=== PATIENT | male | born 1930 | race Caucasian/White ===

== ENCOUNTER 2017-11-07 10:28 | Emergency (ER) | payer MEDICARE, OTHER ==
[2017-11-07] MEDS ORDERED: Acetaminophen 500 MG TAB ONE (11:12)
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
[2017-11-07] MEDS ORDERED: Ibuprofen 200 MG TAB ONE (14:02)
[2017-11-07] MEDS ORDERED: HYDROcodone/Acetaminophen 5/325 mg Tablet ONE (14:02)
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
== END 2017-11-07 17:55 | disposition home or self-care (01) ==
LOC: ERS 10:28
DX: S22.069A Unspecified fracture of T7-T8 vertebra, initial encounter for closed fracture (principal); S22.089A Unspecified fracture of T11-T12 vertebra, initial encounter for closed fracture; G40.909 Epilepsy, unspecified, not intractable, without status epilepticus; E78.5 Hyperlipidemia, unspecified; I48.91 Unspecified atrial fibrillation; F03.90 Unspecified dementia, unspecified severity, without behavioral disturbance, psychotic disturbance, mood disturbance, and anxiety; Z79.01 Long term (current) use of anticoagulants; Z79.899 Other long term (current) drug therapy; V43.62XA Car passenger injured in collision with other type car in traffic accident, initial encounter
CPT/HCPCS: 72072; 72125; 72128; 99284; L0639

== ENCOUNTER 2017-12-06 10:03 | Outpatient (CLI) | payer MEDICARE ==
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
== END 2017-12-06 10:04 | disposition home or self-care (01) ==
LOC: TBSIIMAG 10:03
PROVIDERS: ATTEND Neurological Surgery
DX: S22.000A Wedge compression fracture of unspecified thoracic vertebra, initial encounter for closed fracture (principal)
CPT/HCPCS: 72070

== ENCOUNTER 2018-04-08 19:31 | Inpatient (IN) | payer MEDICARE ==
[2018-04-08] MEDS ORDERED: Acetaminophen 500 MG TAB ONE (20:03)
[2018-04-08 20:14] LABS: #Basophils 0.1 thou/uL (0.0-0.2); #Lymphocytes 0.5 thou/uL (1.20-3.40); #Monocytes 0.8 thou/uL (0.11-0.59); #Neutrophils 14.2 thou/uL (1.40-6.50); %Basophils 0.3 % (0.0-1.0); %Lymphocytes 3.2 % (21.0-51.0); %Monocytes 5.2 % (0.0-10.0); %Neutrophils 91.3 % (42.0-75.0); Hemoglobin 9.3 g/dL (14.0-18.0); Mean Corpuscular HGB CONC 32.3 g/dL (32.0-36.0); Mean Corpuscular Hemoglobin 27.6 pg (27.0-31.0); Mean Corpuscular Volume 85.4 fl (80.0-94.0); Platelet Count 173 thou/uL (130-400); RBC Distribution Width 15.3 % (11.5-14.5); Red Blood Cell (RBC) Count 3.36 mill/uL (4.70-6.10); White Blood Cell (WBC) Count 15.5 thou/uL (4.8-10.8)
[2018-04-08 20:27] LABS: ALT (SGPT) 13 U/L (8-55); AST (SGOT) 21 U/L (5-34); Albumin 4.1 g/dL (3.4-4.8); Alkaline Phosphatase 131 U/L (40-150); Anion Gap 14 mmol/L (10-20); BUN (Urea Nitrogen) 17 mg/dL (8.4-25.7); Bilirubin, Total 0.8 mg/dL (0.2-1.2); Calc. Creatinine Clearance 0 mL/min (70-130); Calcium 8.8 mg/dL (7.8-10.44); Carbon Dioxide 21 mmol/L (23-31); Chloride 105 mmol/L (98-107); Estimated GFR-MDRD 74; Globulin 2.6 g/dL (2.4-3.5); Glucose 166 mg/dL (83-110); Potassium 4.2 mmol/L (3.5-5.1); Protein, Total 6.7 g/dL (5.8-8.1); Sodium 136 mmol/L (136-145)
[2018-04-08] MEDS ORDERED: cefTRIAXone\\ROCEPHIN 1 GM VIAL ONE (20:34)
--- NOTE | 2018-04-08 21:44 | RAD ---
TWO VIEWS CHEST: 04/08/18 HISTORY: Fever and cough. PA and lateral view of the chest is obtained on 04/08/18. Comparison made to previous exam from 03/03/05. Two views chest demonstrates sternotomy wires seen. There is a prosthetic cardiac valve seen. Small b ilateral pleural effusions seen. Pulmonary vascular congestion is seen. Areas of air space opacities seen in the right middle lobe concerning for a right middle lobe pneumon ia. IMPRESSION: 1. Cardiomegaly and pulmonary vascular congestion. 2. Area of air space opacity compatible with an area of right middle lobe pneumonia. POS: [facility]
[2018-04-08 21:50] LABS: Bilirubin Small (Negative); Blood, Urine Negative (Negative); Clarity Slightly Cloudy (Clear); Glucose, Urine (Dipstick) Negative (Negative); Leukocyte Negative (Negative); Nitrite Negative (Negative); Protein, Urine (Dipstick) 30 mg/dL (Neg-Trace); Specific Gravity, Urine 1.025 (1.005-1.030); Urobilinogen 0.2 mg/dL (0.2-1.0); pH, Urine 5.5 (5.0-9.0)
[2018-04-08 21:52] LABS: RBC/HPF 0-3 HPF (0-3); Squamous Epithelial 0-3 HPF (0-3); WBC/HPF 0-3 HPF (0-3)
[2018-04-08 21:53] LABS: Bacteria/HPF Rare-Few HPF (None Seen)
[2018-04-08] MEDS ORDERED: Azithromycin 500 MG VIAL ONE (22:25)
[2018-04-08] MEDS ORDERED: Sodium Chloride 0.9% 500 ML IV SCH (23:34)
[2018-04-08] MEDS ORDERED: Acetaminophen 325 MG TAB PO PRN (23:34)
[2018-04-08 23:58] VITALS: BMI 26.1
[2018-04-09] MEDS ORDERED: Ondansetron ODT 4 MG TAB PO PRN (01:20)
[2018-04-09] MEDS ORDERED: Ondansetron HCl/PF 4 MG/2 ML Vial IVP PRN (01:20)
[2018-04-09] MEDS ORDERED: hydrALAZINE 20 MG/ML VIAL SLOW IVP PRN (01:20)
[2018-04-09] MEDS ORDERED: cloNIDine 0.1 MG TAB PO PRN (01:20)
[2018-04-09] MEDS ORDERED: Benzonatate 100 MG CAP PO PRN (01:20)
[2018-04-09] MEDS: Levothyroxine Sodium 100 MCG TAB PO SCH (02:43)
[2018-04-09] MEDS: Acetaminophen 500 MG TAB PO PRN (04:01)
[2018-04-09 05:04] LABS: Anion Gap 10 mmol/L (10-20); BUN (Urea Nitrogen) 15 mg/dL (8.4-25.7); Calc. Creatinine Clearance 79 mL/min (70-130); Calcium 8.2 mg/dL (7.8-10.44); Carbon Dioxide 24 mmol/L (23-31); Chloride 105 mmol/L (98-107); Estimated GFR-MDRD 87; Glucose 131 mg/dL (83-110); Potassium 3.9 mmol/L (3.5-5.1); Sodium 135 mmol/L (136-145)
[2018-04-09 05:48] LABS: Band 4 % (5-11); Hemoglobin 8.7 g/dL (14.0-18.0); Hypochromia SLIGHT = 6-15 cells (100X) (0-5/hpf); Lymphocytes 5 % (21-51); MDiff Complete? YES; Mean Corpuscular HGB CONC 32.2 g/dL (32.0-36.0); Mean Corpuscular Hemoglobin 28.7 pg (27.0-31.0); Mean Corpuscular Volume 89.1 fl (80.0-94.0); Mean Platelet Volume 8.6 fL (7.4-10.4); Monocytes 5 % (0-10); Neutrophil 86 % (42-75); PLT Morphology Comment Appears Adequate; Platelet Count 162 thou/uL (130-400); RBC Distribution Width 15.4 % (11.5-14.5); Red Blood Cell (RBC) Count 3.02 mill/uL (4.70-6.10); White Blood Cell (WBC) Count 13.5 thou/uL (4.8-10.8)
--- NOTE | 2018-04-09 06:49 | HP ---
DATE OF ADMISSION: 04/09/2018 PRIMARY CARE PHYSICIAN: Jacobo Lai [facility] in [place], [place]. CHIEF COMPLAINT: Productive cough with blood-tinged sputum. HISTORY OF PRESENT ILLNESS: This is an 87-year-old male who presented to [facility] Emergency Department complaining of blood tinged sputum which began in the last 24 h ours. The patient states he has been coughing for 4-6 weeks which has essentially been nonproductive , becoming more productive in the last 3-4 days. The patient apparently saw his primary care provide r within the last week and was placed on cough suppressant and another unknown type of medicine. The patient states his cough improved somewhat after initiating the cough suppressant, but had noticed p ain sputum in the last 24 hours. The patient denies any recent smoking and states he has remote use, quitting over 55 years prior to this evaluation. The patient states he has been compliant with his chronic medication regimen and denies any sick exposure history. The patient has noticed some lower extremity swelling, but continues to take a home diuretic for control of his edema. The patient admi ts he is currently on his influenza and pneumonia vaccination, receiving these through the [facility]. The patient denies any recent trauma, travel history, or family members who are ill. In th e emergency room, the patient underwent general evaluation including chest imaging, showing a right m iddle lobe infiltrate as well as pulmonary vascular prominence and cardiomegaly. Patient received Zi thromax, Rocephin, normal saline, and acetaminophen in the emergency room. The patient overall sympt omatically improved after transfer to the intermediate care unit. PAST MEDICAL HISTORY: 1. Chronic atrial fibrillation. 2. Hypertension. 3. History of seizures. 4. Hyperlipidemia. 5. 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 6. Pulmonary hypertension. 7. Obstructive sleep apnea with nocturnal CPAP. 8. Coronary artery disease. 9. Hypothyroidism. 10. History of gout. 11. Gastroesophageal reflux disease. 12. Chronic congestive heart failure with unknown ejection fraction. 13. Benign prostatic hyperplasia. PAST SURGICAL HISTORY: 1. Status post aortic valve replacement with bovine valve. 2. Status post coronary artery bypass grafting x1 with maze procedure. 3. Status post lumbar laminectomy. 4. Status post multiple cardiac catheterizations. 5. Status post tonsillectomy. 6. Status post cholecystectomy. 7. Status post left-thumb amputation. 8. Status post ERCP and colonoscopy. CURRENT MEDICATIONS: 1. Enteric coated aspirin 81 mg 1 tab p.o. daily. 2. Lipitor 20 mg p.o. daily. 3. Vitamin B12 1000 mcg p.o. at bedtime. 4. Lasix 40 mg p.o. daily. 5. Levothyroxine 100 mcg p.o. daily. 6. Toprol-XL 25 mg p.o. daily. 7. Niacin 50 mg p.o. daily. 8. Phenytoin 300 mg p.o. q.a.m. and 200 mg p.o. at bedtime. 9. Aldactone 50 mg p.o. b.i.d. ALLERGIES: PENICILLIN. FAMILY HISTORY: Positive for coronary artery disease. 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 [place] . Remote tobacco use greater than 5 0 years prior to this evaluation. Resides in [place], [place]. No alcohol or illicit drug use. REVIEW OF SYSTEMS: The following complete review of systems was negative, unless otherwise mentioned in the HPI or below: Constitutional: Weight loss or gain, ability to conduct usual activities. Sk in: Rash, itching. Eyes: Double vision, pain. ENT/Mouth: Nose bleeding, neck stiffness, pain, te nderness. Cardiovascular: Palpitations, dyspnea on exertion, orthopnea. Respiratory: Shortness of breath, wheezing, cough, hemoptysis, fever or night sweats. Gastrointestinal: Poor appetite, abdom inal pain, heartburn, nausea, vomiting, constipation, or diarrhea. Genitourinary: Urgency, frequenc y, dysuria, nocturia. Musculoskeletal: Pain, swelling. Neurologic/Psychiatric: Anxiety, depressio n. Allergy/Immunologic: Skin rash, bleeding tendency. PHYSICAL EXAMINATION: VITAL SIGNS: On admission, blood pressure 137/73, pulse 100, respiratory rate 20, temperature 98.4 d egrees Fahrenheit, O2 saturation 100% on 2 liters per minute by nasal cannula. GENERAL APPEARANCE: This is an 87-year-old male, alert and oriented x3, pleasant, conversa nt, in no acute distress. HEENT: Pupils are equal, round, and reactive to light and accommodation. Extraocular muscles are in tact. No scleral icterus, no conjunctival injection. Nares patent. OP is clear. Teeth in fair rep air. NECK: Supple. No cervical adenopathy, no thyromegaly, no carotid bruits, no JVD appreciated. Cervi yara spine with full active and passive range of motion. No meningeal signs appreciated. CHEST: Scattered rhonchi with bibasilar crackles. CARDIOVASCULAR: S1, S2 with irregular rate and rhythm with a 2/6 systolic ejection murmur loudest in the right upper sternal border. ABDOMEN: Rounded, soft, nontender, nondistended. Bowel sounds are positive in all four quadrants. No hepatosplenomegaly, no abdominal bruits, no rebound or guarding appreciated. EXTREMITIES: Warm and dry with fair turgor. Mild pitting edema to the proximal shins bilaterally. Pulses palpable distally at the dorsalis pedis, posterior tibial, and popliteal arteries bilaterally. Capillary refill less than 2 seconds. NEUROLOGIC: Cranial nerves II through XII are grossly intact. No focal or lateralizing signs apprec iated. PERTINENT LABORATORY AND X-RAY FINDINGS: Sodium 136, potassium 4.2, chloride 105, CO2 of 21, BUN 17, creatinine 0.96, estimated GFR 74, glucose 166. Lactic acid level 1.2, calcium 8.8. LFTs within no rmal limits. CBC showed a white blood cell count of 15.5, hemoglobin 9, hematocrit 29, platelet coun t 173 with 91% neutrophils. Portable chest x-ray dated 04/08/2018, by my review shows cardiomegaly w ith pulmonary vascular prominence and questionable right middle lobe infiltrate. EKG dated 8, by my interpretation shows atrial fibrillation with rapid ventricular response with heart rates in the 120s. Attenuated R waves in the precordial leads. Left axis deviation noted. No acute ST-T wa ve changes appreciated. ASSESSMENT AND PLAN: 1. Community-acquired right middle lobe pneumonia. The patient will be admitted to the intermediate care unit. Suspected gram positive organisms with potentially streptococcal species. We will raphael nue Levaquin 750 mg IV q.24 hours. Blood cultures pending x2. Continue general pulmonary supportive measures. Confirm pneumonia vaccination status. 2. Atrial fibrillation with rapid ventricular response. We will resume metoprolol XL 25 mg daily. Continue telemetry monitoring. Suspect tachycardia related to #1. Continue supportive management as outlined in #1. 3. Congestive heart failure. Ejection fraction unknown currently. We will obtain 2D transthoracic echocardiogram for accurate ejection fraction and to assess valvular function. Continue Lasix 40 mg p.o. daily. May consider intravenous diuretic therapy. The patient clinically decompensates. Check BNP level in the a.m. 4. Hypothyroidism. Continue levothyroxine 100 mcg p.o. daily. 5. Seizure disorder. Continue phenytoin 300 mg p.o. q.a.m. and 200 mg p.o. at bedtime. 6. Normocytic anemia. Chronic when compared with prior CBC. No current evidence to suggest acute b lood loss. Repeat CBC in the a.m. 7. Prophylaxis. Sequential compression devices while in bed. Pepcid 20 mg p.o. b.i.d. 8. Code status is FULL. Surrogate medical decision maker is patient's spouse.
[2018-04-09] MEDS: Furosemide 40 MG TAB PO SCH (08:21)
[2018-04-09] MEDS: Aspirin 81 mg Enteric Coated Tablet PO SCH (08:21)
[2018-04-09] MEDS: Atorvastatin Calcium 20 MG TAB PO SCH (08:21)
[2018-04-09] MEDS: Famotidine 20 MG TAB PO SCH ×2 (08:21→21:22)
[2018-04-09] MEDS: Spironolactone 25 MG TAB PO SCH ×2 (08:22→21:22)
[2018-04-09 11:49] LABS: Reticulocyte Count 1.7 % (0.5-1.5)
[2018-04-09 12:09] LABS: Iron 17 ug/dL (65-175); Iron Binding Capacity, Total 288 mcg/dL (261-462)
[2018-04-09 12:37] LABS: Free T4 (Free Thyroxine) 0.87 ng/dL (0.70-1.48); Thyroid Stimulating Hormone 2.6064 uIU/mL (0.35-4.94)
--- NOTE | 2018-04-09 13:57 | CON ---
DATE OF CONSULTATION: 04/09/2018 CONSULTING PHYSICIAN: Dr. Grey from the [facility]. REASON FOR CONSULTATION: Blood tinged sputum and cough. HISTORY OF PRESENT ILLNESS: This is a pleasant 87-year-old male, who gives his own history without l imitation. He came to the hospital yesterday with blood tinged sputum. He says he has been coughing for about 4-6 weeks. He has had at least two steroid dose packs and may have had some antibiotics a s an outpatient, but he is not for sure. He says symptoms have been exacerbated by getting out and m owing his grass. He feels better today. PAST MEDICAL HISTORY: 1. Chronic atrial fibrillation. 2. Hypertension. 3. Seizure disorder. 4. Hyperlipidemia. 5. Chronic kidney disease. 6. HERMES, requiring CPAP. 7. Pulmonary hypertension. 8. Coronary artery disease. 8. Hypothyroidism. 9. Gout. 10. Gastroesophageal reflux. 11. Chronic systolic heart failure. 12. Benign prostatic hypertrophy. PAST SURGICAL HISTORY: 1. Aortic valve replacement. 2. Coronary bypass grafting. 3. Lumbar laminectomy. 4. Cardiac catheterization. 5. Tonsillectomy. 6. Cholecystectomy. 7. Left thumb amputation. 8. ERCP with colonoscopy. MEDICATIONS PRIOR TO ADMISSION: Aspirin 81 mg daily, Lipitor 20 mg daily, vitamin B12 at 1000 mcg ni [facility], Lasix 40 mg daily, levothyroxine 100 mcg daily, Aldactone 50 mg twice daily, Toprol-XL 25 mg d aily, niacin 50 mg daily, phenytoin 300 mg in the morning and 200 mg at night. ALLERGIES: PENICILLIN. FAMILY MEDICAL HISTORY: Remarkable for coronary artery disease. SOCIAL HISTORY: Patient quit smoking more than 50 years ago. 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 He live s in [facility], does not consume alcohol, does not use illicit drugs. He is still fairly active aroun d the house. REVIEW OF SYSTEMS: Remarkable for shortness of breath, congestion, low grade fever, chills, and a pr oductive cough. Otherwise, 12-point review of system is negative. PHYSICAL EXAMINATION: VITAL SIGNS: Temperature 98.0, but last night got as high as 99.4, pulse 96, respirations 18, O2 sat 100% on 2 liters, and blood pressure 131/78. GENERAL: He is awake and alert and in no distress. HEENT: Pupils react. Sclerae icteric. Oropharynx is clear. NECK: No adenopathy, JVD, or bruits. LUNGS: He has inspiratory crackles in both bases. No dullness to percussion. CARDIAC: S1 and S2, irregularly irregular, without murmur, rub, or gallop. ABDOMEN: Soft, nontender, nondistended. EXTREMITIES: No clubbing, cyanosis, or edema. LAB AND X-RAY FINDINGS: Sodium 135, potassium 3.9, chloride 105, CO2 of 24, BUN 15, creatinine 0.8, glucose 131. White blood count 13.5, hematocrit 26.9, platelet count 162, 86% neutrophils, 4% bands. X-ray shows infiltrative changes primarily in the right base. ASSESSMENT: 1. Right middle lobe pneumonia. 2. Suspected concurrent mild congestive heart failure. 3. History of chronic systolic heart failure. 4. History of seizure disorder. PLAN: 1. The patient is currently on Levaquin, which I assume is being preferred because of his allergy to PENICILLINS. We have to keep in mind that Levaquin does lower the seizure threshold and should seiz ure returned, this may need to be changed to an alternative substance such as doxycycline. 2. We would obtain echocardiogram and perhaps have his test and turn up technician involved. This could be simply an exacerbation of his heart failure. 3. He is stable for transfer to telemetry at any point. 4. We will follow with you.
[2018-04-09] MEDS: Cyanocobalamin (Vitamin B-12) 1,000 MCG TAB PO SCH (21:22)
[2018-04-09] MEDS: Phenytoin 50 MG Chewable Tablet PO SCH (21:22)
[2018-04-10] MEDS: Levothyroxine Sodium 100 MCG TAB PO SCH (06:39)
[2018-04-10] MEDS: Aspirin 81 mg Enteric Coated Tablet PO SCH (09:12)
[2018-04-10] MEDS: Famotidine 20 MG TAB PO SCH ×2 (09:12→20:29)
[2018-04-10] MEDS: Atorvastatin Calcium 20 MG TAB PO SCH (09:12)
[2018-04-10] MEDS: Furosemide 40 MG TAB PO SCH (09:12)
[2018-04-10] MEDS: Spironolactone 25 MG TAB PO SCH ×2 (09:13→20:29)
--- NOTE | 2018-04-10 11:20 | PRG ---
DATE OF SERVICE: 04/10/2018 SUBJECTIVE: Mr. Giles feels better today. OBJECTIVE: VITAL SIGNS: His temperature is 98.0, pulse 99, respirations 24, O2 sat 99% on room air. HEENT: Unremarkable. NECK: Without adenopathy or JVD. LUNGS: A few crackles both bases. CARDIAC: S1 and S2 regular. ABDOMEN: Soft. EXTREMITIES: No edema. LABORATORY DATA: No new labs were done today. ASSESSMENT: 1. Right middle lobe pneumonia 2. Diastolic cardiac dysfunction. 3. History of seizure disorder. 4. Obstructive sleep apnea. PLAN: 1. His AHI on his CPAP machine shows an elevated index of 57 events per hour. It is clear that the CPAP is probably not working very well. 2. In terms of his pneumonia, he seems to be responding to the Levaquin. 3. Continue diuretics. 4. He is stable for transfer out to the medical floor. I will continue the antibiotics for another day or two.
--- NOTE | 2018-04-10 15:43 | PDOC.PN ---
- Subjective Encounter Start Date: 04/10/18 Encounter Start Time: 10:00 Pt seen for followup re: community acquired pneumonia. Reports cough and blood- tinged sputum. No fevers. - Objective Resuscitation Status: Resuscitation Status FULL:Full Resuscitation MAR Reviewed: Yes Vital Signs & Weight: Vital Signs (12 hours) Temp Pulse Resp BP BP Pulse Ox 04/10/18 13:45 97.8 F 101 H 20 136/78 100 04/10/18 11:49 97.7 F 107 H 13 131/69 94 L 04/10/18 07:54 98.0 F 99 24 H 99 04/10/18 07:49 98.0 F 124 H 24 H 136/70 04/10/18 03:49 100.1 F H 112 H 16 145/77 H 97 Weight Weight 192 lb 14.4 oz I&O: 04/09/18 04/10/18 04/11/18 06:59 06:59 06:59 Intake Total 670 1400 Output Total 375 500 Balance 295 900 Result Diagrams: 04/09/18 04:14 04/09/18 04:14 EKG Reviewed by me: Yes (Tele: elizabet eaton) Phys Exam - Physical Examination Constitutional: NAD HEENT: moist MMs, sclera anicteric, oral pharynx no lesions, 2+ tonsils Neck: no nodes, no JVD, supple, full ROM Respiratory: no wheezing, no rhonchi crackles R midlung Cardiovascular: no rub, irregular S1, S2 Gastrointestinal: soft, non-tender, no distention, positive bowel sounds Neurological: moves all 4 limbs Psychiatric: normal affect, A&O x 3 Dx/Plan (1) CAP (community acquired pneumonia) Code(s): J18.9 - PNEUMONIA, UNSPECIFIED ORGANISM Status: Acute Comment: continue IV antibiotics as below (2) Afib Code(s): I48.91 - UNSPECIFIED ATRIAL FIBRILLATION Status: Chronic Comment: continue beta brina. Rate-controlled (3) CHF (congestive heart failure) Code(s): I50.9 - HEART FAILURE, UNSPECIFIED Status: Chronic Comment: Continue oral furosemide (4) Hypothyroidism Code(s): E03.9 - HYPOTHYROIDISM, UNSPECIFIED Status: Chronic Comment: stable , continue thyroid replacement therapy - Plan * . Review of Systems - Review of Systems Constitutional: negative: fever, chills, sweats, weakness, malaise Respiratory: Cough, Hemoptysis, SOB with Excertion, Sputum. negative: Dry, Shortness of Breath, Pleuritic Pain, Wheezing Cardiovascular: negative: chest pain, palpitations, orthopnea, paroxysmal nocturnal dyspnea, edema, light headedness Gastrointestinal: negative: Nausea, Vomiting, Abdominal Pain, Diarrhea, Constipation, Melena, Hematochezia Genitourinary: negative: Dysuria, Frequency, Incontinence, Hematuria, Retention - Medications/Allergies Allergies/Adverse Reactions: Allergies Allergy/AdvReac Type Severity Reaction Status Date / Time Penicillins Allergy Verified 04/09/18 00:19 Medications: Current Medications Acetaminophen (Tylenol) 1,000 mg PO Q6H PRN PRN Reason: Headache/Fever or Mild Pain Last Admin: 04/09/18 04:01 Dose: 1,000 mg Aspirin (Ecotrin) 81 mg PO DAILY [facility] Last Admin: 04/10/18 09:12 Dose: 81 mg Atorvastatin Calcium (Lipitor) 20 mg PO DAILY [facility] Last Admin: 04/10/18 09:12 Dose: 20 mg Benzonatate (Tessalon) 200 mg PO Q6H PRN PRN Reason: Cough Clonidine (Catapres) 0.1 mg PO Q4H PRN PRN Reason: Systolic BP > 180 Cyanocobalamin (Vitamin B-12) 1,000 mcg PO HS [facility] Last Admin: 04/09/18 21:22 Dose: 1,000 mcg Famotidine (Pepcid) 20 mg PO BID [facility] Last Admin: 04/10/18 09:12 Dose: 20 mg Furosemide (Lasix) 40 mg PO DAILY [facility] Last Admin: 04/10/18 09:12 Dose: 40 mg Hydralazine HCl (Apresoline) 10 mg SLOW IVP Q4H PRN PRN Reason: Systolic BP > 180 Levofloxacin 750 mg/ Device 150 mls @ 100 mls/hr IVPB Q24HR [facility] Last Admin: 04/10/18 03:42 Dose: 150 mls Levothyroxine Sodium (Synthroid) 100 mcg PO 0600 [facility] Last Admin: 04/10/18 06:39 Dose: 100 mcg Metoprolol Succinate (Toprol Xl) 25 mg PO DAILY [facility] Last Admin: 04/10/18 09:12 Dose: 25 mg Niacin (Niacin) 50 mg PO DAILY [facility] Last Admin: 04/10/18 09:12 Dose: 50 mg Ondansetron HCl (Zofran Odt) 4 mg PO Q6H PRN PRN Reason: Nausea/Vomiting Ondansetron HCl (Zofran) 4 mg IVP Q6H PRN PRN Reason: Nausea/Vomiting Phenytoin Sodium (Dilantin Chewable) 50 mg PO Q2DAYS@2100 [facility] Last Admin: 04/09/18 21:22 Dose: 50 mg Phenytoin Sodium (Dilantin Er) 200 mg PO Q2DAYS@2100 [facility] Phenytoin Sodium (Dilantin Er) 300 mg PO QAM [facility] Last Admin: 04/10/18 09:13 Dose: 300 mg Sodium Chloride (Flush - Normal Saline) 10 ml IVF Q12HR [facility] Last Admin: 04/10/18 09:13 Dose: 10 ml Sodium Chloride (Flush - Normal Saline) 10 ml IVF PRN PRN PRN Reason: Saline Flush Spironolactone (Aldactone) 50 mg PO BID [facility] Last Admin: 04/10/18 09:13 Dose: 50 mg
[2018-04-10] MEDS: Cyanocobalamin (Vitamin B-12) 1,000 MCG TAB PO SCH (20:29)
[2018-04-11] MEDS: Levothyroxine Sodium 100 MCG TAB PO SCH (05:52)
[2018-04-11] MEDS: Spironolactone 25 MG TAB PO SCH ×2 (08:31→19:56)
[2018-04-11] MEDS: Famotidine 20 MG TAB PO SCH ×2 (08:31→19:56)
[2018-04-11] MEDS: Atorvastatin Calcium 20 MG TAB PO SCH (08:31)
[2018-04-11] MEDS: Aspirin 81 mg Enteric Coated Tablet PO SCH (08:31)
[2018-04-11] MEDS: Furosemide 40 MG TAB PO SCH (08:31)
--- NOTE | 2018-04-11 09:46 | PRG ---
DATE OF SERVICE: 04/11/2018 The patient is doing better. He has a small episode of hemoptysis morning, but overall, his hemoptys is has decreased significantly. PHYSICAL EXAMINATION: VITAL SIGNS: Temperature 98.0, pulse 114, respirations 20, blood pressure 169/75. HEENT: Unremarkable. NECK: No JVD. LUNGS: Clear at the apices, but crackles at the bases. CARDIAC: S1 and S2 regular. ABDOMEN: Soft. EXTREMITIES: No edema. ASSESSMENT: 1. Pneumonia. 2. Diastolic cardiac dysfunction. 3. History of seizure disorder. 4. Obstructive sleep apnea. PLAN: 1. His CPAP is actually not on the correct settings. The prescription he has is for an auto - SV Bi PAP. His machine is not capable of doing that. He is being cared for by the [facility] for that pr oblem. That will have to be addressed as an outpatient. 2. He needs to continue IV antibiotics for another day or so. 3. Hopefully he can go home in 1-2 days.
[2018-04-11 10:39] LABS: #Eosinphils 0.2 thou/uL (0.0-0.7); #Monocytes 0.8 thou/uL (0.11-0.59); #Neutrophils 7.6 thou/uL (1.40-6.50); %Basophils 0.3 % (0.0-1.0); %Eosinophils 1.9 % (0.0-10.0); %Lymphocytes 10.4 % (21.0-51.0); %Monocytes 8.6 % (0.0-10.0); %Neutrophils 78.8 % (42.0-75.0); Hemoglobin 9.1 g/dL (14.0-18.0); Mean Corpuscular HGB CONC 31.2 g/dL (32.0-36.0); Mean Corpuscular Hemoglobin 27.6 pg (27.0-31.0); Mean Corpuscular Volume 88.4 fl (80.0-94.0); Mean Platelet Volume 7.9 fL (7.4-10.4); Platelet Count 159 thou/uL (130-400); RBC Distribution Width 15.3 % (11.5-14.5); Red Blood Cell (RBC) Count 3.29 mill/uL (4.70-6.10); White Blood Cell (WBC) Count 9.7 thou/uL (4.8-10.8)
[2018-04-11 11:02] LABS: Anion Gap 11 mmol/L (10-20); BUN (Urea Nitrogen) 16 mg/dL (8.4-25.7); Calc. Creatinine Clearance 74 mL/min (70-130); Calcium 8.5 mg/dL (7.8-10.44); Carbon Dioxide 24 mmol/L (23-31); Chloride 103 mmol/L (98-107); Estimated GFR-MDRD 79; Glucose 171 mg/dL (83-110); Potassium 4.1 mmol/L (3.5-5.1); Sodium 134 mmol/L (136-145)
--- NOTE | 2018-04-11 15:52 | PDOC.PN ---
- Subjective Encounter Start Date: 04/11/18 Encounter Start Time: 08:40 Pt seen for followup re: pneumonia. Cough is better. Sputum blood-tinged early AM, but not now. No fevers or chills. - Objective Resuscitation Status: Resuscitation Status FULL:Full Resuscitation MAR Reviewed: Yes Vital Signs & Weight: Vital Signs (12 hours) Temp Pulse Resp BP BP Pulse Ox 04/11/18 08:00 98.0 F 114 H 20 97 04/11/18 07:55 98.0 F 114 H 20 130/72 04/11/18 04:44 97.7 F 93 20 169/75 H 98 Weight Weight 194 lb 3.2 oz I&O: 04/10/18 04/11/18 04/12/18 06:59 06:59 06:59 Intake Total 1400 1050 Output Total 500 425 Balance 900 625 Result Diagrams: 04/12/18 04:16 04/12/18 04:16 Additional Labs: Labs reviewed by me Phys Exam - Physical Examination Constitutional: NAD HEENT: moist MMs Neck: supple Respiratory: clear to auscultation bilateral Cardiovascular: no rub, irregular S1, S2 Gastrointestinal: soft Neurological: moves all 4 limbs Psychiatric: normal affect Dx/Plan (1) CAP (community acquired pneumonia) Code(s): J18.9 - PNEUMONIA, UNSPECIFIED ORGANISM Status: Acute Comment: continue IV levofloxacin (2) Afib Code(s): I48.91 - UNSPECIFIED ATRIAL FIBRILLATION Status: Chronic Comment: Rate-controlled, continue metoprolol (3) CHF (congestive heart failure) Code(s): I50.9 - HEART FAILURE, UNSPECIFIED Status: Chronic Comment: stable , continue oral furosemide (4) Hypothyroidism Code(s): E03.9 - HYPOTHYROIDISM, UNSPECIFIED Status: Chronic Comment: stable , continue levothyroxine - Plan * . Review of Systems - Review of Systems Constitutional: negative: fever, chills, sweats, weakness, malaise Respiratory: Cough, Hemoptysis, Sputum. negative: Dry, Shortness of Breath, SOB with Excertion, Pleuritic Pain, Wheezing Cardiovascular: negative: chest pain, palpitations, orthopnea, paroxysmal nocturnal dyspnea, edema, light headedness - Medications/Allergies Allergies/Adverse Reactions: Allergies Allergy/AdvReac Type Severity Reaction Status Date / Time Penicillins Allergy Verified 04/09/18 00:19 Medications: Current Medications Acetaminophen (Tylenol) 1,000 mg PO Q6H PRN PRN Reason: Headache/Fever or Mild Pain Last Admin: 04/09/18 04:01 Dose: 1,000 mg Aspirin (Ecotrin) 81 mg PO DAILY [facility] Last Admin: 04/11/18 08:31 Dose: 81 mg Atorvastatin Calcium (Lipitor) 20 mg PO DAILY [facility] Last Admin: 04/11/18 08:31 Dose: 20 mg Benzonatate (Tessalon) 200 mg PO Q6H PRN PRN Reason: Cough Clonidine (Catapres) 0.1 mg PO Q4H PRN PRN Reason: Systolic BP > 180 Cyanocobalamin (Vitamin B-12) 1,000 mcg PO HS [facility] Last Admin: 04/10/18 20:29 Dose: 1,000 mcg Famotidine (Pepcid) 20 mg PO BID [facility] Last Admin: 04/11/18 08:31 Dose: 20 mg Furosemide (Lasix) 40 mg PO DAILY [facility] Last Admin: 04/11/18 08:31 Dose: 40 mg Hydralazine HCl (Apresoline) 10 mg SLOW IVP Q4H PRN PRN Reason: Systolic BP > 180 Levofloxacin 750 mg/ Device 150 mls @ 100 mls/hr IVPB Q24HR [facility] Last Admin: 04/11/18 02:08 Dose: 150 mls Levothyroxine Sodium (Synthroid) 100 mcg PO 0600 [facility] Last Admin: 04/11/18 05:52 Dose: 100 mcg Metoprolol Succinate (Toprol Xl) 25 mg PO DAILY [facility] Last Admin: 04/11/18 08:31 Dose: 25 mg Niacin (Niacin) 50 mg PO DAILY [facility] Last Admin: 04/11/18 08:32 Dose: 50 mg Ondansetron HCl (Zofran Odt) 4 mg PO Q6H PRN PRN Reason: Nausea/Vomiting Ondansetron HCl (Zofran) 4 mg IVP Q6H PRN PRN Reason: Nausea/Vomiting Phenytoin Sodium (Dilantin Chewable) 50 mg PO Q2DAYS@2100 [facility] Last Admin: 04/09/18 21:22 Dose: 50 mg Phenytoin Sodium (Dilantin Er) 200 mg PO Q2DAYS@2100 [facility] Last Admin: 04/10/18 20:29 Dose: 200 mg Phenytoin Sodium (Dilantin Er) 300 mg PO QAM [facility] Last Admin: 04/11/18 08:32 Dose: 300 mg Sodium Chloride (Flush - Normal Saline) 10 ml IVF Q12HR [facility] Last Admin: 04/11/18 08:33 Dose: 10 ml Sodium Chloride (Flush - Normal Saline) 10 ml IVF PRN PRN PRN Reason: Saline Flush Last Admin: 04/11/18 02:09 Dose: 10 ml Spironolactone (Aldactone) 50 mg PO BID [facility] Last Admin: 04/11/18 08:31 Dose: 50 mg
[2018-04-11] MEDS: Cyanocobalamin (Vitamin B-12) 1,000 MCG TAB PO SCH (19:56)
[2018-04-11] MEDS: Acetaminophen 500 MG TAB PO PRN (19:56)
[2018-04-11] MEDS: Phenytoin 50 MG Chewable Tablet PO SCH (19:56)
[2018-04-12 05:02] LABS: #Eosinphils 0.4 thou/uL (0.0-0.7); #Lymphocytes 1.1 thou/uL (1.20-3.40); #Monocytes 0.9 thou/uL (0.11-0.59); #Neutrophils 5.8 thou/uL (1.40-6.50); %Basophils 0.4 % (0.0-1.0); %Eosinophils 4.6 % (0.0-10.0); %Monocytes 11.2 % (0.0-10.0); %Neutrophils 70.8 % (42.0-75.0); Hemoglobin 9.3 g/dL (14.0-18.0); Mean Corpuscular HGB CONC 30.8 g/dL (32.0-36.0); Mean Corpuscular Hemoglobin 27.4 pg (27.0-31.0); Mean Corpuscular Volume 88.9 fl (80.0-94.0); Mean Platelet Volume 8.5 fL (7.4-10.4); Platelet Count 183 thou/uL (130-400); RBC Distribution Width 15.4 % (11.5-14.5); White Blood Cell (WBC) Count 8.1 thou/uL (4.8-10.8)
[2018-04-12 05:10] LABS: Anion Gap 9 mmol/L (10-20); BUN (Urea Nitrogen) 17 mg/dL (8.4-25.7); Calc. Creatinine Clearance 86 mL/min (70-130); Calcium 8.5 mg/dL (7.8-10.44); Carbon Dioxide 26 mmol/L (23-31); Chloride 106 mmol/L (98-107); Estimated GFR-MDRD Greater than 90; Glucose 95 mg/dL (83-110); Potassium 3.8 mmol/L (3.5-5.1); Sodium 137 mmol/L (136-145)
[2018-04-12] MEDS: Levothyroxine Sodium 100 MCG TAB PO SCH (05:14)
[2018-04-12] MEDS: Aspirin 81 mg Enteric Coated Tablet PO SCH (08:10)
[2018-04-12] MEDS: Furosemide 40 MG TAB PO SCH (08:10)
[2018-04-12] MEDS: Famotidine 20 MG TAB PO SCH (08:11)
[2018-04-12] MEDS: Atorvastatin Calcium 20 MG TAB PO SCH (08:11)
[2018-04-12] MEDS: Spironolactone 25 MG TAB PO SCH (08:21)
--- NOTE | 2018-04-12 09:21 | PRG ---
DATE OF SERVICE: 04/12/2018 He feels better. He is still coughing and occasionally has some blood tinged sputum. PHYSICAL EXAMINATION: VITAL SIGNS: Temperature 98.7, pulse 106, respirations 20, O2 sat 96%, blood pressure 146/64. HEENT: Unremarkable. NECK: No JVD. CHEST: A few crackles in the bases. CARDIAC: S1 and S2 regular. ABDOMEN: Soft. EXTREMITIES: No edema. LABORATORY DATA: White blood cell count 8.1, hematocrit 30, platelet count 183. Sodium 137, potassi um 3.8, chloride 106, CO2 26, BUN 17, creatinine 0.7, glucose 95. ASSESSMENT: 1. Pneumonia. 2. Diastolic cardiac dysfunction. 3. History of seizure disorder. 4. Obstructive sleep apnea. PLAN: Switch over to oral antibiotics. I do think it is safe for him to be discharged. He has foll owup later this week at the [facility] in regards to his CPAP. He is currently on inappropriate settings com pared to the prescription he is carrying. He is also having a grossly elevated AHI of 58 per hour. He needs to complete about 10 days of antibiotics total between hospital and home.
--- NOTE | 2018-04-12 09:55 | PQF ---
CLINICAL DOCUMENTATION IMPROVEMENT CLARIFICATION FORM: ICD-10 Updated PLEASE DO AN ADDENDUM TO THE PROGRESS NOTE WITH ANY DOCUMENTATION UPDATES OR ADDITIONS AND CARRY THROUGH TO DC SUMMARY. THANK YOU. DATE: 04/12 ATTN: DR. YUSRA SANDOVAL Please exercise your independent, professional judgment in responding to the clarification form. Clinical indicators are provided on the bottom of this form for your review Please check appropriate box(s): HEART FAILURE A. TYPE: [ ] Systolic / HFrEF [ ] Diastolic / HFpEF [ ] Combined Systolic / Diastolic B. ACUITY [ ] Acute [ ] Acute on Chronic [ ] Chronic [ ] Other diagnosis [ ] Unable to determine For continuity of documentation, please document condition throughout progress notes and discharge summary. Thank You. CLINICAL INDICATORS - SIGNS / SYMPTOMS / LABS BNP: 213 (04/09) ECHO (04/09): EF 60-65%, MILD LVH, PROBABLY DIASTOLIC DYSFUNCTION PHYSICIAN H&P DOCUMENTATION 04/09: ASSESSMENT: 3) CHF, EF UNKNOWN CURRENTLY PULMONOLOGY CONSULT 04/09: ASSESSMENT: 2) SUSPECTED CONCURRENT MILD CHF PULMONOLOGY PN 04/10 - : 2) DIASTOLIC CARDIAC DYSFUNCTION ATTENDING PN 04/10 & : 3) CHF, UNSPECIFIED, CHRONIC. CONTINUE ORAL FUROSEMIDE RISKS: CAD CKD 2 HTN TREATMENTS: ORAL FUROSEMIDE (04/09 - PRESENT) TELEMETRY MONITORING ON ADMIT ECHO THANK YOU! Sharon (This form is maintained as a part of the permanent medical record) 2014 [employer]. All Rights Reserved Sharon Belle RN, BSN [email or web address] Office: [phone] [facility]ITAL[facility]
--- NOTE | 2018-04-12 10:04 | PQF ---
CLINICAL DOCUMENTATION IMPROVEMENT CLARIFICATION FORM: ICD-10 Updated PLEASE DO AN ADDENDUM TO THE PROGRESS NOTE WITH ANY DOCUMENTATION UPDATES OR ADDITIONS AND CARRY THROUGH TO DC SUMMARY. THANK YOU. DATE: 04/12 ATTN: DR. YUSRA SANDOVAL Please exercise your independent, professional judgment in responding to the clarification form. Clinical indicators are provided on the bottom of this form for your review Please check appropriate box(es): [ ] Sepsis due to: (Pna, UTI, gangrenous gall bladder, etc.) [ ] Severe sepsis with acute organ dysfunction of: (Examples: respiratory failure, encephalopathy, acute kidney failure, other) [ ] Localized infection without sepsis [ ] Other diagnosis [ ] Unable to determine For continuity of documentation, please document condition throughout progress notes and discharge summary. Thank You. CLINICAL INDICATORS - SIGNS / SYMPTOMS / LABS ER PRESENTATION 04/08: T: 102.5 (R) HR: 118 RR: 24 WBC: 15.5 GLUCOSE: 131-171 (NON-DIABETIC) ER PHYSICIAN DIAGNOSES DOCUMENTATION 04/08: PNEUMONIA, SEPSIS RISK FACTORS: COMMUNITY ACQUIRED PNEUMONIA ADVANCED AGE TREATMENTS: IV ANTIBIOTIC (LEVOFLOXCIN 04/08 - PRESENT) PULMONOLOGY CONSULT THANK YOU! Sharon (This form is maintained as a part of the permanent medical record) 2014 [employer]. All Rights Reserved Sharon Belle RN, BSN [email or web address] Office: [phone] [facility]ENTERNeeraj
[2018-04-12 13:09] VITALS: BP 135/68; TEMP 97.7
--- NOTE | 2018-04-12 13:20 | DIS ---
DATE OF ADMISSION: 04/08/2018 DATE OF DISCHARGE: 04/12/2018 PRIMARY CARE PROVIDER: Jacobo Lai M.D. DISCHARGE DIAGNOSES: 1. Sepsis. 2. Community-acquired pneumonia. 3. Chronic diastolic congestive heart failure. CONDITION OF PATIENT ON THE DAY OF DISCHARGE: Stable. I assessed Mr. Giles on the day of discharge . He denies any chest pain or shortness of breath. Cough is better. Vital signs are stable. S1 an d S2 are heard, regular. Lungs are clear to auscultation bilaterally. DISCHARGE MEDICATIONS: He is being discharged home on levofloxacin 750 mg daily for 6 more days. Ot herwise, his preadmission home medications as dictated by Dr. Grey on history and physical note from 04/09/2018 were not changed. CONSULTATIONS DURING THIS HOSPITALIZATION: Pulmonology, Dr. Gutierrez. HOSPITAL COURSE: Mr. Giles is a pleasant 87-year-old gentleman who was admitted to [facility] on 04/08/2018 for sepsis secondary to community-acquired pneumonia. He was treated with intravenous antibiotics initially, subsequently stepped down to oral antibiotics. He also had mildly elevated BNP. A 2D echocardiogram showed left ventricular ejection fraction greater than 60%- 65%, mild LVH and probable diastolic dysfunction. He also had severe tricuspid regurgitation and mod erately elevated pulmonary artery pressure. He had mild aortic stenosis with valve area of 2.04 squa re cm. Pulmonology Service also found during this hospitalization that his CPAP was not on the current setti ngs. The prescription he had was for an auto SV BiPAP, and this machine is not capable of doing that . That will have to be addressed by the [facility] as an outpatient, according to Pulmonology Servi ce. On the day of discharge, he has white count 8,100, hemoglobin 9.3, platelet count 183. Normal sodium , normal potassium, and normal creatinine. His TSH was normal during this hospitalization. Iron lev el was low at 17, but TIBC was normal at 288. BNP was mildly elevated at 213.2. Many thanks for allowing me to participate in your patient's care. Please feel free to contact me wi th any questions or concerns. DISCHARGE DESTINATION: Home. TOTAL AMOUNT OF TIME SPENT COORDINATING THIS DISCHARGE: 33 minutes.
== END 2018-04-12 13:26 | disposition home or self-care (01) | DRG 871 ==
LOC: SCSER 19:31 → IMCU/EMU 20:30 → T4-B 04-10 13:44
PROVIDERS: ADMIT Family Medicine; ATTEND Family Medicine
DX: A41.9 Sepsis, unspecified organism (principal); J18.9 Pneumonia, unspecified organism; I13.0 Hypertensive heart and chronic kidney disease with heart failure and stage 1 through stage 4 chronic kidney disease, or unspecified chronic kidney disease; I50.42 Chronic combined systolic (congestive) and diastolic (congestive) heart failure; I48.2 Chronic atrial fibrillation; Z79.01 Long term (current) use of anticoagulants; E78.5 Hyperlipidemia, unspecified; G47.33 Obstructive sleep apnea (adult) (pediatric); I25.10 Atherosclerotic heart disease of native coronary artery without angina pectoris; E03.9 Hypothyroidism, unspecified; K21.9 Gastro-esophageal reflux disease without esophagitis; N40.0 Benign prostatic hyperplasia without lower urinary tract symptoms; N18.2 Chronic kidney disease, stage 2 (mild); E87.70 Fluid overload, unspecified; Z87.891 Personal history of nicotine dependence; I27.20 Pulmonary hypertension, unspecified; Z95.1 Presence of aortocoronary bypass graft; Z98.1 Arthrodesis status; Z89.012 Acquired absence of left thumb; Z95.3 Presence of xenogenic heart valve; Z79.82 Long term (current) use of aspirin; Z88.0 Allergy status to penicillin; G40.909 Epilepsy, unspecified, not intractable, without status epilepticus; I36.1 Nonrheumatic tricuspid (valve) insufficiency; I35.0 Nonrheumatic aortic (valve) stenosis
CPT/HCPCS: 36415; 71046; 80048; 80053; 81003; 81015; 82274; 83540; 83550; 83605; 83880; 84439; 84443; 85007; 85025; 85027; 85046; 87040; 93005; 93306; 96365; 96366; 96375; A4216; J0456; J0696; J1956

== ENCOUNTER 2018-07-13 19:30 | Outpatient (CLI) | payer MEDICARE | END 2018-07-13 19:31 | disposition home or self-care (01) | LOC: SLEEPLAB 19:30 | PROVIDERS: ATTEND Internal Medicine Critical Care Medicine | DX: G47.33 Obstructive sleep apnea (adult) (pediatric) (principal); R53.83 Other fatigue; R06.83 Snoring; R40.0 Somnolence; Z68.26 Body mass index [BMI] 26.0-26.9, adult | CPT/HCPCS: 95811 ==

== ENCOUNTER 2019-01-09 07:04 | Day surgery (SDC) | payer MEDICARE ==
[2019-01-06 11:35] VITALS: BMI 26.4
[2019-01-09] MEDS ORDERED: Lidocaine 2% 10 ML INJ ONE (07:48)
--- NOTE | 2019-01-09 09:58 | OP ---
DATE OF PROCEDURE: 01/09/2019 PROCEDURE PERFORMED: Right thoracentesis. PREOPERATIVE DIAGNOSIS: Right pleural effusion. POSTOPERATIVE DIAGNOSIS: Right pleural effusion. ANESTHESIA: 1% lidocaine without epinephrine. DESCRIPTION OF PROCEDURE: Informed consent was obtained from the patient. He understood the risks involved and agreed to proceed. The patient's right chest was marked with a pen to indicate it was the right side. Ultrasound was used to jason the operative site. Operative site was approximately 6th to 7th interspace at the mid scapular line posteriorly. A small amount of lidocaine was used to anesthetize the entry site. The site had been previously cleaned with chlorhexidine and draped sterilely. A Itti-[id number] catheter was used to enter the pleural space. Approximately 1600 mL of nicholas-colored pleural fluid was removed. The procedure was tolerated well. Postoperative x-ray was pending. Job ID: [id number]
--- NOTE | 2019-01-09 10:21 | RAD ---
CHEST 1 VIEW: Date: 01/09/19 HISTORY: Thoracentesis. COMPARISON: CT chest dated 01/04/19. FINDINGS: Marked interval improvement to right pleural effusion with only small volume right pleural fluid nasra ining. No pneumothorax. Heart size is enlarged. Aortic valve replacement. No acute osseous abnormalit y. IMPRESSION: Marked interval improvement of the right pleural effusion. POS: TPC
[2019-01-09 10:53] LABS: BF Color Yellow; Body Fluid Source Thoracentesis Fluid; Clarity Hazy (Clear); RBC Background Count 0.002; Tube # EDTA; WBC/NonHematic-Auto 715 /cumm
[2019-01-09 11:11] LABS: BF RBC Count - Manual 178 /cumm
[2019-01-09 12:26] LABS: BF Segmented Neutrophils 2 %; Cell Count Non Hematic 34 %; Lymphocytes 64 %
== END 2019-01-09 09:50 | disposition home or self-care (01) ==
LOC: SDC/OP 07:04
PROVIDERS: ATTEND Internal Medicine Critical Care Medicine
PROC: 0W993ZZ Drainage of Right Pleural Cavity, Percutaneous Approach (ICD-10-PCS; principal; 2019-01-09)
DX: J90 Pleural effusion, not elsewhere classified (principal); Z87.891 Personal history of nicotine dependence; Z79.82 Long term (current) use of aspirin; Z79.899 Other long term (current) drug therapy; Z88.0 Allergy status to penicillin
CPT/HCPCS: 32554; 71045; 82150; 82945; 83615; 83986; 84157; 84478; 85060; 87070; 87116; 87205; 87206; 88112; 88305; 89051; J1642; J2001

== ENCOUNTER 2019-02-10 14:24 | Outpatient (CLI) | payer MEDICARE ==
--- NOTE | 2019-02-10 16:08 | RAD ---
TWO VIEW CHEST: COMPARISON: 01/09/2019. CLINICAL HISTORY: Dyspnea. FINDINGS: There is a moderate right pleural effusion which has developed comparison exam. There is enlargement of the cardiac silhouette and prominence of bilateral perihilar vasculature. Interstitial reticulon odularity is present at the mid right lung zone. Chest is otherwise similar. IMPRESSION: 1. Moderate right effusion. 2. Enlarged cardiac silhouette and pulmonary vasculature indicating congestive heart failure. 3. Subtle reticulonodularity at the right mid lung zone which could relate to an atypical infection. POS: TPC
== END 2019-02-10 14:25 | disposition home or self-care (01) ==
LOC: RAD 14:24
PROVIDERS: ATTEND Internal Medicine Critical Care Medicine
DX: R06.00 Dyspnea, unspecified (principal); J90 Pleural effusion, not elsewhere classified; I50.9 Heart failure, unspecified; R91.8 Other nonspecific abnormal finding of lung field
CPT/HCPCS: 71046

== ENCOUNTER 2019-05-09 12:01 | Outpatient (CLI) | payer MEDICARE ==
--- NOTE | 2019-05-09 12:38 | RAD ---
2 views chest. HISTORY: Dyspnea. PA and lateral views of the chest obtained. Comparison made to previous exam from 02/08/2019. 2 views chest demonstrates sternotomy wires seen. A small right-sided pleural effusion seen. Cardiomegaly seen. Pulmonary vascular congestion seen. Aortic valve is visualized. IMPRESSION: Right-sided pleural effusion.
== END 2019-05-09 12:02 | disposition home or self-care (01) ==
LOC: RAD 12:01
PROVIDERS: ATTEND Internal Medicine Critical Care Medicine
DX: R06.00 Dyspnea, unspecified (principal); J90 Pleural effusion, not elsewhere classified
CPT/HCPCS: 71046

== ENCOUNTER 2019-05-19 13:49 | Emergency (ER) | payer MEDICARE ==
--- NOTE | 2019-05-19 14:57 | RAD ---
XR Chest Pa Lat STANDARD History: Cough Comparison: Chest radiograph May 09, 2019 Findings: Mild layering right pleural effusion, similar. Heart size is enlarged. Mild pulmonary venou s congestion. Prosthetic aortic valve. Lower thoracic spine compression deformity. Impression: Similar examination the chest with mild cardiomegaly, edema and layering right pleural ef fusion.
== END 2019-05-19 15:48 | disposition home or self-care (01) ==
LOC: SCSER 13:49
DX: R05 Cough (principal); E78.5 Hyperlipidemia, unspecified; I10 Essential (primary) hypertension; E03.9 Hypothyroidism, unspecified; Z79.899 Other long term (current) drug therapy
CPT/HCPCS: 71046

== ENCOUNTER 2020-01-14 11:18 | Observation (INO) | payer MEDICARE ==
[2020-01-14 12:05] LABS: #Eosinphils 0.1 thou/uL (0.0-0.7); #Lymphocytes 0.6 thou/uL (1.20-3.40); #Monocytes 0.7 thou/uL (0.11-0.59); #Neutrophils 6.5 thou/uL (1.40-6.50); %Basophils 0.3 % (0.0-1.0); %Eosinophils 1.1 % (0.0-10.0); %Lymphocytes 7.7 % (21.0-51.0); %Monocytes 8.4 % (0.0-10.0); %Neutrophils 82.5 % (42.0-75.0); Hemoglobin 12.6 g/dL (14.0-18.0); Mean Corpuscular HGB CONC 32.3 g/dL (32.0-36.0); Mean Corpuscular Hemoglobin 33.5 pg (27.0-31.0); Mean Platelet Volume 8.9 fL (7.4-10.4); Platelet Count 174 thou/uL (130-400); RBC Distribution Width 13.6 % (11.5-14.5); Red Blood Cell (RBC) Count 3.76 mill/uL (4.70-6.10); White Blood Cell (WBC) Count 7.9 thou/uL (4.8-10.8)
--- NOTE | 2020-01-14 12:18 | RAD ---
EXAM: CHEST ONE VIEW HISTORY: Weakness COMPARISON: 05/19/2019 FINDINGS: Postsurgical changes related to median sternotomy and cardiac valve replacement are again noted. The heart remains enlarged. Pulmonary vasculature is within normal limits, but there is prominence of the central hilar vascular structures. Pleural and parenchymal changes are seen at the right lung bas e likely due to right pleural effusion and atelectasis similar to prior exam. There is mild increase in interstitial densities in the left mid lung zone. Prominent bilateral glenohumeral osteoa rthropathy is present. No other interval change. IMPRESSION: 1. Persistent right pleural effusion and atelectasis. 2. Hazy density as well as mild increase in interstitial densities left midlung zone. This may be art ifactual, but developing pneumonia cannot be excluded. Short interval follow-up exam is recommended. 3. Cardiomegaly.
[2020-01-14 12:28] LABS: ALT (SGPT) 23 U/L (8-55); AST (SGOT) 36 U/L (5-34); Albumin 4.2 g/dL (3.4-4.8); Alkaline Phosphatase 260 U/L (40-110); Anion Gap 13 mmol/L (10-20); BUN (Urea Nitrogen) 18 mg/dL (8.4-25.7); Bilirubin, Total 0.9 mg/dL (0.2-1.2); Calc. Creatinine Clearance 0 mL/min (70-130); Calcium 8.7 mg/dL (7.8-10.44); Carbon Dioxide 25 mmol/L (23-31); Chloride 103 mmol/L (98-107); Estimated GFR-MDRD 66; Globulin 2.9 g/dL (2.4-3.5); Glucose 107 mg/dL (83-110); Lipase 12 U/L (8-78); Protein, Total 7.1 g/dL (5.8-8.1); Sodium 136 mmol/L (136-145)
[2020-01-14 12:34] LABS: Bacteria/HPF None Seen HPF (None Seen); Bilirubin Negative (Negative); Blood, Urine Negative (Negative); Clarity Clear (Clear); Glucose, Urine (Dipstick) Normal (Negative); Leukocyte Negative Leu/uL (Negative); Nitrite Negative (Negative); Protein, Urine (Dipstick) 100 mg/dL (Neg-Trace); RBC/HPF 0-3 HPF (0-3); Squamous Epithelial 0-3 HPF (0-3); WBC/HPF 0-3 HPF (0-3)
[2020-01-14] MEDS ORDERED: Acetaminophen 325 MG TAB PO PRN (12:56)
[2020-01-14] MEDS ORDERED: Senokot S 8.6-50 MG TAB PO PRN (12:56)
[2020-01-14 13:33] LABS: Base Excess-Venous -0.8 mmol/L (-2.0 to 3.0); Bicarbonate (HCO3v) 25.2 mmol/L (22.0-28.0); CO2 Tension (PvCO2) 45.6 mmHg (40.0-50.0); Calcium, Ionized 0.99 mmol/L (See Comments:); Chloride 103 mmol/L (98-107); Hemoglobin - Calc 13.9 g/dL (14.0-18.0); Potassium 4.7 mmol/L (3.5-5.1); Sodium 137 mmol/L (138-145); T. Carbon Dioxide 26.6 mmol/L (22.0-28.0); vO2 Saturation-calc 66.8 % (60.0-85.0)
--- NOTE | 2020-01-14 16:08 | CT ---
Exam: Chest CT scan without IV contrast: HISTORY: Weakness history of congestive heart failure COMPARISON: 01/04/2019 FINDINGS: Marked cardiomegaly. Moderate left pleural effusion increasing from the prior study. Smaller right pl eural effusion decreasing from the prior study. Evidence for ascites. 3 vessel coronary artery calcific disease. Atelectasis in the right lower lobe with minimal changes in the left lower lobe. Se veral small mediastinal lymph nodes including an AP window node measuring 8.9 x 2.0 cm in size minimally increasing from the prior study. Minimal bilateral hilar nodularity evidence for some adeno gustavo. Paratracheal and pretracheal nodes are borderline in size with little change from the prior study. Atherosclerotic ectatic changes of the ascending aorta. Stable fatty mass adjacent to the righ t heart border. Borderline enlarged nodes in the gastrohepatic ligament region is slightly larger than on prior study. Minimally enlarged adrenal glands, slightly larger on the left side and also sli ghtly larger than on prior study. IMPRESSION: Small right pleural effusion decreasing from prior study. Minimally larger left pleural effusion incr easing prior study. Right lower lobe atelectasis. Minimal ascites. Some mediastinal and gastrohepatic lymph nodes which appears solid larger than prior study. Marked cardiomegaly. Numerous other findings as above.
[2020-01-14 16:24] VITALS: BMI 24.3
[2020-01-14] MEDS ORDERED: Phenytoin 50 MG Chewable Tablet PO SCH (21:00)
--- NOTE | 2020-01-14 21:18 | HP ---
CHIEF COMPLAINT: Generalized weakness. HISTORY OF PRESENT ILLNESS: The patient is a very pleasant 89-year-old male who has a history of CAD and also aortic stenosis status post surgery, who presents to the hospital with generalized weakness x1 day. The patient stated that he was feeling his usual self; however, when he went to yazidism, all of a sudden felt very weak and when he tried to get up and walk, he felt very weak to the point that he was unable to ambulate anymore and he required a wheelchair. The patient normally ambulates with a stick. He denies any fevers or chills at home. He felt cold in the ER. He states that he has been having a little cough, but has not been producing anything. Denies any recent sick contacts. He denies any palpitations, chest pain, or shortness of breath. He has been compliant with his medications. PAST MEDICAL HISTORY: He has a history of past medical history of chronic AFib; hypertension; history of seizures; hyperlipidemia; CKD; pulmonary hypertension; obstructive sleep apnea, he uses a CPAP; CAD; hypothyroidism; and history of gout. PAST SURGICAL HISTORY: 1. He has had an aortic valve replacement with bovine valve. He has had a CAD with bypass x1 with maze procedure. 2. Lumbar laminectomy. 3. Multiple cardiac catheterizations. 4. Tonsillectomy. 5. Cholecystectomy. 6. Left thumb amputation. 7. ERCP with colonoscopy. ALLERGIES: HE HAS ALLERGIES TO PENICILLIN. MEDICATIONS: He currently does not recall all of them; however, 1. He takes aspirin 81 mg daily. 2. He does take levothyroxine 100 mcg daily. 3. Toprol-XL 25 mg twice a day. FAMILY HISTORY: Positive for heart disease. 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 He is a [place] . Remote tobacco use, greater than 50 years. He lives in [place], [place]. No alcohol use or drug use. REVIEW OF SYSTEMS: All negative except for the ones mentioned above in the HPI. CODE STATUS: He is full code. PHYSICAL EXAMINATION: VITAL SIGNS: Are as of the following; temperature of 97.6, 28, 82, 116/69, 96% on room air. GENERAL: He is awake, alert, and oriented x3. Does not appear in distress. CV: S1, S2 present. No murmurs, rubs, or gallops. LUNGS: Decreased breath sounds to right lower lung bases, otherwise clear. ABDOMEN: Soft and nontender. Bowel sounds are present x2. EXTREMITIES: Mild lower extremity edema. Pedal pulses are present x2. No cuts, lesions, or bruises noted to the lower extremity. NEUROVASCULAR: No focal deficits noted. LABORATORY DATA: His chest x-ray indicated some haziness, mild increased interstitial density to the left mid lung zone, which may be artifactual, possible pneumonia and cardiomegaly and persistent right pleural effusion with atelectasis. WBCs of 7.9, hemoglobin of 12.6, hematocrit of 39.0. His platelets were 174. His chemistry; sodium of 137, potassium of 4.7, BUN of 18, creatinine of 1.06. His troponin x1 was 0.020. His BNP was 156. His TSH was 5.4. No lactic acid was checked. ASSESSMENT AND PLAN: The patient is an 89-year-old male who presents to the hospital with generalized weakness. 1. Generalized weakness, could be possible infectious since his onset was so sudden; however, could be some cardiac etiology also. He did have a urine which did not really indicate any acute abnormalities. I will go ahead and get a CT chest without contrast to see if there is any pneumonia. His influenza was negative. His urine was normal. Blood cultures were drawn. He is currently on empiric Levaquin. We will also get an echocardiogram since his last echocardiogram was back in 2018. We will put him on tele to monitor him and see if there is any cardiac reasons that could be causing him to have generalized weakness. His TSH is mildly elevated at 5. I do not believe that will be causing him to have significant weakness and so sudden onset. 2. History of coronary artery disease. We will continue his home medications. 3. Diastolic heart failure. Currently compensated. We will continue to monitor. 4. Sleep apnea. We will continue with his CPAP machine. 5. History of atrial fibrillation. He is currently in atrial fibrillation. He is not on any anticoagulation since he has been having some hemoptysis, so his primary care doctor put him only on aspirin and he is only on aspirin for that. Job ID: [id number]
[2020-01-14] MEDS: Cyanocobalamin (Vitamin B-12) 1,000 MCG TAB PO SCH (21:51)
[2020-01-14] MEDS: Atorvastatin Calcium 20 MG TAB PO SCH (21:51)
[2020-01-15 05:03] LABS: #Eosinphils 0.2 thou/uL (0.0-0.7); #Monocytes 0.7 thou/uL (0.11-0.59); #Neutrophils 5.1 thou/uL (1.40-6.50); %Basophils 0.3 % (0.0-1.0); %Eosinophils 2.8 % (0.0-10.0); %Lymphocytes 14.1 % (21.0-51.0); %Neutrophils 72.8 % (42.0-75.0); Hemoglobin 10.6 g/dL (14.0-18.0); Mean Corpuscular HGB CONC 32.8 g/dL (32.0-36.0); Mean Corpuscular Hemoglobin 33.8 pg (27.0-31.0); Mean Platelet Volume 9.2 fL (7.4-10.4); Platelet Count 162 thou/uL (130-400); RBC Distribution Width 13.4 % (11.5-14.5); Red Blood Cell (RBC) Count 3.14 mill/uL (4.70-6.10)
[2020-01-15 05:24] LABS: Anion Gap 11 mmol/L (10-20); BUN (Urea Nitrogen) 19 mg/dL (8.4-25.7); Calc. Creatinine Clearance 63 mL/min (70-130); Calcium 8.4 mg/dL (7.8-10.44); Carbon Dioxide 26 mmol/L (23-31); Chloride 102 mmol/L (98-107); Estimated GFR-MDRD 75; Glucose 92 mg/dL (83-110); Potassium 4.3 mmol/L (3.5-5.1); Sodium 135 mmol/L (136-145)
[2020-01-15] MEDS ORDERED: Levothyroxine Sodium 100 MCG TAB PO SCH (06:00)
[2020-01-15] MEDS ORDERED: Phenytoin 50 MG Chewable Tablet PO SCH (09:00)
[2020-01-15] MEDS: Allopurinol 100 MG TAB PO SCH (09:34)
[2020-01-15] MEDS: Aspirin 81 mg Enteric Coated Tablet PO SCH (09:34)
[2020-01-15] MEDS: Enoxaparin Sodium 40 MG/0.4 ML SYRINGE SC SCH (09:35)
[2020-01-15] MEDS ORDERED: Metoprolol Tartrate 25 MG TAB PO SCH (10:00)
[2020-01-15] MEDS: Saccharomyces boulardii 250 MG CAP PO SCH (10:54)
--- NOTE | 2020-01-15 16:36 | PDOC.HOSPP ---
- Subjective Encounter Date: 01/15/20 Encounter Time: 09:30 Subjective: no overnight events. This morning, feels better overall, states that feels stronger and can walk but still not at baseline. Has no other complaints. - Objective Vital Signs & Weight: Vital Signs (12 hours) Temp Pulse Resp BP BP BP BP 01/15/20 15:28 98.3 F 91 16 01/15/20 13:45 111 H 01/15/20 13:40 109 H 125/61 01/15/20 13:35 95 122/60 01/15/20 11:48 98.3 F 104 H 16 121/57 L 01/15/20 08:57 147/68 H 158/73 H 01/15/20 07:48 98.0 F 116 H 16 139/70 01/15/20 04:42 97.9 F 101 H 20 149/63 H BP Pulse Ox Pulse Ox 01/15/20 15:28 126/57 L 96 01/15/20 13:45 135/70 01/15/20 13:40 01/15/20 13:35 01/15/20 11:48 96 01/15/20 08:57 98 01/15/20 07:48 93 L 01/15/20 04:42 96 Weight Weight 179 lb I&O: 01/14/20 01/15/20 01/16/20 06:59 06:59 06:59 Intake Total 840 630 Output Total 375 100 Balance 465 530 Result Diagrams: 01/15/20 04:34 01/15/20 04:34 Hospitalist ROS - Review of Systems Constitutional: denies: fever, chills, sweats, weakness, malaise, other Respiratory: reports: SOB with excertion. denies: cough, dry, shortness of breath, hemoptysis, pleuritic pain, sputum, wheezing, other Cardiovascular: denies: chest pain, palpitations, orthopnea, paroxysmal noc. dyspnea, edema, light headedness, other Gastrointestinal: denies: nausea, vomiting, abdominal pain, diarrhea, constipation, melena, hematochezia, other Genitourinary: denies: dysuria, frequency, incontinence, hematuria Musculoskeletal: denies: neck pain, shoulder pain Skin: denies: rash Neurological: reports: weakness. denies: numbness, incoordination, change in speech, confusion - Medication Medications: Active Medications Generic Name Dose Route Start Last Admin Trade Name Afia PRN Reason Stop Dose Admin Allopurinol 200 mg 01/15/20 09:00 01/15/20 09:34 Zyloprim PO 200 mg DAILY SEAN Administration Aspirin 81 mg 01/15/20 09:00 01/15/20 09:34 Ecotrin PO 81 mg DAILY SEAN Administration Atorvastatin Calcium 20 mg 01/14/20 21:00 01/14/20 21:51 Lipitor PO 20 mg HS SEAN Administration Cyanocobalamin 1,000 mcg 01/14/20 21:00 01/14/20 21:51 Vitamin B-12 PO 1,000 mcg HS SEAN Administration Enoxaparin Sodium 40 mg 01/15/20 09:00 01/15/20 09:35 Lovenox SC 40 mg 0900 SEAN Administration Levofloxacin 750 mg/ Device 150 mls @ 100 mls/hr 01/15/20 12:00 01/15/20 12: 06 IVPB 150 mls Q24HR SEAN Administration Levothyroxine Sodium 100 mcg 01/15/20 06:00 01/15/20 04:42 Synthroid PO 100 mcg 0600 SEAN Administration Saccharomyces Boulardii 250 mg 01/15/20 09:00 01/15/20 10:54 Florastor PO 250 mg DAILY SEAN Administration - Exam General Appearance: NAD, awake alert Eye: PERRL, anicteric sclera Neck: no JVD Heart: no gallops, no rubs, irregular Heart - other findings: tachycardic ~ 100-110s Respiratory: no wheezes, no rales, no ronchi Respiratory - other findings: right: reduced in lower martin left: inspiratory crackles lower and mid Gastrointestinal: soft, non-tender, non-distended, normal bowel sounds Extremities: 1+ LE edema Neurological: cranial nerve grossly intact Musculoskeletal: normal tone, normal strength, no muscle wasting. negative: generalized weakness, diffuse muscle atrophy Psychiatric: normal affect, normal behavior, A&O x 3 Hosp A/P - Plan #community acquired pneumonia -patient endorses increased cough, improving after being started on levofloxacin -will continue levoflox #generalized weakness -appears to be chronic / episodic in natuer -most likely etiologies: hypothyroidism (levothyroxine increased during this stay due to elevated TSH), anemia (no recent HgB, macrocytosis), polypharmacy ( phenytoin, beta brina, -cardiac (unlikely considering workup), infectious (negative so far, may be due to CAP) #pleural effusion -relatively stable based on CT scan -01/09: no LDH though based on protein levels, likely transudative -possible etiologies : atelectaiss, hypothyroidism, CHF (though most recent echo in 2018 inconsistent with CHF) #atrial fibrillation restarted beta brina due to increasing heart rate #hypothyroidism -TSH elevated; increased dosage of levothyroxine during this inpatient stay
[2020-01-15 17:44] LABS: Hemoglobin 12.1 g/dL (14.0-18.0)
[2020-01-15 18:30] LABS: Hep C IgG Ab Non-Reactive (NonReactive)
[2020-01-15 18:36] LABS: Vitamin B12 1335 pg/mL (211-911)
[2020-01-15] MEDS: Spironolactone 100 MG TAB PO SCH (20:18)
[2020-01-15] MEDS: Atorvastatin Calcium 20 MG TAB PO SCH (20:18)
[2020-01-15] MEDS: Cyanocobalamin (Vitamin B-12) 1,000 MCG TAB PO SCH (20:19)
[2020-01-15] MEDS: Metoprolol Tartrate 25 MG TAB PO SCH (20:19)
[2020-01-16 04:54] LABS: #Eosinphils 0.1 thou/uL (0.0-0.7); #Lymphocytes 1.1 thou/uL (1.20-3.40); #Monocytes 0.7 thou/uL (0.11-0.59); #Neutrophils 4.2 thou/uL (1.40-6.50); %Basophils 0.3 % (0.0-1.0); %Eosinophils 2.1 % (0.0-10.0); %Lymphocytes 17.4 % (21.0-51.0); %Monocytes 10.7 % (0.0-10.0); %Neutrophils 69.5 % (42.0-75.0); Hemoglobin 10.3 g/dL (14.0-18.0); Mean Corpuscular HGB CONC 31.8 g/dL (32.0-36.0); Mean Corpuscular Hemoglobin 32.5 pg (27.0-31.0); Mean Platelet Volume 8.7 fL (7.4-10.4); Platelet Count 154 thou/uL (130-400); RBC Distribution Width 13.4 % (11.5-14.5); Red Blood Cell (RBC) Count 3.17 mill/uL (4.70-6.10); White Blood Cell (WBC) Count 6.1 thou/uL (4.8-10.8)
[2020-01-16 05:16] LABS: Anion Gap 11 mmol/L (10-20); BUN (Urea Nitrogen) 20 mg/dL (8.4-25.7); Calc. Creatinine Clearance 62 mL/min (70-130); Calcium 8.4 mg/dL (7.8-10.44); Carbon Dioxide 25 mmol/L (23-31); Chloride 103 mmol/L (98-107); Estimated GFR-MDRD 73; Glucose 83 mg/dL (83-110); Magnesium 1.9 mg/dL (1.6-2.6); Potassium 4.3 mmol/L (3.5-5.1); Sodium 135 mmol/L (136-145)
[2020-01-16] MEDS ORDERED: Levothyroxine Sodium 125 MCG TAB PO SCH ×3 (06:00)
[2020-01-16] MEDS ORDERED: Levothyroxine Sodium 25 MCG TAB PO SCH (06:00)
[2020-01-16] MEDS ORDERED: Levothyroxine Sodium 112 MCG TAB PO SCH (06:00)
[2020-01-16] MEDS: Spironolactone 100 MG TAB PO SCH (08:18)
[2020-01-16] MEDS: Saccharomyces boulardii 250 MG CAP PO SCH (08:18)
[2020-01-16] MEDS: Metoprolol Tartrate 25 MG TAB PO SCH (08:19)
[2020-01-16] MEDS: Aspirin 81 mg Enteric Coated Tablet PO SCH (08:19)
[2020-01-16] MEDS: Enoxaparin Sodium 40 MG/0.4 ML SYRINGE SC SCH (08:19)
[2020-01-16] MEDS: Allopurinol 100 MG TAB PO SCH (08:19)
[2020-01-16 12:18] VITALS: BP 111/56; TEMP 97.4
--- NOTE | 2020-01-16 12:34 | PDOC.HOSPP ---
- Subjective Encounter Date: 01/16/20 Encounter Time: 12:32 Subjective: Mr. Giles says he is feeling a little better. He does not have any new complaints, but admits to feeling weak very now and then. - Objective Vital Signs & Weight: Vital Signs (12 hours) Temp Pulse Resp BP BP Pulse Ox 01/16/20 11:26 97.4 F L 90 16 111/56 L 95 01/16/20 08:10 96 18 136/62 95 01/16/20 03:25 99.9 F H 91 18 138/66 99 Weight Weight 181 lb 4.8 oz I&O: 01/15/20 01/16/20 01/17/20 06:59 06:59 06:59 Intake Total 840 1590 Output Total 375 800 Balance 465 790 Result Diagrams: 01/16/20 04:31 01/16/20 04:31 Hospitalist ROS - Medication Medications: Active Medications Generic Name Dose Route Start Last Admin Trade Name Freq PRN Reason Stop Dose Admin Allopurinol 200 mg 01/15/20 09:00 01/16/20 08:19 Zyloprim PO 200 mg DAILY SEAN Administration Aspirin 81 mg 01/15/20 09:00 01/16/20 08:19 Ecotrin PO 81 mg DAILY SEAN Administration Atorvastatin Calcium 20 mg 01/14/20 21:00 01/15/20 20:18 Lipitor PO 20 mg HS SEAN Administration Cyanocobalamin 1,000 mcg 01/14/20 21:00 01/15/20 20:19 Vitamin B-12 PO Not Given HS SEAN Enoxaparin Sodium 40 mg 01/15/20 09:00 01/16/20 08:19 Lovenox SC 40 mg 0900 SEAN Administration Levofloxacin 750 mg/ Device 150 mls @ 100 mls/hr 01/15/20 12:00 01/15/20 12: 06 IVPB 150 mls Q24HR SEAN Administration Levothyroxine Sodium 125 mcg 01/16/20 06:00 01/16/20 05:39 Synthroid PO 125 mcg 0600 SEAN Administration Metoprolol Tartrate 25 mg 01/15/20 21:00 01/16/20 08:19 Lopressor PO 25 mg BID SEAN Administration Phenytoin Sodium 200 mg 01/15/20 21:00 01/15/20 20:19 Dilantin Er PO 200 mg HS SEAN Administration Phenytoin Sodium 300 mg 01/16/20 09:00 01/16/20 08:18 Dilantin Er PO 300 mg DAILY SEAN Administration Saccharomyces Boulardii 250 mg 01/15/20 09:00 01/16/20 08:18 Florastor PO 250 mg DAILY SEAN Administration Spironolactone 50 mg 01/15/20 21:00 01/16/20 08:18 Aldactone PO 50 mg BID SEAN Administration - Exam Eye: PERRL Heart: RRR, no murmur, no gallops, no rubs, normal peripheral pulses Respiratory: CTAB (+ rales at the right base) Gastrointestinal: soft, non-tender, non-distended, normal bowel sounds, no palpable masses, no hepatomegaly Extremities: no cyanosis, no edema Hosp A/P (1) CAP (community acquired pneumonia) Code(s): J18.9 - PNEUMONIA, UNSPECIFIED ORGANISM Status: Acute (2) Generalized weakness Code(s): R53.1 - WEAKNESS Status: Acute (3) Afib Code(s): I48.91 - UNSPECIFIED ATRIAL FIBRILLATION Status: Chronic (4) Hypothyroidism Code(s): E03.9 - HYPOTHYROIDISM, UNSPECIFIED Status: Chronic - Plan * Pneumonia- will continue Levaquin- and will do the 3 day dosing on the 750mg Levaquin, therefore he only needs one more pill * AFIB- permanent * Stable for discharge home
--- NOTE | 2020-01-17 04:24 | DIS ---
DATE OF ADMISSION: 01/14/2020 DATE OF DISCHARGE: 01/16/2020 PRIMARY CARE PHYSICIAN: Dr. Jacobo Lai. DISCHARGE DISPOSITION: Home. DISCHARGE DIAGNOSES: 1. Community-acquired pneumonia. 2. Permanent atrial fibrillation. 3. Generalized weakness, likely secondary to #1. 4. History of aortic valve replacement. 5. Coronary artery disease. 6. Hypertension. DISCHARGE MEDICATIONS: Include: 1. Levofloxacin 750 mg p.o. daily. 2. Tylenol 500 mg q.4 as needed. 3. Aldactone 50 mg twice daily. 4. Dilantin 200 mg at bedtime and 300 daily. 5. Metoprolol tartrate 25 mg twice a day. 6. Levothyroxine 125 mcg p.o. daily. 7. Furosemide 40 mg daily. 8. Atorvastatin 80 mg at bedtime. 9. Aspirin 81 mg daily. 10. Allopurinol 200 mg daily. IMAGING DURING THE HOSPITAL STAY: 1. The patient had a CT scan of the chest, which noted a small right pleural effusion, which was decreasing from a prior study. There was a larger left pleural effusion. Some right lower lobe atelectasis. Some mediastinal and gastrohepatic lymph nodes. 2. The patient had an echocardiogram demonstrating an ejection fraction estimated at 60% to 65%. Left atrium was moderately dilated. There was severe tricuspid regurgitation. CODE STATUS: Full code. ALLERGIES: TO PENICILLIN. HOSPITAL COURSE: Mr. Giles is a pleasant 89-year-old gentleman, who was admitted to the hospital after he had fairly sudden onset of severe weakness. The full details of which are outlined in the history and physical by Dr. Barr. He was placed in the hospital and a CT scan was obtained due to concern for possible pneumonia, which was not seen on chest x-ray. He was started on antibiotics for presumed pneumonia. He was also noted that he was in atrial fibrillation, which from discussing with the patient and the patient's family that this is a situation he had permanent atrial fibrillation, in which his atmospheric chemist was not interested in trying to convert him to sinus, he had had several cardioversions in the past, I suspect that some of his weakness is related to the permanent atrial fibrillation. He was feeling improved by the time of discharge, although not completely back to his baseline. The patient is subsequently being discharged home with a 3-day regimen of the Levaquin 750 mg dose as to not hopefully as to prevent antibiotic-associated diarrhea. He was also instructed to take a probiotic. He has been instructed to follow up with his primary care physician in approximately 1 week. Job ID: [id number]
[2020-01-18 14:13] LABS: Hep B Surface AG-Rflx Sendout Negative (Negative); Hepatitis B Core Total Negative (Negative); Hepatitis B Surface AB-Sendout Non Reactive (.)
== END 2020-01-16 15:23 | disposition home or self-care (01) ==
LOC: ERS 11:18 → ERHOLD 13:13 → 2SW 16:14
PROVIDERS: ADMIT Internal Medicine; ATTEND Internal Medicine
DX: J18.9 Pneumonia, unspecified organism (principal); I48.21 Permanent atrial fibrillation; R53.1 Weakness; I25.10 Atherosclerotic heart disease of native coronary artery without angina pectoris; I35.0 Nonrheumatic aortic (valve) stenosis; I13.0 Hypertensive heart and chronic kidney disease with heart failure and stage 1 through stage 4 chronic kidney disease, or unspecified chronic kidney disease; N18.9 Chronic kidney disease, unspecified; I50.30 Unspecified diastolic (congestive) heart failure; E78.5 Hyperlipidemia, unspecified; G47.33 Obstructive sleep apnea (adult) (pediatric); E03.9 Hypothyroidism, unspecified; M10.9 Gout, unspecified; F03.90 Unspecified dementia, unspecified severity, without behavioral disturbance, psychotic disturbance, mood disturbance, and anxiety; J90 Pleural effusion, not elsewhere classified; R18.8 Other ascites; Z87.891 Personal history of nicotine dependence; Z79.82 Long term (current) use of aspirin; Z79.899 Other long term (current) drug therapy; Z88.0 Allergy status to penicillin; Z99.89 Dependence on other enabling machines and devices; Z95.1 Presence of aortocoronary bypass graft; Z95.3 Presence of xenogenic heart valve
CPT/HCPCS: 36415; 71045; 71250; 80048; 80053; 81003; 81015; 82330; 82607; 82746; 82803; 83690; 83735; 83880; 84145; 84443; 84484; 85025; 86704; 86705; 86706; 86707; 86803; 87040; 87340; 87350; 87804; 93005; 93306; 94660; 96365; 96366; 96372; 96376; G0378; J1650; J1956

== ENCOUNTER 2020-01-28 16:06 | Inpatient (IN) | payer MEDICARE ==
[2020-01-28 16:53] LABS: #Eosinphils 0.2 thou/uL (0.0-0.7); #Lymphocytes 0.7 thou/uL (1.20-3.40); #Monocytes 0.4 thou/uL (0.11-0.59); #Neutrophils 5.2 thou/uL (1.40-6.50); %Basophils 0.3 % (0.0-1.0); %Eosinophils 2.8 % (0.0-10.0); %Lymphocytes 11.2 % (21.0-51.0); %Monocytes 6.4 % (0.0-10.0); %Neutrophils 79.4 % (42.0-75.0); Hemoglobin 11.3 g/dL (14.0-18.0); Mean Corpuscular HGB CONC 32.8 g/dL (32.0-36.0); Mean Platelet Volume 8.7 fL (7.4-10.4); Platelet Count 206 thou/uL (130-400); RBC Distribution Width 13.5 % (11.5-14.5); Red Blood Cell (RBC) Count 3.42 mill/uL (4.70-6.10); White Blood Cell (WBC) Count 6.5 thou/uL (4.8-10.8)
[2020-01-28 17:14] LABS: ALT (SGPT) 17 U/L (8-55); AST (SGOT) 29 U/L (5-34); Albumin 3.8 g/dL (3.4-4.8); Alkaline Phosphatase 227 U/L (40-110); Anion Gap 11 mmol/L (10-20); BUN (Urea Nitrogen) 18 mg/dL (8.4-25.7); Bilirubin, Total 0.7 mg/dL (0.2-1.2); Calc. Creatinine Clearance 0 mL/min (70-130); Calcium 8.5 mg/dL (7.8-10.44); Carbon Dioxide 27 mmol/L (23-31); Chloride 103 mmol/L (98-107); Estimated GFR-MDRD 71; Globulin 2.9 g/dL (2.4-3.5); Glucose 133 mg/dL (83-110); Potassium 4.4 mmol/L (3.5-5.1); Protein, Total 6.7 g/dL (5.8-8.1); Sodium 137 mmol/L (136-145)
--- NOTE | 2020-01-28 18:18 | RAD ---
Chest AP view INDICATION: Dyspnea with history of atrial fibrillation and CHF COMPARISON: January 22, 2020 FINDINGS: Lungs: Bibasilar opacities suspicious for edema are stable. Cardiac silhouette: Moderate cardiomegaly is stable. Aortic valvular prosthesis is similar appearing . Pulmonary vasculature: There is moderate pulmonary vascular congestion Pleural spaces: There are small bilateral pleural effusions, right greater than left which are stabl e Upper abdomen: No abnormality seen. Osseous structures: No acute osseous abnormality. There is scattered degenerative and osteoarthritic change present. Additional findings: None. IMPRESSION: Stable findings of [id number] CHF
[2020-01-28] MEDS ORDERED: Furosemide 20 MG/2 ML VIAL ONE ×2 (20:06)
[2020-01-28 21:19] LABS: Troponin I 0.028 ng/mL (< 0.028)
[2020-01-28] MEDS ORDERED: Acetaminophen 325 MG TAB PO PRN (21:49)
[2020-01-28] MEDS ORDERED: Atorvastatin Calcium 40 MG TAB PO SCH (22:15)
[2020-01-28 22:50] VITALS: BMI 24.6
--- NOTE | 2020-01-28 22:50 | HP ---
PRIMARY CARE PROVIDER: Dr. Lai. CHIEF COMPLAINT: Difficulty breathing. HISTORY OF PRESENT ILLNESS: This is an 89-year-old male with history of chronic atrial fibrillation, on aspirin therapy; dyslipidemia; hypertension; seizures; gout; hypothyroidism; diastolic heart failure, who comes in with difficulty breathing. Of note, the patient was hospitalized here from January 14 through January 16 due to community-acquired pneumonia in conjunction with generalized weakness. He reports going home and otherwise feeling well up until last night. He states he spent the day working outside, and was feeling good. Last night, he "had a terrible night," and that he could not breathe. He states that he is easily becoming short of breath, required getting up and moving around overnight. He denies any prior history of a similar symptoms and denies any chest pain. He denies any precipitating or relieving factors. He does note an increase in his abdominal girth as well as swelling in his ankles. He also notes eating more chips recently. In the emergency room, the patient's presentation consistent with heart failure , he received Lasix 40 mg IV, prior to this, he received 500 mL IV of normal saline, and hospitalist called for admission. PAST MEDICAL HISTORY: 1. Chronic atrial fibrillation. 2. Hypertension. 3. Dyslipidemia. 4. Heart failure. 5. Hypothyroidism. 6. Obstructive sleep apnea, on CPAP. 7. Coronary artery disease. 8. Gout. PAST SURGICAL HISTORY: 1. Aortic valve replacement with a bovine valve. 2. Lumbar laminectomy. 3. CABG. 4. Tonsillectomy. 5. Cholecystectomy. 6. Left thumb traumatic amputation. ALLERGIES: PENICILLIN. MEDICATIONS: Reconciled with the list that he brought in, 1. Metoprolol tartrate 50 mg tablet 1/2 tablet b.i.d. 2. Levothyroxine 125 mcg daily. 3. Furosemide 40 mg daily. 4. Spironolactone 25 mg two tablets b.i.d. 5. Aspirin 325 mg daily. 6. Atorvastatin 80 mg at bedtime. 7. Cholestyramine 4 g-5 g b.i.d. 8. Phenytoin 300 mg in the morning, 200 mg in the evening. 9. Allopurinol 100 mg two tablets once daily. 10. Vitamin D 2000 units a day. 11. Vitamin B complex once daily. SOCIAL HISTORY: The patient is , his is his surrogate decision maker, and he is a full code. He denies alcohol or tobacco use. REVIEW OF SYSTEMS: Positive for abdominal swelling and ankle swelling. Negative for chest pain, fevers, chills, nausea, vomiting, abdominal pain, or weakness. All remaining review of systems are reviewed and negative. PHYSICAL EXAMINATION: VITAL SIGNS: Blood pressure 128/66, pulse 78, respirations 20, temperature 97.9 , saturations 96% on room air. GENERAL: Awake, alert, responsive, in no apparent distress. HEENT: Pupils are equal and round. Oral mucosa is pink and dry. NECK: Supple and nontender. LYMPHATICS: No palpable cervical or anterior cervical lymphadenopathy. LUNGS: Bibasilar rales that are faint, good air movement. No audible wheezing or rhonchi. HEART: Normal S1, S2 with a 2/6 systolic ejection murmur throughout. ABDOMEN: Soft. Present bowel sounds. Nontender, nondistended. EXTREMITIES: Have 1+ pitting edema bilateral. SKIN: No visible rashes. NEUROLOGIC: No focal deficits. PSYCHIATRIC: Appears euthymic. VASCULAR: 2+ radial pulses. LABORATORY DATA: Reviewed. CBC; 6.5, 11.3, 34.5, 206 with 79% neutrophils. Renal panel; 137, 4.4, 103, 27, 18, 1.0, 133. LFTs normal except alkaline phosphatase 227, which is slightly high. Troponin 0.028 and 0.024. BNP 224. TSH checked on January 14 was 5.46 with a free T4 of 0.87. Chest x-ray is personally reviewed, which shows stable findings of mild to moderate CHF, moderate cardiomegaly, small bilateral pleural effusions right greater than left. EKG shows left axis deviation, prolonged QT interval with a QT corrected of 481 , and atrial fibrillation. Echocardiogram report reviewed from January 15, 2020, EF 60% to 65%, severe tricuspid regurgitation, moderate mitral regurgitation, and mild aortic stenosis. IMPRESSION: 1. Acute decompensated diastolic heart failure. 2. Coronary artery disease. 3. Hypertension. 4. Dyslipidemia. 5. Prolonged QT interval. 6. Gout. 7. Hypothyroidism, unknown control. 8. Seizure disorder. 9. Obstructive Sleep Apnea. PLAN: 1. Observation status in the hospital, anticipate pt may only require 1 midnight for treatment. 2. Monitoring on telemetry. Obtain a third troponin, continue IV furosemide dosing twice daily. 3. Monitor renal function. 4. No indication to repeat echocardiogram as the last one was only a few weeks ago. 5. 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 Waite. 6. Continue his usual home medicines. Heart healthy, fluid restricted diet. 7. Deep venous thrombosis prophylaxis, pneumatic compression devices. 8. GI prophylaxis not indicated. 9. Code status is full. Surrogate decision maker is the patient's . 10. Anticipate that the patient responds to diuretics well, that he may be discharged after one midnight and therefore will be on observation status. Reviewed the plan of care with the patient, who demonstrates understanding, no questions or further needs at the end of evaluation. The patient is at high risk given age, comorbidities, and current presentation. Job ID: [id number] [facility]
[2020-01-28] MEDS ORDERED: Metoprolol Tartrate 25 MG TAB PO SCH (23:30)
[2020-01-29 00:01] LABS: Troponin I 0.016 ng/mL (< 0.028)
[2020-01-29 05:09] LABS: Anion Gap 9 mmol/L (10-20); BUN (Urea Nitrogen) 18 mg/dL (8.4-25.7); Calc. Creatinine Clearance 65 mL/min (70-130); Calcium 8.3 mg/dL (7.8-10.44); Carbon Dioxide 28 mmol/L (23-31); Chloride 104 mmol/L (98-107); Estimated GFR-MDRD 77; Glucose 88 mg/dL (83-110); Sodium 137 mmol/L (136-145)
[2020-01-29] MEDS: Levothyroxine Sodium 125 MCG TAB PO SCH (05:51)
[2020-01-29] MEDS: Furosemide 40 MG/4 ML VIAL SLOW IVP SCH ×2 (05:51→15:51)
[2020-01-29] MEDS: Allopurinol 100 MG TAB PO SCH (09:25)
[2020-01-29] MEDS: Spironolactone 25 MG TAB PO SCH ×2 (09:26→17:46)
[2020-01-29] MEDS: Metoprolol Tartrate 25 MG TAB PO SCH ×2 (09:26→20:30)
[2020-01-29] MEDS: Aspirin 325 MG TAB PO SCH (09:26)
--- NOTE | 2020-01-29 09:27 | PDOC.HOSPP ---
- Subjective Encounter Date: 01/29/20 Encounter Time: 09:25 Subjective: no cardioresp complaints - Objective Vital Signs & Weight: Vital Signs (12 hours) Temp Pulse Resp BP Pulse Ox 01/29/20 07:26 97.5 F L 78 18 135/61 100 01/29/20 03:29 97.9 F 81 18 142/63 H 95 01/28/20 23:49 98.4 F 81 16 134/65 95 01/28/20 22:31 97.9 F 94 20 142/66 H 92 L Weight Weight 181 lb 6.4 oz I&O: 01/28/20 01/29/20 01/30/20 06:59 06:59 06:59 Intake Total 484 Output Total 650 200 Balance -166 -200 Result Diagrams: 01/28/20 16:38 01/29/20 04:33 Hospitalist ROS - Medication Medications: Active Medications Generic Name Dose Route Start Last Admin Trade Name Freq PRN Reason Stop Dose Admin Furosemide 40 mg 01/29/20 06:00 01/29/20 05:51 Lasix SLOW IVP 40 mg 0600,1400 SEAN Administration Levothyroxine Sodium 125 mcg 01/29/20 06:00 01/29/20 05:51 Synthroid PO 125 mcg 0600 SEAN Administration - Exam General Appearance: awake alert Neck: no JVD Heart: irregular, II/IV Respiratory: CTAB Gastrointestinal: soft, normal bowel sounds Extremities: 1+ LE edema Hosp A/P (1) Chronic diastolic (congestive) heart failure Code(s): I50.32 - CHRONIC DIASTOLIC (CONGESTIVE) HEART FAILURE Status: Chronic (2) HTN (hypertension) Code(s): I10 - ESSENTIAL (PRIMARY) HYPERTENSION Status: Acute Qualifiers: Hypertension type: essential hypertension Qualified Code(s): I10 - Essential (primary) hypertension (3) CAD (coronary artery disease) Code(s): I25.10 - ATHSCL HEART DISEASE OF [place] CORONARY ARTERY W/O ANG PCTRS Status: Chronic Qualifiers: Coronary Disease-Associated Artery/Lesion type: [place] artery [place] vs. transplanted heart: [place] heart Associated angina: without angina Qualified Code(s): I25.10 - Atherosclerotic heart disease of [place] coronary artery without angina pectoris (4) Afib Code(s): I48.91 - UNSPECIFIED ATRIAL FIBRILLATION Status: Chronic Qualifiers: Atrial fibrillation type: unspecified Qualified Code(s): I48.91 - Unspecified atrial fibrillation (5) Hypothyroidism Code(s): E03.9 - HYPOTHYROIDISM, UNSPECIFIED Status: Chronic - Plan appears stable O2 sat RA 95% cont home meds
[2020-01-29 18:08] LABS: Iron 26 ug/dL (65-175); Iron Binding Capacity, Total 330 mcg/dL (261-462)
--- NOTE | 2020-01-29 19:20 | CON ---
DATE OF CONSULTATION: 01/29/2020 REQUESTING PHYSICIAN: Dr. Tomás Waite. REASON FOR CONSULTATION: Anemia in a patient with atrial fibrillation. HISTORY OF PRESENT ILLNESS: José Luis Giles is an 89-year-old gentleman with a history of atrial fibrillation, previously on warfarin, but now on full-strength aspirin for anticoagulation. He has a history of coronary artery disease status post CABG as well as a bovine aortic valve replacement. He has diastolic congestive heart failure. He was hospitalized briefly in December for treatment of community-acquired pneumonia. He was admitted back to the hospital yesterday with what he reports was acute shortness of breath the night prior to admission. He was evaluated and found to have elevated BNP as well as some evidence of pulmonary edema. He has been treated with diuretics, and today, he is doing much better. He has been evaluated by Dr. Waite. Evidently, transesophageal echocardiogram is planned for tomorrow. Labs demonstrate some chronic anemia. His hemoglobin is 11.3. Looking back, this has been his baseline this year, actually increased from prior evaluations in 2017. He was evaluated by my partner, Dr. Valadez in March 2019. He underwent an EGD at that time, which was normal. His last colonoscopy was in 2006, but Dr. Valadez and the patient decided against pursuing any colonoscopy, given normal iron studies, normal B12, normal folic acid levels at that time. The patient denies any overt bleeding from anywhere. He says his stools are often dark in color, but notably he has been taking oral iron. He has no symptoms of abdominal pain or diarrhea. REVIEW OF SYSTEMS: Full review of systems including constitutional, head, eyes, ears, nose, throat, GI, , cardiovascular, respiratory, musculoskeletal, neurologic systems is negative except as noted in the HPI. PAST MEDICAL HISTORY: Atrial fibrillation, coronary artery disease, coronary artery bypass graft, hypertension, hyperlipidemia, seizures, gout, hypothyroidism, diastolic congestive heart failure, obstructive sleep apnea on CPAP, aortic valve replacement with bovine valve, and cholecystectomy. ALLERGIES: PENICILLIN. OUTPATIENT MEDICATIONS: 1. Iron supplement. 2. Metoprolol. 3. Synthroid. 4. Lasix 40 mg daily. 5. Spironolactone 25 mg b.i.d. 6. Aspirin 325 mg daily. 7. Phenytoin. 8. Allopurinol. 9. Lipitor. 10. Cholestyramine. 11. Vitamin B complex. 12. Vitamin D. PHYSICAL EXAMINATION: VITAL SIGNS: Temperature 97.5, pulse 80, blood pressure 133/63, and 100% oxygen saturation on room air. GENERAL: An 89-year-old man, sitting up at the edge of the bed comfortably, in no distress. SKIN: No jaundice. No rashes were palpable. EYES: No scleral icterus. Extraocular movements intact. ENT: Mucous membranes moist. No oral lesions. LYMPH: No submandibular or supraclavicular lymphadenopathy. THYROID: Nontender to palpation. HEART: Regular rate and rhythm. LUNGS: Bibasilar crackles with no wheezing, no respiratory distress. ABDOMEN: Bowel sounds present. Soft, nontender to deep palpation throughout. EXTREMITIES: No peripheral edema. VESSELS: Radial pulses 2+ bilaterally. NEURO: Cranial nerves II through XII intact bilaterally. No focal deficits. LABORATORY STUDIES: Hemoglobin 11.3, WBC 6.5, platelets 206, and MCV is 101.0. BUN 18, creatinine 0.93, sodium 137, and potassium 4.0. BNP is 224.7. Troponin 0.016. LFTs show alkaline phosphatase 227, AST 29, ALT 17, total bilirubin 0.7, albumin 3.8. ASSESSMENT AND PLAN: Chronic anemia, macrocytic. I had a long discussion with the patient regarding this anemia. This is mild and stable, within his baseline over the past year. Dr. Valadez's evaluation in March 2019 showed normal iron studies, B12, and folic acid levels. Esophagogastroduodenoscopy was normal at that time. They had decided against pursuing any colonoscopy for further investigation. I would tend to agree with this approach, certainly there is no need for any inpatient endoscopic investigation. We will plan to have the patient follow up closely in clinic with Dr. Valadez for further discussion. GI will sign off, but please call back anytime with questions or concerns. Job ID: [id number]
--- NOTE | 2020-01-29 19:28 | CON ---
DATE OF CONSULTATION: HISTORY: José Luis Giles is an 89-year-old white male initially evaluated in June 1995. One month prior to that, he was playing golf in the hot sun and drinking a lot of beer while barbecuing. Afterwards, he had indigestion all night long and for the rest of the day. This was a pressure and burning in the lower part of his chest. He also had episodes of mild diaphoresis and dizziness. He also described a fast heartbeat for 2 to 3 years, which would last for 15 to 20 minutes. It was not associated with any shortness of breath or chest discomfort. He underwent treadmill testing by Dr. Oliva. He had a left axis deviation with poor R-wave progression from V1 to V2. Exercised for 8 minutes, stopped due to tachycardia, which was supraventricular tachycardia as well as possible atrial fibrillation. There was [address]-segment depression in V4 through V6, which was upsloping, but became downsloping during recovery in V6. With Valsalva and carotid massage, his atrial fibrillation returned to sinus rhythm. He was on Toprol at that time. This was increased from 100 to 200 daily. He also underwent cardiac catheterization and was found to have normal left ventricular function. There was a 20% distal LAD, 60% proximal circumflex as well as another 60% proximal circumflex and a 60% lesion in a small obtuse marginal. The right coronary artery had a 20 % mid stenosis and a 60% right posterior descending stenosis. The right posterior descending was very tortuous. It was felt best to treat him medically at that time. In April 1997, he was found to have an irregular rhythm and was in atrial fibrillation. His rate was controlled with the high dose Toprol and Coumadin was added. Echocardiogram revealed left atrial enlargement (4.8 cm). The study was technically difficult. There was normal left ventricular function, aortic valve sclerosis, mild mitral regurgitation, mild tricuspid regurgitation. He underwent a Cardiolite stress test in August 1997, which was negative. In September 1998, he underwent another Cardiolite treadmill testing and exercised for 4 minutes and had no chest discomfort. There was [address]-segment depression in II, III, F, V4 through V6. Cardiolite revealed normal wall motion with ejection fraction of 68 % and no evidence of stress-induced ischemia. In November 1998, he had a 30 minutes lower sternal epigastric discomfort, which he was unable to characterize. There was no pleuritic component. He was extremely weak, trying to walk into his appointment to see Dr. Up. He was brought to the emergency room and had a troponin I of 0.4, which then increased to 3.0 and CK went to 400; however, the CK-MB was normal. It was felt that he probably had a small myocardial infarction with 30 minutes of pain and elevated troponin I. Due to wheezing, Toprol was reduced from 200 to 100 daily and digoxin was added. He had slight elevation of liver function tests with negative abdominal ultrasound. In December 1998, he underwent dobutamine Cardiolite testing. He had poor R-wave progression V1 through V3 and developed ST-segment depression in lead II, V2 through V6, I and L. Cardiolite revealed stress-induced changes suggestive of inferior ischemia. He underwent cardiac catheterization and had a 90% proximal circumflex as well as 70% proximal circumflex. The first obtuse marginal was very small with a 90% stenosis at its takeoff. The distal circumflex was small with a 90% lesion (both vessels were approximately 1 mm). Right coronary artery had a 30% stenosis. Ejection fraction was 60%. Duet 2.5 x 23 mm stent was placed from the second obtuse marginal into the proximal circumflex and the proximal portion was post dilated with 3 mm balloon. A 90% and 70% lesions were reduced to 0%. With balloon inflation , he had mid chest burning with ST-segment depression V2 through V6. In December 1998, he was walking 2 miles per day, noted a dramatic reduction in his dyspnea after stent placement. He underwent dobutamine Cardiolite testing, had a 20 to 30-beat run of ventricular tachycardia with rate of approximately 200 per minute. This resolve with coughing. Cardiolite revealed no evidence of significant ischemia with ejection fraction of 58%. In July 2002, stress echo testing was normal. In October 2003, he complained of dyspnea with walking up a hill. He had EKG changes with exercise, but was on digoxin. Echo revealed posterolateral wall ischemia. He then underwent catheterization later in October 2003. He had an 80% distal LAD stenosis continued good results. Stent placed in the proximal circumflex into the second obtuse marginal continued to show good result.. There was a 70 % first obtuse marginal lesion, which was less than 1 mm vessel. Right coronary artery had a 70% mid stenosis. An Express two 3.0 x 32 mm stent was placed and post dilated with 3.5 mm balloon. Final lesion was 0%. He was again admitted in December 2003 with increased shortness of breath. Echocardiogram during that admission revealed ejection fraction of 60% to 65% with peak gradient across the aortic valve of 81 mm, mean gradient of 40 mm. He underwent cardiac catheterization and had a distal 60% LAD lesion. There continued to be good stent results from the proximal circumflex and the mid RCA. There was a 70% lesion distal to the stent. The second obtuse marginal, which was a large vessel. Ejection fraction was 55% to 60%. The mean aortic gradient of catheterization was 39 mm with an aortic valve area of 0.84 cm2. He underwent CABG x1 with vein graft to the obtuse marginal, aortic valve replacement with a #23 [employer] pericardial valve, and Maze procedure with his atrial fibrillation. Also in the body of the dictation, it is stated that he underwent left atrial appendage ligation. Postoperatively, he was placed on amiodarone intravenously and was in sinus rhythm throughout his hospital stay. He remained in normal sinus rhythm until March 2006. He underwent electrocardioversion in September 2006 and was observed overnight due to bradycardia. He had recurrence of his atrial fibrillation and again was recommended he undergo repeat cardioversion. However , he never could make a decision in regard to that. Ultimately in May 2009, amiodarone was discontinued. In September 2010, digoxin was added for rapid ventricular response with his atrial fibrillation. He has had problems with diastolic heart failure as well as ascites. In December 2018, he underwent right thoracentesis with 1600 mL of fluid removed. I last saw him in May 2019 in the office. SD had discontinued his Coumadin due to anemia. Apparently, no further evaluation according the patient was performed. He did not have EGD or colonoscopy and has been off Coumadin since that time. He was just admitted on January 14 through January 16 with community-acquired pneumonia. He states that since he has been home since that time, he has had somewhat increased shortness of breath. He was becoming more short of breath and so returned to the hospital and has been given intravenous Lasix with improvement. He also states he has developed some pedal edema. He also admits to eating salty food recently. He denies any chest discomfort. PAST MEDICAL HISTORY: Hypertension, hypercholesterolemia, chronic atrial fibrillation, which he had even prior to aortic valve replacement, diastolic heart failure, hypothyroidism, obstructive sleep apnea, coronary artery disease, and seizure disorder. 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 Lumbar laminectomy and cholecystectomy. MEDICATIONS: 1. Aspirin 325 daily. 2. Furosemide 40 mg q.a.m. 3. Spironolactone 50 mg b.i.d. 4. Allopurinol 200 daily. 5. Atorvastatin 80 at bedtime. 6. Levothyroxine 125 mcg daily. 7. Metoprolol 25 b.i.d. 8. Dilantin 250 mg at bedtime, 300 mg q.a.m. ALLERGIES: PENICILLIN. FAMILY HISTORY: His sister Chanelle Sinclair had PTCA in the past and ultimately bypass surgery. SOCIAL HISTORY: Smoked less than 1 pack per day, but stopped approximately 40 years ago. He drank in the past, but stopped 20 years ago. He was drinking one quart of whiskey per day at that time. 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 REVIEW OF SYSTEMS: A 10-point review of systems is otherwise unremarkable. PHYSICAL EXAMINATION: VITAL SIGNS: Blood pressure 133/63, pulse of 80 and irregularly irregular. HEENT: PERRL. NECK: Supple. CHEST: Reveals crackles at the left base, so a decreased breath sounds on the right base. CARDIOVASCULAR: S1 and S2 normal without any S3 or S4. There is a 2/6 systolic murmur heard throughout the precordium. ABDOMEN: Normal bowel sounds without tenderness. EXTREMITIES: Revealed 1+ pedal edema. NEUROLOGIC: Grossly intact. SKIN: Warm and dry. LABORATORY DATA: EKG reveals atrial fibrillation with left axis deviation, anterolateral infarction. Chest x-ray reveals right pleural effusion. Hemoglobin 11.3, hematocrit 34.5, white count 6500, and platelets 206,000. Sodium 137, potassium 4.0, chloride 104, carbon dioxide 28, BUN 18, and creatinine 0.93. Troponin I is normal x3. BNP 224.7. Echocardiogram from January 15 revealed ejection fraction of 60% to 65%, mild prosthetic aortic stenosis, moderate mitral regurgitation, mitral annular calcification, moderate left atrial enlargement, and severe tricuspid regurgitation. IMPRESSION: 1. Acute on chronic diastolic heart failure. Also in the past, he has been found to have pulmonary artery hypertension as well as ascites. He has been somewhat noncompliant with salt intake recently and also states that his breathing has been worse since he was hospitalized with pneumonia two weeks ago. He also had 1600 mL of fluid removed from the right chest in December 2018. 2. Chronic anticoagulation. He was on Coumadin until last year when the SD discontinued this because he was anemic. However, he has never had any gastrointestinal evaluation for that. 3. Status post coronary artery bypass grafting x1 with vein graft to the obtuse marginal and bioprosthetic aortic valve replacement, maze procedure and left atrial appendage ligation. 4. Hypertension. 5. Hypercholesterolemia under poor control. I have tried to get him to take Zetia in addition to the atorvastatin, but the SD would not provide that. Also we made arrangements for him to receive Repatha; however, he ultimately decided he could not afford that either. His last LDL was 92. 6. Positive family history. 7. Distant smoker. 8. Obstructive sleep apnea. 9. History of seizure disorder. PLAN: The patient will continue to be diuresed. He ultimately may need to be on furosemide 40 mg b.i.d. at home. I am also quite concerned about his lack of anticoagulation with his chronic atrial fibrillation. His presumed GI blood loss has never been evaluated. He will undergo transesophageal echo to document the closure of the left atrial appendage if that has indeed occurred after ligation with surgery. Also consultation will be obtained with Gastroenterology to try to arrange outpatient GI evaluation. If his left atrial appendage is indeed ligated, then no anticoagulation would be needed. However, if it is open, and no specific GI etiology was found, consideration could be given to anticoagulation with one of the newer agents such as Eliquis 5 mg b.i.d. I feel that these questions need to be answered because if his left atrial appendage is indeed open, he is at significant risk for stroke. Job ID: [id number] [facility]
[2020-01-29] MEDS: Atorvastatin Calcium 40 MG TAB PO SCH (20:30)
[2020-01-30] MEDS: Furosemide 40 MG/4 ML VIAL SLOW IVP SCH ×2 (06:06→13:30)
[2020-01-30] MEDS: Levothyroxine Sodium 125 MCG TAB PO SCH (06:11)
[2020-01-30] MEDS: Aspirin 325 MG TAB PO SCH (08:50)
[2020-01-30] MEDS: Spironolactone 25 MG TAB PO SCH ×2 (08:50→16:30)
[2020-01-30] MEDS: Metoprolol Tartrate 25 MG TAB PO SCH ×2 (08:50→20:54)
[2020-01-30] MEDS: Allopurinol 100 MG TAB PO SCH (08:50)
[2020-01-30] MEDS ORDERED: PROPOFOL 20 ML ONE (09:28)
[2020-01-30] MEDS ORDERED: PROPOFOL 200 MG/20 ML VIAL ONE (10:12)
--- NOTE | 2020-01-30 12:05 | OP ---
DATE OF PROCEDURE: 01/30/2020 PROCEDURE PERFORMED: Transesophageal echocardiogram. INDICATION: This is an 89-year-old gentleman with paroxysmal atrial fibrillation. DESCRIPTION OF PROCEDURE: The patient was taken to the PACU. The patient was sedated by Anesthesiology. A transesophageal probe was placed into the distal esophagus and stomach. Echocardiographic images were obtained. The transesophageal probe was removed. FINDINGS: 1. Normal left ventricular systolic function. 2. Biatrial enlargement. 3. Bioprosthetic aortic valve. 4. Severe mitral regurgitation. 5. [id number]-ax-fnhqjw tricuspid regurgitation. 6. Left atrial appendage was well ligated with no appreciable leak noted. 7. Atherosclerotic debris in the descending aorta. IMPRESSION: Well ligated left atrial appendage. Job ID: [id number] [facility]
--- NOTE | 2020-01-30 14:36 | PDOC.HOSPP ---
- Subjective Encounter Date: 01/30/20 Encounter Time: 14:34 Subjective: no chest pain, min FLEMING - Objective Vital Signs & Weight: Vital Signs (12 hours) Temp Pulse Resp BP Pulse Ox 01/30/20 11:55 97.5 F L 80 18 122/58 L 97 01/30/20 07:50 97.7 F 89 18 132/62 97 01/30/20 06:06 97.5 F L 86 16 125/60 96 Weight Weight 171 lb 12.8 oz I&O: 01/29/20 01/30/20 01/31/20 06:59 06:59 06:59 Intake Total 484 1984 Output Total 592 1755 Balance -166 -333 Result Diagrams: 01/28/20 16:38 01/29/20 04:33 Radiology Reviewed by me: No (PILLO good placement of left atrial occlusive device ) Hospitalist ROS - Medication Medications: Active Medications Generic Name Dose Route Start Last Admin Trade Name Freq PRN Reason Stop Dose Admin Allopurinol 200 mg 01/29/20 09:00 01/30/20 08:50 Zyloprim PO 200 mg DAILY SEAN Administration Aspirin 325 mg 01/29/20 09:00 01/30/20 08:50 Aspirin PO 325 mg DAILY SEAN Administration Atorvastatin Calcium 80 mg 01/29/20 21:00 01/29/20 20:30 Lipitor PO 80 mg HS SEAN Administration Furosemide 40 mg 01/29/20 06:00 01/30/20 13:30 Lasix SLOW IVP 40 mg 0600,1400 SEAN Administration Levothyroxine Sodium 125 mcg 01/29/20 06:00 01/30/20 06:11 Synthroid PO Not Given 0600 SEAN Metoprolol Tartrate 25 mg 01/29/20 09:00 01/30/20 08:50 Lopressor PO 25 mg BID SEAN Administration Phenytoin Sodium 200 mg 01/29/20 21:00 01/29/20 20:30 Dilantin Er PO 200 mg HS SEAN Administration Phenytoin Sodium 300 mg 01/29/20 09:00 01/30/20 08:51 Dilantin Er PO Not Given QAM SEAN Spironolactone 50 mg 01/29/20 08:00 01/30/20 08:50 Aldactone PO 50 mg BID-WM SEAN Administration - Exam General Appearance: awake alert Neck: no JVD Heart: no murmur, irregular Respiratory - other findings: scant basilar rales Gastrointestinal: soft, normal bowel sounds Extremities: no edema Hosp A/P (1) Acute on chronic diastolic (congestive) heart failure Code(s): I50.33 - ACUTE ON CHRONIC DIASTOLIC (CONGESTIVE) HEART FAILURE Status : Acute (2) HTN (hypertension) Code(s): I10 - ESSENTIAL (PRIMARY) HYPERTENSION Status: Acute Qualifiers: Hypertension type: essential hypertension Qualified Code(s): I10 - Essential (primary) hypertension (3) CAD (coronary artery disease) Code(s): I25.10 - ATHSCL HEART DISEASE OF [place] CORONARY ARTERY W/O ANG PCTRS Status: Chronic Qualifiers: Coronary Disease-Associated Artery/Lesion type: [place] artery [place] vs. transplanted heart: [place] heart Associated angina: without angina Qualified Code(s): I25.10 - Atherosclerotic heart disease of [place] coronary artery without angina pectoris (4) Afib Code(s): I48.91 - UNSPECIFIED ATRIAL FIBRILLATION Status: Chronic Qualifiers: Atrial fibrillation type: unspecified Qualified Code(s): I48.91 - Unspecified atrial fibrillation (5) Hypothyroidism Code(s): E03.9 - HYPOTHYROIDISM, UNSPECIFIED Status: Chronic - Plan PILLO successful- no need for anticag cont iv lasix discuss with cardiology eliu hannah in AM
[2020-01-30] MEDS: Atorvastatin Calcium 40 MG TAB PO SCH (20:54)
[2020-01-31] MEDS: Levothyroxine Sodium 125 MCG TAB PO SCH (05:32)
[2020-01-31] MEDS: Furosemide 40 MG/4 ML VIAL SLOW IVP SCH (05:32)
[2020-01-31 05:42] LABS: Anion Gap 13 mmol/L (10-20); BUN (Urea Nitrogen) 16 mg/dL (8.4-25.7); Calc. Creatinine Clearance 71 mL/min (70-130); Calcium 8.2 mg/dL (7.8-10.44); Carbon Dioxide 26 mmol/L (23-31); Chloride 105 mmol/L (98-107); Estimated GFR-MDRD Greater than 90; Glucose 83 mg/dL (83-110); Potassium 3.7 mmol/L (3.5-5.1); Sodium 140 mmol/L (136-145)
[2020-01-31 08:21] VITALS: TEMP 97.3
[2020-01-31] MEDS: Allopurinol 100 MG TAB PO SCH (10:12)
[2020-01-31] MEDS: Aspirin 325 MG TAB PO SCH (10:12)
[2020-01-31] MEDS: Metoprolol Tartrate 25 MG TAB PO SCH (10:12)
[2020-01-31] MEDS: Spironolactone 25 MG TAB PO SCH (10:12)
[2020-01-31 12:15] VITALS: BP 118/84
--- NOTE | 2020-01-31 13:36 | DIS ---
DATE OF ADMISSION: 01/30/2020 DATE OF DISCHARGE: 01/31/2020 PRIMARY CARE PHYSICIAN: [facility] Call Admission. PRIMARY DISCHARGE DIAGNOSES: 1. Acute on chronic diastolic congestive heart failure exacerbation. 2. Severe tricuspid regurgitation. 3. Severe mitral regurgitation. SECONDARY DISCHARGE DIAGNOSES: 1. Chronic diastolic heart failure. 2. Hypertension. 3. Coronary artery disease. 4. History of paroxysmal atrial fibrillation, currently in sinus rhythm. 5. Macrocytic anemia. 6. Physical deconditioning. 7. Hypothyroidism. 8. Seizure disorder. 9. Dyslipidemia. 10. Gout. PRIMARY PROCEDURE/OPERATION: Transesophageal echocardiography by Dr. Westfall. RADIOLOGICAL INVESTIGATION: Chest x-ray on admission showed hfrf-ex-[id number] CHF. A transesophageal echocardiography showed bkomglwj-ft-ulbtow tricuspid and mitral regurgitation. SIGNIFICANT LABORATORY DATA: WBC 6.5, hemoglobin 11.3, MCV 101, and platelet 206. Sodium 140, potassium 3.7, BUN 16, creatinine 0.78, and calcium 8.2. LFT normal other than elevated alkaline phosphatase. Troponin negative. DISCHARGE MEDICATIONS: 1. Tylenol Extra Strength two tablets q.6 hourly p.r.n. 2. Allopurinol 200 mg daily. 3. Aspirin 325 mg daily. 4. Levothyroxine 125 mcg p.o. daily. 5. Lipitor 80 mg p.o. at bedtime. 6. Metoprolol tartrate 25 mg p.o. b.i.d. 7. Dilantin 300 mg p.o. daily and 250 mg at bedtime. 8. Aldactone 50 mg b.i.d. 9. Vitamin B12 of 1000 mcg p.o. daily. 10. Folic acid 1 mg daily. 11. Lasix 40 mg b.i.d. CONTRAINDICATION: The patient is not on anticoagulation therapy because of fall risk and contraindicated based on Cardiology recommendation. CODE STATUS: Full code. INPATIENT DECAL MAKER: Dr. Westfall was following while in hospital. TEST RESULTS PENDING ON DISCHARGE: None. ALLERGIES: PENICILLIN. DISCHARGE PLAN: Posthospital, the patient will follow up with primary care physician in 1 week. The patient will follow up with Dr. Waite. The patient will follow up with cardiac rehab on February 12, 2020. HOSPITAL COURSE: An 89-year-old male, who was initially admitted by Dr. Terra Lilly on January 28, 2020. Please see her H and P for further details. The patient was admitted for observation. The patient was having increasing shortness of breath. The patient had chest x-ray, which showed finding suggestive of [id number] congestive heart failure. The patient was treated with IV Lasix in the emergency room as well as after admission. The patient was also evaluated by Cardiology during this admission. Cardiology did echocardiography, which was transesophageal and showed severe mitral regurgitation and mfzluybx-[id number] tricuspid regurgitation. Dr. Waite was also following and he cleared him for discharge. The patient was not on any blood thinner medicine because of his previous history of fall and he is not a good candidate for long-term anticoagulation for anemia and fall risk. During this admission, the patient underwent transesophageal echocardiography and the patient was recommended by Cardiology to continue Lasix 40 mg b.i.d. This patient had previous history of chronic anticoagulation before and was terminated because he has also fall risks and he has anemia. Cardiology recommended not to continue chronic anticoagulation. At this point, we have discussed with the patient about importance of chronic anticoagulation with his illness. The patient expressed understanding and he will expedite his process for gastroenterology evaluation as an outpatient basis. Cardiology recommended that at this point, I will hold on Eliquis therapy and once anemia workup is finished, then the patient will need chronic anticoagulation. At this time, we have not given Eliquis therapy per Cardiology recommendation, but he is instructed to follow up with Gastroenterology, so he can have outpatient endoscopic evaluation done for anemia and then Cardiology will consider starting Eliquis therapy. The patient will follow up with Cardiology within a week. Job ID: [id number] [facility]
[2020-01-31] MEDS ORDERED: Furosemide 40 MG TAB PO SCH (14:00)
== END 2020-01-31 14:25 | disposition home or self-care (01) | DRG 293 ==
LOC: ERS 16:06 → 2SW 20:23 → OBSVTOIN 01-30 14:16
PROVIDERS: ADMIT Family Medicine; ATTEND Family Medicine
PROC: B24BZZ4 Ultrasonography of Heart with Aorta, Transesophageal (ICD-10-PCS; principal; 2020-01-30)
DX: I11.0 Hypertensive heart disease with heart failure (principal); I50.33 Acute on chronic diastolic (congestive) heart failure; E78.5 Hyperlipidemia, unspecified; G40.909 Epilepsy, unspecified, not intractable, without status epilepticus; E03.9 Hypothyroidism, unspecified; M10.9 Gout, unspecified; G47.33 Obstructive sleep apnea (adult) (pediatric); I45.81 Long QT syndrome; E78.00 Pure hypercholesterolemia, unspecified; I25.10 Atherosclerotic heart disease of native coronary artery without angina pectoris; D53.9 Nutritional anemia, unspecified; F03.90 Unspecified dementia, unspecified severity, without behavioral disturbance, psychotic disturbance, mood disturbance, and anxiety; I08.1 Rheumatic disorders of both mitral and tricuspid valves; I48.0 Paroxysmal atrial fibrillation; Z95.2 Presence of prosthetic heart valve; Z99.89 Dependence on other enabling machines and devices; Z95.1 Presence of aortocoronary bypass graft; Z90.49 Acquired absence of other specified parts of digestive tract; Z79.890 Hormone replacement therapy; Z79.82 Long term (current) use of aspirin; Z79.899 Other long term (current) drug therapy; Z88.0 Allergy status to penicillin
CPT/HCPCS: 36415; 71045; 80048; 80053; 83540; 83550; 83880; 84484; 85025; 93005; 93312; 93798; 94760; 96361; 96374; J1940; J2704

== ENCOUNTER 2020-03-16 18:57 | Observation (INO) | payer MEDICARE ==
[2020-03-16 19:26] LABS: #Eosinphils 0.2 thou/uL (0.0-0.7); #Monocytes 0.7 thou/uL (0.11-0.59); #Neutrophils 5.9 thou/uL (1.40-6.50); %Basophils 0.4 % (0.0-1.0); %Eosinophils 2.9 % (0.0-10.0); %Lymphocytes 12.3 % (21.0-51.0); %Monocytes 9.5 % (0.0-10.0); Hemoglobin 9.9 g/dL (14.0-18.0); Mean Corpuscular HGB CONC 32.1 g/dL (32.0-36.0); Mean Corpuscular Hemoglobin 30.5 pg (27.0-31.0); Mean Platelet Volume 8.2 fL (7.4-10.4); Platelet Count 206 thou/uL (130-400); RBC Distribution Width 14.1 % (11.5-14.5); Red Blood Cell (RBC) Count 3.25 mill/uL (4.70-6.10); White Blood Cell (WBC) Count 7.8 thou/uL (4.8-10.8)
--- NOTE | 2020-03-16 19:28 | RAD ---
Exam: Chest one view HISTORY:Dominant distention. Bilateral lower extremity edema. Aortic valve replacement. Cardiac stent s. Comparison: 01/28/2020 FINDINGS: Cardiac silhouette: Cardiomegaly. Sternotomy wires. Prosthetic aortic valve. Aorta: Atherosclerosis Pulmonary vessels: Normal Costophrenic angles: Bilateral pleural effusions LUNGS: Stable opacification the lung bases. Pneumothorax: None Osseous abnormalities: Degenerative changes in both shoulders. IMPRESSION: Congestive heart failure.
[2020-03-16 19:47] LABS: ALT (SGPT) 14 U/L (8-55); AST (SGOT) 24 U/L (5-34); Albumin 3.9 g/dL (3.4-4.8); Alkaline Phosphatase 210 U/L (40-110); Anion Gap 14 mmol/L (10-20); BUN (Urea Nitrogen) 31 mg/dL (8.4-25.7); Bilirubin, Total 0.5 mg/dL (0.2-1.2); Calc. Creatinine Clearance 0 mL/min (70-130); Calcium 8.3 mg/dL (7.8-10.44); Carbon Dioxide 23 mmol/L (23-31); Chloride 101 mmol/L (98-107); Estimated GFR-MDRD 44; Globulin 3.1 g/dL (2.4-3.5); Glucose 126 mg/dL (83-110); Potassium 3.8 mmol/L (3.5-5.1); Sodium 134 mmol/L (136-145)
[2020-03-16] MEDS ORDERED: Furosemide 40 MG/4 ML VIAL ONE (19:59)
[2020-03-16 20:11] LABS: CKMB 3.9 ng/mL (0-6.6)
[2020-03-16] MEDS ORDERED: Acetaminophen 325 MG TAB PO PRN (22:01)
--- NOTE | 2020-03-16 22:12 | PDOC.HHP ---
Hospitalist HPI - History of Present Illness SOB x 1 week History of Present Illness: PCP: [id number] Cardiology: Dr. Waite The patient is a 89/M PMH significant for CHF, CAD w 3 stents, CABG x1 with AVR , atrial fibrilation (on ASA 324mg), HERMES (compliant w/ CPAP), HTN, HLD, hypothyrodism that presents for above complaint. The patient reports that he has had increasing shortness of breath for the past week, with associated lower extremity swelling, dyspnea on exertion and orthopnea. He also reports a 10 pound weight increase over the past week. Reports that the HF clinic recently increased his dose of lasix from 40mg daily to 40mg twice daily. Denies chest pain and heart palpitations. Denies cough. Denies fever or chills. Denies recent travel and sick contacts. Also reports straining when having BM, last BM 3 days ago. Reports taking enema this morning, with no relief. ED Course: VS T 98.1F, BP 120/60, HR 91, RR 18, Sp02 94% RA EKG afib rate controlled 91 bpm CXR + CHF exacerbation Trop 0.029 BNP 328.5 CKMB 3.9 WBC 7.8 Na 134 K 3.8 BUN 31 Creatinine 1.52 ALP 210 AST 24 ALT 14 Given: Lasix 40mg IVP Allergies: Penicillins Home Medications: 1. Phenytoin 300mg po q AM and 250mg po q hs 2. Metoprolol tartrate 25mg po BID 3. Lasix 40mg po BID 4. Spironolactone 50mg po BID 5. ASA 234mg po q day 6. Atorvastatin 80mg po q hs 7. Levothyroxine 125mcg po q am 8. Allopurinol 200mg po q day Hospitalist ROS - Review of Systems Constitutional: denies: fever, chills Eyes: denies: pain, vision change, conjunctivae inflammation, eyelid inflammation, redness, other ENT: denies: ear pain, ear discharge, nose pain, nose discharge, nose congestion , mouth pain, mouth swelling, throat pain, throat swelling, other Respiratory: reports: shortness of breath, SOB with excertion. denies: cough, hemoptysis, sputum, wheezing Cardiovascular: reports: orthopnea, edema. denies: chest pain, palpitations, paroxysmal noc. dyspnea, light headedness Gastrointestinal: reports: constipation. denies: nausea, vomiting, abdominal pain, diarrhea, melena, hematochezia Genitourinary: denies: dysuria, frequency, incontinence, hematuria, retention, other Musculoskeletal: denies: neck pain, shoulder pain, arm pain, back pain, hand pain, leg pain, foot pain, other Neurological: denies: numbness, change in speech, confusion Hospitalist History - Past Medical History Cardiac: reports: AFIB (rate controlled (ASA)), CAD (x 3 stents), CHF, HTN, Hyperlipidemia, Aortic stenosis, Other (PVD) Pulmonary: reports: congestive heart failure, Other (HERMES on CPAP at home) PROJECT COORDINATOR: reports: Dementia, Seizure Rheumatologic: reports: Gout Endocrine: reports: Hypothyroidism - Past Surgical History Past Surgical History: reports: Cholecystectomy, CABG (x 1 with AVR CAD x 3) - Family History Family History: reports: no pertinent history - Social History Smoking Status: Unknown if ever smoked Alcohol: reports: None Drugs: reports: none Living Situation: With Family Occupation: Lives with spouse in 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 - Exam General Appearance: awake alert General - other findings: Mild distress, speaking through mask on RA Eye: anicteric sclera ENT: normocephalic atraumatic, dry oral mucosa Neck: supple, no JVD Heart: no gallops, no rubs, normal peripheral pulses, irregular, III/IV Respiratory: no wheezes, no ronchi, tachypneic (mild) Respiratory - other findings: diminished lower lobes Gastrointestinal: soft, non-tender, normal bowel sounds, no bruit, no guarding, no rigidity, distended Extremities: no cyanosis Extremities - other findings: 3+ edema to BLE Skin: no rashes Neurological: no focal deficits Psychiatric: normal affect, A&O x 3 Hospitalist Results - Labs Result Diagrams: 03/16/20 19:17 03/16/20 19:17 Lab results: WBC 7.8 thou/uL (4.8-10.8) 03/16/20 19:17 Hgb 9.9 g/dL (14.0-18.0) L 03/16/20 19:17 Hct 30.8 % (42.0-52.0) L 03/16/20 19:17 MCV 95.0 fL (78.0-98.0) 03/16/20 19:17 Plt Count 206 thou/uL (130-400) 03/16/20 19:17 Neutrophils % 75.0 % (42.0-75.0) 03/16/20 19:17 Sodium 134 mmol/L (136-145) L 03/16/20 19:17 Potassium 3.8 mmol/L (3.5-5.1) 03/16/20 19:17 Chloride 101 mmol/L (98-107) 03/16/20 19:17 Carbon Dioxide 23 mmol/L (23-31) 03/16/20 19:17 BUN 31 mg/dL (8.4-25.7) H 03/16/20 19:17 Creatinine 1.52 mg/dL (0.7-1.3) H 03/16/20 19:17 Glucose 126 mg/dL (83-110) H 03/16/20 19:17 Calcium 8.3 mg/dL (7.8-10.44) 03/16/20 19:17 Total Bilirubin 0.5 mg/dL (0.2-1.2) 03/16/20 19:17 AST 24 U/L (5-34) 03/16/20 19:17 ALT 14 U/L (8-55) 03/16/20 19:17 Alkaline Phosphatase 210 U/L (40-110) H 03/16/20 19:17 CK-MB (CK-2) 3.9 ng/mL (0-6.6) 03/16/20 19:17 Troponin I 0.029 ng/mL (< 0.028) H 03/16/20 19:17 B-Natriuretic Peptide 328.5 pg/mL (0-100) H 03/16/20 19:17 Serum Total Protein 7.0 g/dL (5.8-8.1) 03/16/20 19:17 Albumin 3.9 g/dL (3.4-4.8) 03/16/20 19:17 - EKG Interpretation EKG: afib rate controlled - Radiology Interpretation Chest x-ray Status: report reviewed by ma Hospitalist H&P A/P - Problem (1) Acute exacerbation of congestive heart failure Code(s): I50.9 - HEART FAILURE, UNSPECIFIED Status: Acute Assessment and Plan: Admit to telemetry, observation status Expecting length of stay < 2 midnights CXR indicates CHF exacerbation BNP 325.5, was 224.7 on 01/28/20 Troponins elevated, likely secondary to demand ischemia Will trend trops Patient received Lasix 40mg IVP in ER Will start Lasix 40mg IVP BID Will monitor potassium levels in am HH diet with 15ooml FR, I&Os, Daily weights last echo 01/15/20 showed EF 60-65% with severe tricuspid regurgitation and mod mitral regurgitation and mild (2) JOANNE (acute kidney injury) Code(s): N17.9 - ACUTE KIDNEY FAILURE, UNSPECIFIED Status: Acute Assessment and Plan: Baseline Creatinine between 0.9 and 1.0 Will get UA and renal US Will give lasix 40mg IVP BID Will recheck levels in am Avoid nephrotoxic medications will hold spironolactone for now (3) Constipation Code(s): K59.00 - CONSTIPATION, UNSPECIFIED Status: Acute Assessment and Plan: Abdomen soft, distended, denies abdominal pain and N/V Abdominal distention likely secondary to CHF exacerbation low concern for SBO given presentation Will get KUB to assess stool in bowel Will add prn constipation medications (4) Afib Code(s): I48.91 - UNSPECIFIED ATRIAL FIBRILLATION Status: Chronic Qualifiers: Atrial fibrillation type: unspecified Qualified Code(s): I48.91 - Unspecified atrial fibrillation Assessment and Plan: Rate controlled, no hemodynamic compromise Taking ASA 324mg daily Will continue home aspirin dosing (5) HTN (hypertension) Code(s): I10 - ESSENTIAL (PRIMARY) HYPERTENSION Status: Chronic Assessment and Plan: Blood pressure stable Will restart home dose metoprolol tartrate 25mg BID Will monitor Blood pressure (6) HLD (hyperlipidemia) Code(s): E78.5 - HYPERLIPIDEMIA, UNSPECIFIED Status: Chronic Assessment and Plan: will restart home dose of atorvastatin 80mg po q hs (7) HERMES (obstructive sleep apnea) Code(s): G47.33 - OBSTRUCTIVE SLEEP APNEA (ADULT) (PEDIATRIC) Status: Chronic Assessment and Plan: Patient has home CPAP with him Will use as needed. (8) Hypothyroidism Code(s): E03.9 - HYPOTHYROIDISM, UNSPECIFIED Status: Chronic Assessment and Plan: Will check TSH level Will restart levothyroxine 125mcg home medication (9) History of seizure Code(s): Z87.898 - PERSONAL HISTORY OF OTHER SPECIFIED CONDITIONS Status: Chronic Assessment and Plan: Last seizure 1 year ago, followed by Dr. lang Will restart home medications Phenytoin ER 300mg q am and 250 mg q hs (10) Dementia Code(s): F03.90 - UNSPECIFIED DEMENTIA WITHOUT BEHAVIORAL DISTURBANCE Status: Chronic Assessment and Plan: chronic, stable Alert and oriented, pleasant - Plan Plan: Consult HF clinic No mechanical DVT prophylaxis GI prophylaxis Full Code BUSTER Giles at [phone]
[2020-03-16 23:06] LABS: Troponin I 0.029 ng/mL (< 0.028)
[2020-03-16] MEDS ORDERED: Senokot S 8.6-50 MG TAB PO PRN (23:15)
[2020-03-16 23:41] VITALS: BMI 24.2
[2020-03-16 23:59] LABS: Bacteria/HPF None Seen HPF (None Seen); RBC/HPF 0-3 HPF (0-3); Squamous Epithelial None Seen HPF (0-3); WBC/HPF 0-3 HPF (0-3)
[2020-03-17] LABS: Bilirubin Negative (Negative); Blood, Urine Negative (Negative); Clarity Clear (Clear); Glucose, Urine (Dipstick) Normal (Negative); Leukocyte Negative Leu/uL (Negative); Nitrite Negative (Negative); Protein, Urine (Dipstick) Negative (Neg-Trace); Urobilinogen Normal mg/dL (Less than 2)
[2020-03-17 02:17] LABS: Troponin I 0.023 ng/mL (< 0.028)
[2020-03-17 04:20] LABS: Free T4 (Free Thyroxine) 0.9 ng/dL (0.70-1.48)
[2020-03-17 04:24] LABS: #Eosinphils 0.3 thou/uL (0.0-0.7); #Lymphocytes 1.3 thou/uL (1.20-3.40); #Monocytes 0.7 thou/uL (0.11-0.59); #Neutrophils 5.3 thou/uL (1.40-6.50); %Basophils 0.2 % (0.0-1.0); %Eosinophils 4.3 % (0.0-10.0); %Lymphocytes 16.9 % (21.0-51.0); %Monocytes 9.2 % (0.0-10.0); %Neutrophils 69.4 % (42.0-75.0); Hemoglobin 9.1 g/dL (14.0-18.0); Mean Corpuscular HGB CONC 31.7 g/dL (32.0-36.0); Mean Corpuscular Volume 94.8 fL (78.0-98.0); Mean Platelet Volume 8.8 fL (7.4-10.4); Platelet Count 187 thou/uL (130-400); RBC Distribution Width 14.2 % (11.5-14.5); Red Blood Cell (RBC) Count 3.04 mill/uL (4.70-6.10); White Blood Cell (WBC) Count 7.7 thou/uL (4.8-10.8)
[2020-03-17 05:01] LABS: ALT (SGPT) 12 U/L (8-55); AST (SGOT) 26 U/L (5-34); Albumin 3.3 g/dL (3.4-4.8); Alkaline Phosphatase 182 U/L (40-110); Anion Gap 15 mmol/L (10-20); BUN (Urea Nitrogen) 27 mg/dL (8.4-25.7); Bilirubin, Total 0.5 mg/dL (0.2-1.2); Calc. Creatinine Clearance 50 mL/min (70-130); Calcium 8.1 mg/dL (7.8-10.44); Carbon Dioxide 21 mmol/L (23-31); Chloride 104 mmol/L (98-107); Estimated GFR-MDRD 57; Globulin 2.9 g/dL (2.4-3.5); Glucose 76 mg/dL (83-110); Potassium 3.8 mmol/L (3.5-5.1); Protein, Total 6.2 g/dL (5.8-8.1); Sodium 136 mmol/L (136-145)
[2020-03-17] MEDS: Furosemide 40 MG/4 ML VIAL SLOW IVP SCH ×2 (05:04→15:14)
[2020-03-17] MEDS: Levothyroxine Sodium 125 MCG TAB PO SCH (05:04)
[2020-03-17] MEDS ORDERED: Aspirin 325 MG TAB PO SCH (08:00)
[2020-03-17] MEDS: Aspirin 325 mg Enteric Coated Tablet PO SCH (08:21)
[2020-03-17] MEDS: Famotidine 20 MG TAB PO SCH (08:21)
--- NOTE | 2020-03-17 08:21 | ULT ---
RENAL ULTRASOUND: HISTORY: Renal insufficiency. FINDINGS: Real-time imaging of the right and left kidneys was performed. The right kidney measures 9.9 and the left kidney 10.4 cm in size. Cortical thinning is seen bilaterally. No cyst, mass, or obstruction. Ascites is noted. The visualized liver parenchyma shows a somewhat nodular contour to the liver wh ich suggests some element of cirrhotic change. Bladder region appears unremarkable. IMPRESSION: 1. Cortical thinning of both kidneys without evidence of obstruction. 2. Mild ascites. Also a suggestion of some cirrhotic change to the liver. POS: MONSTER
[2020-03-17] MEDS: Folic Acid 1 MG TAB PO SCH (08:22)
[2020-03-17] MEDS: Metoprolol Tartrate 25 MG TAB PO SCH ×2 (08:22→20:15)
[2020-03-17] MEDS: Cyanocobalamin (Vitamin B-12) 1,000 MCG TAB PO SCH (08:22)
[2020-03-17] MEDS: Allopurinol 100 MG TAB PO SCH (08:22)
--- NOTE | 2020-03-17 09:21 | RAD ---
KUB: HISTORY: Abdominal distention, constipation. FINDINGS: There is mild gaseous distention of the abdomen with air within small and large bowel. A mild amount of stool in the right and transverse colon. No signs of free air on the supine film. Post cholecys tectomy changes are present. There are arthritic changes of the spine and hips. IMPRESSION: No acute changes. POS: MONSTER
--- NOTE | 2020-03-17 20:23 | PDOC.HOSPP ---
- Subjective Encounter Date: 03/17/20 Encounter Time: 09:00 Subjective: no overnight events. This morning, breathing is much improved. Has no complaints. - Objective Vital Signs & Weight: Vital Signs (12 hours) Temp Pulse Pulse Pulse Resp BP BP 03/17/20 20:13 97.8 F 90 16 03/17/20 16:00 96.3 F L 81 18 03/17/20 12:00 97.1 F L 84 17 03/17/20 11:30 82 83 127/60 131/60 BP Pulse Ox Pulse Ox Pulse Ox 03/17/20 20:13 137/63 97 03/17/20 16:00 115/58 L 96 03/17/20 12:00 130/65 95 03/17/20 11:30 96 94 L Weight Weight 176 lb 14.4 oz I&O: 03/16/20 03/17/20 03/18/20 06:59 06:59 06:59 Intake Total 600 600 Output Total 1225 1700 Balance -625 -1100 Result Diagrams: 03/17/20 03:37 03/17/20 03:37 Hospitalist ROS - Review of Systems Constitutional: denies: fever, chills, sweats, weakness, malaise, other Respiratory: denies: cough, dry, shortness of breath, hemoptysis, SOB with excertion, pleuritic pain, sputum, wheezing, other Cardiovascular: denies: chest pain, palpitations, orthopnea, paroxysmal noc. dyspnea, edema, light headedness, other Gastrointestinal: denies: nausea, vomiting, abdominal pain, diarrhea, constipation, melena, hematochezia, other - Medication Medications: Active Medications Generic Name Dose Route Start Last Admin Trade Name Freq PRN Reason Stop Dose Admin Allopurinol 200 mg 03/17/20 09:00 03/17/20 08:22 Zyloprim PO 200 mg DAILY SEAN Administration Aspirin 325 mg 03/17/20 09:00 03/17/20 08:21 Ecotrin PO 325 mg DAILY SEAN Administration Atorvastatin Calcium 80 mg 03/17/20 21:00 03/17/20 20:15 Lipitor PO 80 mg HS SEAN Administration Cyanocobalamin 1,000 mcg 03/17/20 09:00 03/17/20 08:22 Vitamin B-12 PO 1,000 mcg DAILY SEAN Administration Famotidine 20 mg 03/17/20 09:00 03/17/20 08:21 Pepcid PO 20 mg DAILY SEAN Administration Folic Acid 1 mg 03/17/20 09:00 03/17/20 08:22 Folvite PO 1 mg DAILY SEAN Administration Furosemide 40 mg 03/17/20 06:00 03/17/20 15:14 Lasix SLOW IVP 40 mg 0600,1400 SEAN Administration Levothyroxine Sodium 125 mcg 03/17/20 06:00 03/17/20 05:04 Synthroid PO 125 mcg 0600 SEAN Administration Metoprolol Tartrate 25 mg 03/17/20 09:00 03/17/20 20:15 Lopressor PO 25 mg BID SEAN Administration Phenytoin Sodium 250 mg 03/17/20 21:00 03/17/20 20:15 Dilantin PO 250 mg HS SEAN Administration Phenytoin Sodium 300 mg 03/17/20 09:00 03/17/20 08:21 Dilantin Er PO 300 mg DAILY SEAN Administration - Exam General Appearance: NAD, awake alert Heart: irregular Heart - other findings: rate 70s-80s, afib on tele Respiratory: no wheezes, no ronchi Respiratory - other findings: b/l inspiratory rales from midfiled caudally Gastrointestinal: non-tender, normal bowel sounds, distended Extremities: 2+ LE edema Psychiatric: normal affect, normal behavior, A&O x 3 Hosp A/P - Plan #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
[2020-03-17] MEDS ORDERED: Atorvastatin Calcium 40 MG TAB PO SCH (21:00)
[2020-03-18 04:42] LABS: Anion Gap 12 mmol/L (10-20); BUN (Urea Nitrogen) 28 mg/dL (8.4-25.7); Calc. Creatinine Clearance 50 mL/min (70-130); Calcium 8.2 mg/dL (7.8-10.44); Carbon Dioxide 25 mmol/L (23-31); Chloride 103 mmol/L (98-107); Estimated GFR-MDRD 58; Glucose 84 mg/dL (83-110); Magnesium 2.1 mg/dL (1.6-2.6); Potassium 3.5 mmol/L (3.5-5.1); Sodium 136 mmol/L (136-145)
[2020-03-18 05:33] LABS: Band 2 % (5-11); Eosinophils 2 % (0-10); Hemoglobin 9.2 g/dL (14.0-18.0); Lymphocytes 19 % (21-51); MDiff Complete? YES; Mean Corpuscular HGB CONC 32.4 g/dL (32.0-36.0); Mean Corpuscular Hemoglobin 30.4 pg (27.0-31.0); Mean Corpuscular Volume 93.8 fL (78.0-98.0); Mean Platelet Volume 8.2 fL (7.4-10.4); Monocytes 2 % (0-10); Neutrophil 75 % (42-75); Platelet Count 193 thou/uL (130-400); RBC Distribution Width 14.1 % (11.5-14.5); Red Blood Cell (RBC) Count 3.02 mill/uL (4.70-6.10); White Blood Cell (WBC) Count 7.3 thou/uL (4.8-10.8)
[2020-03-18] MEDS: Furosemide 40 MG/4 ML VIAL SLOW IVP SCH ×2 (06:02→15:15)
[2020-03-18] MEDS: Levothyroxine Sodium 125 MCG TAB PO SCH (06:02)
[2020-03-18 06:37] LABS: Elliptocytes SLIGHT = 2-5 cells (100X) (0-1/hpf)
[2020-03-18 06:38] LABS: Anisocytosis SLIGHT = 6-15 cells (100X) (0-5/hpf)
[2020-03-18] MEDS: Allopurinol 100 MG TAB PO SCH (09:07)
[2020-03-18] MEDS: Aspirin 325 mg Enteric Coated Tablet PO SCH (09:07)
[2020-03-18] MEDS: Metoprolol Tartrate 25 MG TAB PO SCH (09:08)
[2020-03-18] MEDS: Famotidine 20 MG TAB PO SCH (09:08)
[2020-03-18] MEDS: Folic Acid 1 MG TAB PO SCH (09:08)
[2020-03-18] MEDS: Cyanocobalamin (Vitamin B-12) 1,000 MCG TAB PO SCH (09:08)
[2020-03-18 17:11] VITALS: BP 117/59; TEMP 98.2
--- NOTE | 2020-03-19 12:20 | DIS ---
DATE OF ADMISSION: 03/16/2020 DATE OF DISCHARGE: 03/18/2020 HISTORY/HOSPITAL COURSE: Mr. Giles is an 89-year-old male with a medical history of valvulopathy, CHF with moderate mitral regurgitation, coronary artery disease status post CABG and placement of 3 stents, atrial fibrillation, HERMES, who presented with progressively worsening lower extremity edema, dyspnea on exertion, and orthopnea. The patient endorsed nonadherence to dietary modification including fluid restriction and sodium intake, and was diagnosed with decompensated heart failure due to nonadherence. The patient was started on aggressive diuresis, and during his inpatient stay, lost 6 pounds. Breathing significantly improved and he was back to baseline. He was discharged home with followup appointments with his primary care physician after his Lasix was increased from 40 mg p.o. b.i.d. to 80 mg p.o. b.i.d. pending further evaluation by the PCP. PHYSICAL EXAMINATION: VITAL SIGNS: Blood pressure pulse 82, respiratory rate 17, pulse ox 97% on room air, temperature 97.8 Fahrenheit oral. GENERAL APPEARANCE: No apparent distress. Awake and alert. CARDIAC: irregularly irregular rhythm, rate 70s to 80s, atrial fibrillation on telemetry. LUNGS: No wheezing. No rhonchi. Positive for bilateral inspiratory rales in the lower martin, improved compared to the day of presentation. GI: Nontender, nondistended. Normal bowel sounds. EXTREMITIES: Lower extremity; +1 lower extremity edema, equal, pitting, improved compared to the day of presentation. PSYCHIATRIC: Normal affect. Normal behavior. Alert and oriented x3. DISCHARGE MEDICATIONS: New medications: None. Modified medications: Lasix changed from 40 mg b.i.d. to 80 mg b.i.d. for 3 days, then can revert back to his original dose, pending evaluation by his primary care physician. Continued medications: 1. Spironolactone. 2. Atorvastatin. 3. Allopurinol. 4. Levothyroxine. 5. Phenytoin. 6. Metoprolol. 7. Aspirin. 8. Acetaminophen. 9. Vitamin B12. 10. Folic acid. Job ID: [id number]
--- NOTE | 2020-03-20 14:17 | EKG ---
Test Reason : Blood Pressure : / mmHG Vent. Rate : 091 BPM Atrial Rate : 340 BPM P-R Int : 000 ms QRS Dur : 114 ms QT Int : 368 ms P-R-T Axes : 000 -66 095 degrees QTc Int : 452 ms Atrial fibrillation Left axis deviation Inferior infarct , age undetermined Anterior infarct , age undetermined New T wave inversion lead I Abnormal ECG Confirmed by JANINA LAUREN DO ([id number]), assistant editor CHRISTOPHER CAMPUZANO ([id number]) on 03/20/2020 2:17:42 PM Referred By: Confirmed By:JANINA LAUREN DO
== END 2020-03-18 17:00 | disposition home or self-care (01) ==
LOC: ERS 18:57 → 2NO 22:15
PROVIDERS: ADMIT Family Medicine; ATTEND Internal Medicine
DX: I11.0 Hypertensive heart disease with heart failure (principal); I50.9 Heart failure, unspecified; I34.0 Nonrheumatic mitral (valve) insufficiency; N17.9 Acute kidney failure, unspecified; I48.0 Paroxysmal atrial fibrillation; I25.10 Atherosclerotic heart disease of native coronary artery without angina pectoris; G47.33 Obstructive sleep apnea (adult) (pediatric); E78.5 Hyperlipidemia, unspecified; E03.9 Hypothyroidism, unspecified; I73.9 Peripheral vascular disease, unspecified; F03.90 Unspecified dementia, unspecified severity, without behavioral disturbance, psychotic disturbance, mood disturbance, and anxiety; M10.9 Gout, unspecified; K59.00 Constipation, unspecified; D64.9 Anemia, unspecified; Z79.82 Long term (current) use of aspirin; Z79.899 Other long term (current) drug therapy; Z88.0 Allergy status to penicillin; Z91.11 Patient's noncompliance with dietary regimen; Z95.1 Presence of aortocoronary bypass graft; Z95.5 Presence of coronary angioplasty implant and graft
CPT/HCPCS: 71045; 74018; 76770; 80048; 80053; 81001; 82553; 83615; 83735 ×2; 83880; 84439; 84481; 84484 ×3; 85007; 85025; 85027; 85046; 93005; 93798 ×2; 94760; 96374; 96376 ×2; 99285; G0378 ×4; 36415; 84443; 85060; J1940

== ENCOUNTER 2020-09-30 11:14 | Emergency (ER) | payer MEDICARE ==
[~2020-09-30 11:14] MED LIST: Iopamidol-370 76% 500 ML 1 ML ONE
[2020-09-30 12:30] LABS: Bilirubin Negative (Negative); Blood, Urine Negative (Negative); Clarity Clear (Clear); Glucose, Urine (Dipstick) Normal (Negative); Ketone, Urine Negative (Negative); Leukocyte Negative Leu/uL (Negative); Nitrite Negative (Negative); Protein, Urine (Dipstick) Negative (Neg-Trace); Specific Gravity, Urine 1.013 (1.002-1.036); Urobilinogen Normal mg/dL (Less than 2)
[2020-09-30 12:43] LABS: #Eosinphils 0.1 thou/uL (0.0-0.7); #Lymphocytes 0.9 thou/uL (1.20-3.40); #Monocytes 0.5 thou/uL (0.11-0.59); #Neutrophils 5.9 thou/uL (1.40-6.50); %Basophils 0.1 % (0.0-1.0); %Lymphocytes 11.7 % (21.0-51.0); %Monocytes 6.4 % (0.0-10.0); %Neutrophils 80.8 % (42.0-75.0); Hemoglobin 9.9 g/dL (14.0-18.0); Mean Corpuscular Hemoglobin 31.2 pg (27.0-31.0); Mean Corpuscular Volume 97.3 fL (78.0-98.0); Mean Platelet Volume 7.9 fL (7.4-10.4); Platelet Count 246 thou/uL (130-400); RBC Distribution Width 14.4 % (11.5-14.5); Red Blood Cell (RBC) Count 3.18 mill/uL (4.70-6.10); White Blood Cell (WBC) Count 7.3 thou/uL (4.8-10.8)
[2020-09-30 13:07] LABS: ALT (SGPT) 21 U/L (8-55); AST (SGOT) 33 U/L (5-34); Alkaline Phosphatase 250 U/L (40-110); Anion Gap 15 mmol/L (10-20); BUN (Urea Nitrogen) 61 mg/dL (8.4-25.7); Bilirubin, Total 0.5 mg/dL (0.2-1.2); CK (CPK) 53 U/L (30-200); Calc. Creatinine Clearance 0 mL/min (70-130); Calcium 8.8 mg/dL (7.8-10.44); Carbon Dioxide 30 mmol/L (23-31); Chloride 95 mmol/L (98-107); Estimated GFR-MDRD 51; Globulin 3.9 g/dL (2.4-3.5); Glucose 96 mg/dL (83-110); Lipase 31 U/L (8-78); Potassium 3.8 mmol/L (3.5-5.1); Protein, Total 7.9 g/dL (5.8-8.1); Sodium 136 mmol/L (136-145)
--- NOTE | 2020-09-30 13:32 | CT ---
CT ABDOMEN WITH CONTRAST CT PELVIS WITH CONTRAST: DATE: 09/30/2020 HISTORY: 89-year-old male with urinary retention, constipation, and abdominal pain. COMPARISON: 08/01/2017 TECHNIQUE: IV injection of iodinated contrast media: administered. Oral contrast media:Not administered FINDINGS: Irregular margins of the liver consistent with cirrhosis. New finding of small amount of free fluid around the liver and spleen, and a small amount in the pelv ic inlet, as well as right paracolic gutter. New small right pleural effusion and adjacent consolidation in right lower lobe which could represent atelectasis or pneumonia. No left pleural effusion. No consolidation at posterior left lung base. Mild old anterior wedge compression fracture deformity of T8, stable since CT of thoracic spine of . What was then an acute or subacute fracture of T11 on 11/07/2017 is now an old compression fracture w ith moderate loss of height. Old compression fracture of L3 which was seen on prior plain radiograph of 09/29/2016. Other than adjacent surrounding free fluid, no gross abnormality of the pancreas, spleen, kidneys, or urinary bladder. Large amount of stool throughout colon, especially the cecum and rectum. Heavy atherosclerosis throughout abdominal aorta. Fusiform ectasia up to 2.5 cm of aorta. Clips in gallbladder fossa. Normal appendix. There is a new 7 x 4 x 2 cm sac of fluid in the right inguinal canal representing as cites fluid within a fat-containing inguinal hernia (no bowel loop). No small bowel dilation. No pneumoperitoneum. Cardiomegaly, dilation of intrahepatic segment of IVC, and dilation of all 3 hepatic veins.. IMPRESSION: 1) new small volume of ascites. 2.) Hepatic cirrhosis. 3) right lower lobe consolidation: Pneumonia versus atelectasis. 4) small right pleural effusion. 5) cardiomegaly and dilated hepatic veins suggestive of congestive heart failure. 6) multiple old compression fractures of thoracic spine and lumbar spine.
== END 2020-09-30 14:00 | disposition home or self-care (01) ==
LOC: ERS 11:14
DX: K59.00 Constipation, unspecified (principal); I50.9 Heart failure, unspecified; E78.5 Hyperlipidemia, unspecified; E78.00 Pure hypercholesterolemia, unspecified; I11.0 Hypertensive heart disease with heart failure; M10.9 Gout, unspecified; Z87.891 Personal history of nicotine dependence
CPT/HCPCS: 51701; 74177; 80053; 81003; 82550; 83690; 85025; Q9967

== ENCOUNTER 2020-11-06 16:13 | Inpatient (IN) | payer MEDICARE ==
[2020-11-06] MEDS ORDERED: Morphine 2 MG/ML VIAL ONE (17:18)
[2020-11-06 17:19] LABS: #Lymphocytes 0.9 thou/uL (1.20-3.40); #Neutrophils 8.5 thou/uL (1.40-6.50); %Eosinophils 0.4 % (0.0-10.0); %Monocytes 9.2 % (0.0-10.0); %Neutrophils 81.4 % (42.0-75.0); Hemoglobin 7.9 g/dL (14.0-18.0); Mean Corpuscular Hemoglobin 29.1 pg (27.0-31.0); Mean Corpuscular Volume 93.8 fL (78.0-98.0); Mean Platelet Volume 8.3 fL (7.4-10.4); Platelet Count 319 thou/uL (130-400); RBC Distribution Width 16.2 % (11.5-14.5); Red Blood Cell (RBC) Count 2.71 mill/uL (4.70-6.10); White Blood Cell (WBC) Count 10.4 thou/uL (4.8-10.8)
--- NOTE | 2020-11-06 17:22 | RAD ---
Right foot 3 views: 11/06/2020 COMPARISON: None HISTORY: Right foot pain for 2 hours FINDINGS: Mild degenerative change involves the first metatarsal-phalangeal joint. Vascular calcifica tion is noted adjacent to the base of the second metatarsal. No displaced fracture or evidence of dislocation is seen. There is mild enthesophyte formation at the origin of the plantar aponeurosis. IMPRESSION: Chronic appearing findings as described above. No acute fracture or evidence of dislocati on is seen. If this study was performed in the setting of trauma and symptoms persist, follow-up imaging in 7-10 days suggested.
[2020-11-06 17:48] LABS: CRP (Inflammatory) 5.39 mg/dL (= or < 0.5); Magnesium 2.5 mg/dL (1.6-2.6)
[2020-11-06 17:49] LABS: ALT (SGPT) 82 U/L (8-55); AST (SGOT) 100 U/L (5-34); Albumin 3.5 g/dL (3.4-4.8); Alkaline Phosphatase 217 U/L (40-110); Anion Gap 15 mmol/L (10-20); BUN (Urea Nitrogen) 92 mg/dL (8.4-25.7); Bilirubin, Total 0.5 mg/dL (0.2-1.2); Calc. Creatinine Clearance 0 mL/min (70-130); Calcium 7.9 mg/dL (7.8-10.44); Carbon Dioxide 25 mmol/L (23-31); Chloride 94 mmol/L (98-107); Globulin 3.3 g/dL (2.4-3.5); Glucose 106 mg/dL (83-110); Lipase 39 U/L (8-78); Potassium 3.9 mmol/L (3.5-5.1); Protein, Total 6.8 g/dL (5.8-8.1); Sodium 130 mmol/L (136-145)
--- NOTE | 2020-11-06 19:57 | CT ---
CT ANGIOGRAM OF THE ABDOMEN, PELVIS, AND BILATERAL LOWER EXTREMITIES - CT RUNOFF 11/06/20 COMPARISON: None. HISTORY: Right leg pain. TECHNIQUE: Axial CT imaging at 2.5 mm intervals from the lung bases through the feet with intravenous contrast using CT angiogram protocol. Coronal and sagittal 3D reformatted imaging obtained. FINDINGS: Within the right lower lobe on axial image 9, there is a hypodensity within a right lower lobe vascul ar structure which is suspicious for a right lower lobe distal pulmonary arterial embolism, not well characterized on this examination secondary to timing and field of view. There is dense partial conso lidation/collapse of the right lower lobe which could be related to pulmonary infarction, infectious pneumonitis, aspiration or malignancy. Follow-up imaging is required. There is a lesion adjacent to a markedly enlarged right atrium measuring 2.7 cm. This lesion is stabl e when compared to an abdominal CT performed 09/30/20. It demonstrates central low density and periphe ral calcification, likely on the basis of a mediastinal cyst with peripheral calcification. The heart is enlarged, which includes an enlarged right ventricle, right atrium and left atrium. Midl ine sternotomy wires are present. The patient appears status post mechanical valve procedure involvin g the aortic valve. The hepatic veins and the intrahepatic IVC are dilated suggesting poor cardiac output. The liver, sp debby, pancreas, adrenal glands, and kidneys demonstrate no acute findings. There is a subcentimeter h ypodense lesion within the lateral aspect of the upper pole right kidney and involving the posterior mid pole of the left kidney, too small to characterize. Nonspecific small volume free fluid is noted in the perihepatic region and infrahepatic region with s mall volume free fluid also noted within the pelvis cul-de-sac and extending into the inguinal canal on the right. The hepatic parenchyma demonstrates a peripheral irregular contour suggesting cirrhotic change. Cholecystectomy clips are present. Limited evaluation of the bowel without oral contrast pricila ears grossly unremarkable. The osseous structures of the abdomen/pelvis demonstrate multilevel lower lumbar spine degenerative c hange. There is degenerative change involving bilateral hips. Anterior wedge compression fractures ar e seen involving L3 unchanged when compared to an abdominal/pelvic CT performed 09/30/20. No abdominal or pelvic lymphadenopathy is seen. There is extensive atherosclerotic calcification of the abdominal aorta and its branches. There is se jessica stenosis with post stenotic dilatation involving the celiac axis at its origin. There is mild st enosis at the origin of the superior mesenteric artery. At least mild/moderate renal artery stenosis noted bilaterally, left greater than right. There is no aneurysmal dilatation of the abdominal aorta. There is a probable short segment calcified nonflow limiting dissection of the infrarenal abdominal a vivian on axial image 79, a stable finding when compared to the 09/30/20 exam. Bilateral common iliac arteries are heavily calcified but patent. There is prominent calcification in volving the bilateral internal iliac arteries. There is a focal nonflow limiting dissection at the or igin of the right external iliac artery, stable when compared to the 09/30/20 exam. LEFT LOWER EXTREMITY: There is scattered calcification involving the common femoral artery. Profunda femoral artery and sup erficial femoral artery are patent. There is multifocal calcification of the left superficial femoral artery with scattered areas of mild stenosis. There is a severe area of stenosis involving the left popliteal artery, best seen on axial image 337. The left anterior tibial artery is patent proximally and appears occluded in the mid calf region. Th e left posterior tibial artery is difficult to assess secondary to extensive calcification and is pro bably patent to the foot. Left peroneal artery is difficult to assess secondary to extensive calcific ation but appears patent to the ankle. RIGHT LOWER EXTREMITY: The right common femoral artery is patent and demonstrates atherosclerotic calcification. Mild stenos is is seen at the origin of a patent right profunda femoral artery. The right superficial femoral art deacon is patent and demonstrates no high grade stenosis. Moderate stenosis is seen involving the right popliteal artery. There is stenosis at the origin of the right anterior tibial artery. Right anterior tibial artery is heavily diseased and markedly calcified, limiting assessment. The right anterior tibial artery appear s patent to the ankle if not to the foot. The right posterior tibial artery is difficult to assess secondary to calcification but appears paten t to the foot and the right peroneal artery appears patent to the ankle. The osseous structures of bilateral lower extremities demonstrate no acute findings. There is small/moderate volume perisplenic free fluid extending into the left pericolic gutter. IMPRESSION: 1. Probable distal right basilar pulmonary embolism with dense opacity involving the right lower lobe which may signify infectious pneumonitis, aspiration, or pulmonary infarction. 2. Extensive atherosclerotic disease as detailed above which includes severe stenosis of the lef t popliteal artery. 3. Enlarged heart with cirrhotic appearance of the liver and dilation of the intrahepatic IVC an d hepatic vein suggesting poor cardiac output. 4. Small/moderate ascites. Results called to Dr. Gannon, 7 p.m., 11/06/20. POS: OFF
[2020-11-06 20:18] LABS: Lactic Acid 2.4 mmol/L (0.5-2.2)
[2020-11-06] MEDS ORDERED: Enoxaparin Sodium 80 MG/0.8 ML SYRINGE ONE (20:41)
[2020-11-06] MEDS ORDERED: Furosemide 20 MG/2 ML VIAL ONE (20:41)
[2020-11-07 00:08] VITALS: BMI 22.1
--- NOTE | 2020-11-07 00:20 | HP ---
REASON FOR ADMISSION: Right foot pain. HISTORY OF PRESENT ILLNESS: This is an 89-year-old male patient who is somewhat of a poor historian. He reports that he has been having pain in his right foot, which prompted him to come to the ER and he tells me that he has been having pain in the back that currently feels a bit better. He says that the pain is developing in the left foot. Reports ER physician did perform a CTA with runoff to rule out any arterial occlusion. Incidentally, this study showed possible pulmonary embolism. I did speak with his over the phone who reports that for the past month, the patient has not been feeling well. It seems mainly that he has been more short of breath on exertion and unable to perform his usual daily activity. Also, he has been very constipated and although he has been getting more of his Lasix, this has not been helping him. His appetite has been low and he has been having trouble getting around. I did review his records and his last admission to our hospital was in February of this year. He was admitted for progressively worsening lower extremity edema and shortness of breath on exertion and orthopnea. He was documented to be nonadherent with dietary modification including fluid restriction and sodium intake. He was diagnosed with decompensated heart failure, was started on aggressive diuresis. His Lasix was increased to 80 mg twice a day. PAST MEDICAL HISTORY: 1. Chronic diastolic heart failure. 2. High blood pressure. 3. Coronary artery disease. 4. Paroxysmal atrial fibrillation, not on anticoagulation because of history of anemia with unknown source of bleed. 5. Macrocytic anemia. 6. Hypothyroidism. 7. Seizure disorder. 8. High cholesterol. 9. Gout. 10. Documented fall risk, which was a contraindication for anticoagulation. 11. Obstructive sleep apnea, on CPAP. 12. 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 13. Lumbar laminectomy. 14. CABG. 15. Tonsillectomy. 16. Cholecystectomy. ALLERGIES: TO PENICILLIN. SOCIAL HISTORY: He quit smoking 35 years ago. Quit drinking alcohol 25 years ago. FAMILY HISTORY: Found to be noncontributory. REVIEW OF SYSTEMS: All systems reviewed and except the above-mentioned shortness of breath, constipation, weight loss, found to be negative. PHYSICAL EXAMINATION: GENERAL: He is awake, alert, oriented, does not appear in distress. VITAL SIGNS: His blood pressure is 109/46, heart rate of 92, saturating 100% on 2 L nasal cannula. HEENT: Head is nontraumatic, normocephalic. Pupils equal, reactive. Extraocular movements are intact. Nonicteric sclerae. Well-injected conjunctivae. Oral mucosa normal. Nasal mucosa normal. NECK: Supple. No adenopathy. No murmur. Thyroid is not palpable. Trachea is midline. No supraclavicular adenopathy. HEART: S1, S2 regular. No murmur. No gallop. No friction rubs. No displacement of PMI. LUNGS: Clear to auscultation. Poor inspiratory effort. ABDOMEN: Bowel sounds are positive. Nontender abdomen. No hepatosplenomegaly. EXTREMITIES: He does have 2+ pitting edema in bilateral extremities, more on the left than the right. NEUROLOGIC: Patient's cranial nerves appear to be intact. He is moving all 4 extremities. DIAGNOSTIC DATA: A CTA with runoff shows probable distal right basal pulmonary embolism with dense opacity involving the right lower lobe, which may signify infectious pneumonitis, aspiration, pulmonary infarction. Extensive atherosclerotic disease as detailed above which includes severe stenosis of the left popliteal artery. Enlarged heart with cirrhotic appearance of the liver and dilation of the intrahepatic IVC and hepatic veins suggesting poor cardiac output. Small/moderate ascites. ASSESSMENT AND PLAN: This is an 89-year-old male patient who is presenting with left foot pain, incidentally possibly has a PE. He does have worsening of his anemia. He has chronic anemia and in the past, refused to undergo investigation due to his advanced age. Pulmonary: Patient has a PE possibly. We will have him on Lovenox. He did receive initial dose in the ER. Tomorrow, we will schedule him for a CT of the chest, PE protocol. CAT scan also is noting pneumonitis, but will wait until he has the CAT scan of the chest done and then will go from there whether he needs to be covered with antibiotics or not. Currently, he is not behaving as if he has a pneumonia. Hematology: The patient is more anemic than his baseline. We will recheck his hemoglobin tomorrow. We will type and screen him in case he needs to be transfused. He did refuse workup for his anemia in the past. For his seizures, we will continue his current medications. In regard of the finding on the CTA with runoff, we will consult Vascular Surgery to guide us from that standpoint. In regard of his CHF, we will resume his Lasix. In regard to increased swelling of his lower extremities, we will do a Doppler of lower extremity. I did discuss the code status with him in detail and with his and they both informed me that he is to be a do not resuscitate since he has been not doing well for the past year and he does not want any heroic measures to be done. Job ID: [id number]
[2020-11-07] MEDS ORDERED: HYDROcodone/Acetaminophen 5/325 mg Tablet PO PRN (00:57)
[2020-11-07] MEDS: HYDROcodone/Acetaminophen 5/325 mg Tablet PO PRN (01:18)
[2020-11-07 04:39] LABS: #Neutrophils 8.4 thou/uL (1.40-6.50); %Basophils 0.2 % (0.0-1.0); %Eosinophils 0.3 % (0.0-10.0); %Lymphocytes 9.8 % (21.0-51.0); %Monocytes 9.7 % (0.0-10.0); %Neutrophils 80.1 % (42.0-75.0); Hemoglobin 7.8 g/dL (14.0-18.0); Mean Corpuscular Hemoglobin 28.9 pg (27.0-31.0); Mean Corpuscular Volume 93.3 fL (78.0-98.0); Mean Platelet Volume 8.2 fL (7.4-10.4); Platelet Count 276 thou/uL (130-400); RBC Distribution Width 16.3 % (11.5-14.5); White Blood Cell (WBC) Count 10.5 thou/uL (4.8-10.8)
[2020-11-07 05:04] LABS: Anion Gap 15 mmol/L (10-20); BUN (Urea Nitrogen) 86 mg/dL (8.4-25.7); Calc. Creatinine Clearance 29 mL/min (70-130); Calcium 8.1 mg/dL (7.8-10.44); Carbon Dioxide 26 mmol/L (23-31); Chloride 96 mmol/L (98-107); Glucose 104 mg/dL (83-110); Iron 15 ug/dL (65-175); Potassium 3.3 mmol/L (3.5-5.1); Sodium 134 mmol/L (136-145); Transferrin, Serum 275 mg/dL (163-344)
[2020-11-07] MEDS ORDERED: Furosemide 40 MG/4 ML VIAL SLOW IVP SCH (06:00)
[2020-11-07 06:26] LABS: SARS-CoV-2 MS2 Positive; SARS-CoV-2 N Gene Negative; SARS-CoV-2 S Gene Negative; SARS-CoV-2 by NAA Not Detected (NotDetected); SARS-CoV-2 orf1ab Negative
[2020-11-07] MEDS: Levothyroxine Sodium 125 MCG TAB PO SCH (06:46)
--- NOTE | 2020-11-07 08:07 | ULT ---
EXAM: Bilateral lower extremity venous ultrasound HISTORY: Bilateral lower extremity pitting edema COMPARISON: None TECHNIQUE: Multiplanar grayscale and color Doppler images were obtained in a bilateral lower extremit y venous ultrasound. Spectral analysis of the Doppler waveforms were performed. FINDINGS: The bilateral common femoral vein, profunda femoral veins, superficial femoral veins, and p opliteal veins are normal in appearance without visible thrombus. These vessels demonstrate normal compression, flow, and augmentation. The bilateral posterior tibial veins and greater saphenous veins are patent without evidence of throm bus. IMPRESSION: No evidence of DVT.
[2020-11-07] MEDS: Metoprolol Tartrate 25 MG TAB PO SCH ×2 (08:41→21:04)
--- NOTE | 2020-11-07 09:46 | CON ---
DATE OF CONSULTATION: HISTORY OF PRESENT ILLNESS: This is an 89-year-old gentleman who is now about 16 years following an aortic valve replacement with a bioprosthetic valve and a single-vessel bypass to an OM. He presented to the emergency room last night due to right foot pain. He underwent CT angiography demonstrating some vascular disease as you might expect in a patient his age, and was also noted to have a right pulmonary artery embolism noted in the lower lobe vascular tree. He also was noted to have some signs of cirrhosis. His regular medical problems are followed by Dr. Lai and include primarily treatment for swelling of his lower extremities, his abdomen and itching. He also has a history of gout and he suspected that his pain in his foot was related to his gout. He has a history of atrial fibrillation, untreated with anticoagulation due to a baseline anemia which has not been worked up in the past that I can tell. SOCIAL HISTORY: He lives with his . He is a nonsmoker, nondrinker for many years. PAST SURGICAL HISTORY: Includes aortic valve replacement, bypass, previous laminectomy, tonsillectomy, cholecystectomy. PHYSICAL EXAMINATION: GENERAL: He is a generally thin gentleman with a weight of 163 pounds, 6 feet tall. NECK: Bilateral radiated murmurs. He has no significant JVD in the sitting position. CARDIAC: Harsh systolic murmur across his precordium. LUNGS: Clear to auscultation. ABDOMEN: Protuberant with scratch juarez on his skin related to his itching problem. EXTREMITIES: He has strongly palpable femoral and popliteal pulses bilaterally and I do not appreciate any pedal pulses, but he has good Doppler signals in his anterior and posterior tibial arteries as well as reasonable Doppler signals in his dorsalis pedis and distal posterior tibial system. The feet are pink and warm without any sores. He has no edema in his legs at this time, but does have some scratch juarez. I have reviewed his CT angiogram and indeed he does have some vascular disease but primarily small vessel, most notably distally in his legs. I do not think his symptoms are ischemic rest pain and would not recommend any further treatment in this regard. The patient is now 16 years status post bioprosthetic valve replacement and most certainly has degenerative valve disease in this regard and I suspect he has at least moderate, if not worse, stenosis that may be contributing to his edema, although certainly his cirrhosis could be accounting for some of his abdominal swelling. Job ID: [id number]
--- NOTE | 2020-11-07 10:31 | RAD ---
CHEST 1 VIEW: Date: 11/07/2020 HISTORY: Pulmonary embolism. COMPARISON: CT examination prior day. FINDINGS: Round atelectasis right lung base is similar, as well as a chronic pleural thickening right hemithora x. Mild scarring left lung. No pneumothorax. Multiple midline sternotomy wires. Aortic valve prosthesis is noted, as well as dense aortic calcific ations. IMPRESSION: 1. Similar examination of chest with right lower lobe round atelectasis and pleural scarring. 2. Partially peripherally calcified pericardial cyst along the right atrium. POS: [facility]
--- NOTE | 2020-11-07 11:37 | CON ---
DATE OF CONSULTATION: HISTORY OF PRESENT ILLNESS: José Luis Giles is an 89-year-old elderly gentleman, who normally seeks care at the [facility] and sees a local primary care physician here, presented last night to the ER with significant lower extremity pain, particularly the right leg. He underwent an aorta runoff, which shows some peripheral vascular disease, but incidentally was found to have right distal basilar artery pulmonary embolism. Additionally, he had extensive bilateral lower lung infiltrates, which appears to be somewhat chronic. This morning, he is denying any chest pain or shortness of breath. He said he took Coumadin for many years, which is currently discontinued by his doctors from the [facility]. The medicine was given mainly for circulation-related problem. It is unlikely whether he has ever had PE or DVT in the past. Additionally, CT chest showed a dense right lower lobe infiltrate. Once again, it appears, in my mind, probably chronic in nature. He is a former smoker, quit smoking 20 years ago. On most days, he can walk a block without getting markedly short of breath. PAST MEDICAL HISTORY: Diastolic dysfunction; atrial fibrillation; hypertension; gout; dementia; apparently history of seizures; history of sleep apnea, it is unclear whether he is using a CPAP machine; COPD; abnormal chest x-ray. PREVIOUS SURGERIES: Cholecystectomy, tonsil, cardiac stents, previous CABG, aortic valve surgery. ALCOHOL: None. TOBACCO: A pack a day for 30 years, quit 10 years ago. ALLERGIES: PENICILLIN. HOME MEDICATIONS: Include: 1. Synthroid 125. 2. Dilantin. 3. Metolazone 2.5. 4. Torsemide 40. 5. Metoprolol 25. 6. Allopurinol 200. 7. Aspirin 243. 8. Aldactone 50. REVIEW OF SYSTEMS: Ten-point negative. PHYSICAL EXAMINATION: GENERAL: He is awake, alert, responsive, appears to be in no respiratory distress. EXTREMITIES: His lower extremities reveal not much swelling. VITAL SIGNS: Temperature 97, pulse 102, respiratory rate 16, sats 100% on 2 L, blood pressure 101/50. CHEST: Bilateral rhonchi, crackles. CARDIAC: Normal S1, S2. No gallops. NEUROLOGIC: He is awake, alert, responsive. LABORATORY DATA: White count 10,000, H and H 7 and 25, platelet count is normal. Creatinine 1.86, BUN is 86. ASSESSMENT AND PLAN: Acute on chronic respiratory failure, diastolic dysfunction, abnormal chest x-ray, right lower lobe pulmonary emboli, worsening azotemia, probably secondary to diuretics. His baseline creatinine is close to 1.1. His salguero serology is negative. I did a chest x-ray on him today, which shows scarring atelectatic changes in the right lung. Right lower lung pulmonary emboli on a CT, aorta runoff CTA. Abnormal chest x-ray with COPD, sleep apnea, renal failure. PLAN: I would discontinue all his diuretics for the time being. Surprisingly, CT scan showed evidence of cirrhosis. Clearly, pulmonary meek, he is asymptomatic. He needs to be switched over to oral anticoagulation depending upon his renal function status. He is going to require a minimum of 3 months of anticoagulation. This is an incidental pulmonary emboli finding while trying to assess his lower extremity pain. We will notify Dr. Gutierrez, who has seen him in the past. This is a 70-minute consultation note, 50 minutes direct patient care. Job ID: [id number]
[2020-11-07] MEDS: Phenytoin 50 MG Chewable Tablet PO SCH (15:41)
[2020-11-07] MEDS ORDERED: Potassium Chloride 20 MEQ TAB PO SCH (17:15)
[2020-11-07 18:07] LABS: Anion Gap 14 mmol/L (10-20); BUN (Urea Nitrogen) 74 mg/dL (8.4-25.7); Calc. Creatinine Clearance 35 mL/min (70-130); Calcium 8.4 mg/dL (7.8-10.44); Carbon Dioxide 30 mmol/L (23-31); Chloride 94 mmol/L (98-107); Glucose 126 mg/dL (83-110); Potassium 3.3 mmol/L (3.5-5.1); Sodium 135 mmol/L (136-145)
[2020-11-07] MEDS ORDERED: Enoxaparin Sodium 80 MG/0.8 ML SYRINGE SC SCH (21:00)
[2020-11-07] MEDS: Atorvastatin Calcium 40 MG TAB PO SCH (21:04)
--- NOTE | 2020-11-07 22:59 | PDOC.HOSPP ---
- Subjective Encounter Date: 11/07/20 Encounter Time: 16:30 Subjective: Patient seen and examined for pulmonary embolism with respiratory failure. Denies any chest pain. Symptomatically feeling somewhat better. - Objective Vital Signs & Weight: Vital Signs (12 hours) Temp Pulse Pulse Pulse Resp BP BP 11/07/20 21:00 98.1 F 94 18 11/07/20 19:02 86 16 11/07/20 16:20 97.9 F 89 17 11/07/20 15:22 89 87 109/55 L 103/51 L 11/07/20 13:43 100 16 11/07/20 11:45 97.9 F 93 20 BP Pulse Ox Pulse Ox Pulse Ox 11/07/20 21:00 110/55 L 99 11/07/20 19:02 100 11/07/20 16:20 106/52 L 98 11/07/20 15:22 96 95 11/07/20 13:43 11/07/20 11:45 107/55 L 97 Weight Weight 163 lb 1.6 oz I&O: 11/06/20 11/07/20 11/08/20 06:59 06:59 06:59 Intake Total 480 Output Total 19990 Balance -1520 -1850 Result Diagrams: 11/07/20 04:11 11/07/20 17:30 Additional Labs: Abnormal Lab Results - Last 48 hrs 11/06/20 17:00: Sodium 130 L, Chloride 94 L, BUN 92 H, Creatinine 2.07 H, AST 100 H, ALT 82 H, Alkaline Phosphatase 217 H, Albumin/Globulin Ratio 1.1 L 11/06/20 17:00: C-Reactive Protein 5.39 H 11/06/20 17:00: RBC 2.71 L, Hgb 7.9 L, Hct 25.4 L, MCHC 31.0 L, RDW 16.2 H, Neutrophils % 81.4 H, Lymphocytes % 9.0 L, Neutrophils # 8.5 H, Lymphocytes # 0.9 L, Monocytes # 1.0 H 11/06/20 17:00: Lactic Acid 2.6 H 11/06/20 17:00: B-Natriuretic Peptide 551.4 H 11/06/20 19:52: Lactic Acid 2.4 H 11/07/20 04:11: RBC 2.70 L, Hgb 7.8 L, Hct 25.2 L, MCHC 31.0 L, RDW 16.3 H, Neutrophils % 80.1 H, Lymphocytes % 9.8 L, Neutrophils # 8.4 H, Lymphocytes # 1.0 L, Monocytes # 1.0 H 11/07/20 04:12: Sodium 134 L, Potassium 3.3 L, Chloride 96 L, BUN 86 H, Creatinine 1.86 H, Iron 15 L 11/07/20 17:30: Sodium 135 L, Potassium 3.3 L, Chloride 94 L, BUN 74 H, Creatinine 1.51 H Radiology Reviewed by me: Yes (Chest x-rayNegative for infiltrate) EKG Reviewed by me: Yes (Sinus rhythm on telemetry) Hospitalist ROS - Review of Systems Constitutional: reports: weakness. denies: fever, chills, sweats, malaise, other Respiratory: reports: SOB with excertion. denies: cough, dry, shortness of breath, hemoptysis, pleuritic pain, sputum, wheezing, other - Medication Medications: Active Medications Generic Name Dose Route Start Last Admin Trade Name Freq PRN Reason Stop Dose Admin Hydrocodone Bitart/Acetaminophen 2 tab 11/07/20 00:57 11/07/20 01:18 Hydrocodone/Acetaminophen 5/325 Mg Tablet PO 2 tab Q4H PRN Administration Severe Pain (7-10) Albuterol/Ipratropium 3 ml 11/07/20 13:00 11/07/20 19:02 Ipratropium/Albuterol Sulfate 3 Ml Neb NEB 3 ml [id number] SEAN Administration Atorvastatin Calcium 80 mg 11/07/20 21:00 11/07/20 21:04 Atorvastatin Calcium 40 Mg Tab PO 80 mg HS SEAN Administration Enoxaparin Sodium 80 mg 11/07/20 21:00 11/07/20 21:04 Enoxaparin Sodium 80 Mg/0.8 Ml Syringe SC 80 mg 2100 SEAN Administration Levothyroxine Sodium 125 mcg 11/07/20 06:00 11/07/20 06:46 Levothyroxine Sodium 125 Mcg Tab PO 125 mcg 0600 SEAN Administration Metoprolol Tartrate 25 mg 11/07/20 09:00 11/07/20 21:04 Metoprolol Tartrate 25 Mg Tab PO 25 mg BID SEAN Administration Phenytoin Sodium 50 mg 11/07/20 15:00 11/07/20 15:41 Phenytoin 50 Mg Chewable Tablet PO 50 mg Q2D SEAN Administration Phenytoin Sodium 200 mg 11/07/20 21:00 11/07/20 21:05 Phenytoin Sodium Extended 100 Mg Cap PO 200 mg QPM SEAN Administration Phenytoin Sodium 300 mg 11/07/20 09:00 11/07/20 08:40 Phenytoin Sodium Extended 100 Mg Cap PO 300 mg DAILY SEAN Administration - Exam General Appearance: ill appearing Neck: supple, symmetric, no thyromegaly, no carotid bruit Heart: RRR, no gallops, no rubs, normal peripheral pulses Respiratory: no wheezes, no rales, normal chest expansion, rhonchi Gastrointestinal: soft, non-tender, non-distended, normal bowel sounds Extremities: no cyanosis, no clubbing, no edema Extremities - other findings: No calf tenderness Neurological: no new deficit Psychiatric: normal affect, A&O x 3 Psychiatric - other findings: Poor historian Hosp A/P - Plan DVT proph w/lovenox Acute hypoxic respiratory failure Acute pulmonary embolism Chronic diastolic heart failure Acute kidney injury on CKD stage III Hyponatremia/hypokalemia Lactic acidosis probably due to intravascular volume depletion Extensive peripheral vascular disease with severe stenosis of the left popliteal artery Abnormal LFTs probably due to passive hepatic congestion Seizure disorder Questionable cirrhosis with ascites Plan: Patient started on Lovenox for pulmonary embolism. Hold diuretics due to acute kidney injury. Replace potassium. Continue beta-blockers. Continue home CPAP. Strict input and output. Recheck LFTs with labs in a.m.
[2020-11-08 04:32] LABS: #Eosinphils 0.1 thou/uL (0.0-0.7); #Monocytes 0.9 thou/uL (0.11-0.59); #Neutrophils 8.3 thou/uL (1.40-6.50); %Basophils 0.1 % (0.0-1.0); %Eosinophils 0.7 % (0.0-10.0); %Monocytes 8.4 % (0.0-10.0); %Neutrophils 80.8 % (42.0-75.0); Hemoglobin 7.5 g/dL (14.0-18.0); Mean Corpuscular Hemoglobin 30.1 pg (27.0-31.0); Mean Corpuscular Volume 94.3 fL (78.0-98.0); Mean Platelet Volume 7.8 fL (7.4-10.4); Platelet Count 234 thou/uL (130-400); RBC Distribution Width 16.3 % (11.5-14.5); White Blood Cell (WBC) Count 10.3 thou/uL (4.8-10.8)
[2020-11-08 04:54] LABS: ALT (SGPT) 66 U/L (8-55); AST (SGOT) 54 U/L (5-34); Albumin 3.2 g/dL (3.4-4.8); Alkaline Phosphatase 196 U/L (40-110); Anion Gap 12 mmol/L (10-20); BUN (Urea Nitrogen) 60 mg/dL (8.4-25.7); Bilirubin, Total 0.6 mg/dL (0.2-1.2); Calc. Creatinine Clearance 43 mL/min (70-130); Carbon Dioxide 29 mmol/L (23-31); Chloride 98 mmol/L (98-107); Globulin 3.2 g/dL (2.4-3.5); Glucose 114 mg/dL (83-110); Magnesium 2.4 mg/dL (1.6-2.6); Phosphorus 3.4 mg/dL (2.3-4.7); Potassium 3.3 mmol/L (3.5-5.1); Protein, Total 6.4 g/dL (5.8-8.1); Sodium 136 mmol/L (136-145)
[2020-11-08] MEDS: Levothyroxine Sodium 125 MCG TAB PO SCH (05:09)
[2020-11-08] MEDS: Loratadine 10 MG TAB PO SCH (08:37)
[2020-11-08] MEDS: Metoprolol Tartrate 25 MG TAB PO SCH ×2 (08:37→20:36)
[2020-11-08] MEDS ORDERED: Potassium Chloride 20 MEQ TAB PO SCH (09:15)
[2020-11-08] MEDS: Potassium Chloride 20 MEQ TAB PO SCH ×2 (11:02→17:25)
--- NOTE | 2020-11-08 11:43 | PRG ---
DATE OF SERVICE: 11/08/2020 SUBJECTIVE: Case was reviewed. The patient has no acute complaints today. OBJECTIVE: VITAL SIGNS: Temperature 98.3, pulse 96, respirations 20, saturation 98% on 2 L, blood pressure 106/52. HEENT: Unremarkable. NECK: No adenopathy or JVD. LUNGS: Clear anteriorly. CARDIAC: S1 and S2. Muffled by 3/6 systolic murmur. ABDOMEN: Soft, nontender. EXTREMITIES: No edema. LABORATORY DATA: White blood cell count 10.3, hematocrit 23.6, and platelet count 234. Sodium 136, potassium 3.3, chloride 98, CO2 of 29, BUN 60, creatinine 1.2, and glucose 114. ASSESSMENT: 1. Pulmonary embolism. 2. History of bioprosthetic heart valve. 3. Anemia, which is severe. PLAN: This is a difficult situation. The issue of anticoagulation is complex most notably because of his age and anemia. He has been taking anticoagulation for the last 40 years, up until about six months ago when [facility]. The patient says this was done secondary to his anemia. My recommendation would be to weigh the risks and benefits versus anticoagulation. This need to be discussed with his primary care doctor. If it is deemed too risky to anticoagulate then I would place an IVC filter and be done with it. As they will follow his H and H closely, then I would recommend starting him back on warfarin as that is easiest to reverse if he has issues down the road. No further recommendations at this time will be available as needed. Job ID: [id number]
[2020-11-08 17:01] LABS: INR-International Normal Ratio 1.1; Prothrombin Time 14.8 sec (12.0-14.7)
[2020-11-08] MEDS ORDERED: Warfarin Sodium 5 MG TAB PO SCH (17:15)
--- NOTE | 2020-11-08 18:10 | PDOC.HOSPP ---
- Subjective Encounter Date: 11/08/20 Encounter Time: 15:00 Subjective: Patient seen and examined for respiratory failure due to pulmonary embolism. Overall feels better. Denies any chest pain or shortness of breath. No cough, nausea or fever reported. - Objective Vital Signs & Weight: Vital Signs (12 hours) Temp Pulse Resp BP Pulse Ox 11/08/20 15:21 97.4 F L 103 H 16 111/56 L 97 11/08/20 14:24 99 14 100 11/08/20 11:02 98.3 F 96 20 106/52 L 98 11/08/20 08:35 98 F 102 H 16 110/53 L 100 11/08/20 07:47 86 18 100 Weight Weight 159 lb 8 oz I&O: 11/07/20 11/08/20 11/09/20 06:59 06:59 06:59 Intake Total 480 480 960 Output Total 1999 1330 650 Balance -1520 -2070 310 Result Diagrams: 11/08/20 04:13 11/08/20 04:13 Additional Labs: Abnormal Lab Results - Last 48 hrs 11/06/20 19:52: Lactic Acid 2.4 H 11/07/20 04:11: RBC 2.70 L, Hgb 7.8 L, Hct 25.2 L, MCHC 31.0 L, RDW 16.3 H, Neutrophils % 80.1 H, Lymphocytes % 9.8 L, Neutrophils # 8.4 H, Lymphocytes # 1.0 L, Monocytes # 1.0 H 11/07/20 04:12: Sodium 134 L, Potassium 3.3 L, Chloride 96 L, BUN 86 H, Creatinine 1.86 H, Iron 15 L 11/07/20 17:30: Sodium 135 L, Potassium 3.3 L, Chloride 94 L, BUN 74 H, Creatinine 1.51 H 11/08/20 04:13: Potassium 3.3 L, BUN 60 H, AST 54 H, ALT 66 H, Alkaline Phosphatase 196 H, Albumin 3.2 L, Albumin/Globulin Ratio 1.0 L 11/08/20 04:13: RBC 2.50 L, Hgb 7.5 L, Hct 23.6 L, RDW 16.3 H, Neutrophils % 80.8 H, Lymphocytes % 10.0 L, Neutrophils # 8.3 H, Lymphocytes # 1.0 L, Monocytes # 0.9 H 11/08/20 16:40: PT 14.8 H EKG Reviewed by me: Yes (Atrial fibrillation on telemetry) Hospitalist ROS - Review of Systems Respiratory: reports: SOB with excertion. denies: cough, dry, shortness of br eath, hemoptysis, pleuritic pain, sputum, wheezing, other Cardiovascular: denies: chest pain, palpitations, orthopnea, paroxysmal noc. dyspnea, edema, light headedness, other - Medication Medications: Active Medications Generic Name Dose Route Start Last Admin Trade Name Freq PRN Reason Stop Dose Admin Hydrocodone Bitart/Acetaminophen 1 tab 11/07/20 00:57 11/08/20 17:25 Hydrocodone/Acetaminophen 5/325 Mg Tablet PO 1 tab Q4H PRN Administration Moderate Pain (4-6) Hydrocodone Bitart/Acetaminophen 2 tab 11/07/20 00:57 11/07/20 01:18 Hydrocodone/Acetaminophen 5/325 Mg Tablet PO 2 tab Q4H PRN Administration Severe Pain (7-10) Albuterol/Ipratropium 3 ml 11/07/20 13:00 11/08/20 14:24 Ipratropium/Albuterol Sulfate 3 Ml Neb NEB 3 ml [id number] SEAN Administration Atorvastatin Calcium 80 mg 11/07/20 21:00 11/07/20 21:04 Atorvastatin Calcium 40 Mg Tab PO 80 mg HS SEAN Administration Levothyroxine Sodium 125 mcg 11/07/20 06:00 11/08/20 05:09 Levothyroxine Sodium 125 Mcg Tab PO 125 mcg 0600 SEAN Administration Loratadine 10 mg 11/08/20 09:00 11/08/20 08:37 Loratadine 10 Mg Tab PO 10 mg DAILY SEAN Administration Metoprolol Tartrate 25 mg 11/07/20 09:00 11/08/20 08:37 Metoprolol Tartrate 25 Mg Tab PO 25 mg BID SEAN Administration Phenytoin Sodium 50 mg 11/07/20 15:00 11/07/20 15:41 Phenytoin 50 Mg Chewable Tablet PO 50 mg Q2D SEAN Administration Phenytoin Sodium 200 mg 11/07/20 21:00 11/07/20 21:05 Phenytoin Sodium Extended 100 Mg Cap PO 200 mg QPM SEAN Administration Phenytoin Sodium 300 mg 11/07/20 09:00 11/08/20 08:37 Phenytoin Sodium Extended 100 Mg Cap PO 300 mg DAILY SEAN Administration Warfarin Sodium 5 mg 11/08/20 17:15 11/08/20 17:27 Warfarin Sodium 5 Mg Tab PO 11/08/20 21:00 5 mg NOW SEAN Administration - Exam General Appearance: NAD Neck: supple, no JVD Heart: no gallops, no rubs Respiratory: no wheezes, no rales Gastrointestinal: soft, non-tender, normal bowel sounds Extremities: no cyanosis, no clubbing Neurological: no new deficit Psychiatric: normal affect, A&O x 3 Hosp A/P - Plan DVT proph w/lovenox Acute hypoxic respiratory failurePOA Acute pulmonary embolism Chronic diastolic heart failure Acute kidney injury on CKD stage IIIimproving Hyponatremia/hypokalemia Lactic acidosis probably due to intravascular volume depletion Extensive peripheral vascular disease with severe stenosis of the left popliteal artery Abnormal LFTs probably due to passive hepatic congestionimproving Seizure disorder Questionable cirrhosis with ascites Plan: Renal and liver function improving. Will change Lovenox to 50 mg twice daily due to significant anemia with hemoglobin of 7.5. Patient denies any hematochezia or melena. 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 Tomás Waite who recommended hematology consultation due to severe anemia as well as initiation of warfarin. Patient had extensive GI work-up last year. Patient and the family understand the risk associated with warfarin. Will monitor PT/INR closely. ContinueLipitor, metoprolol, levothyroxine and other medications as above. Replace potassium. A.m. labs
--- NOTE | 2020-11-08 18:48 | RAD ---
LEFT HIP TWO VIEW: 11/08/20 HISTORY: Pain. COMPARISON: Reference is made to a CT of the abdomen and pelvis with runoff to the feet from 10/22/20. FINDINGS: No acute displaced fracture or malalignment. Moderate left acetabular osteophyte formation and subcor tical cyst. Phleboliths in the pelvis. Surgical clips along the left thigh. IMPRESSION: No acute osseous abnormality. Moderate degenerative change left hip. POS: HOME
[2020-11-08] MEDS: Atorvastatin Calcium 40 MG TAB PO SCH (20:36)
[2020-11-08] MEDS: Enoxaparin Sodium 60 MG/0.6 ML SYRINGE SC SCH (20:36)
[2020-11-09] MEDS: HYDROcodone/Acetaminophen 5/325 mg Tablet PO PRN (00:02)
--- NOTE | 2020-11-09 02:54 | CON ---
DATE OF CONSULTATION: REASON FOR CONSULTATION: Anemia. HISTORY OF PRESENT ILLNESS: This is an 89-year-old male who was admitted with lower extremity pain. CT scan of the abdomen and pelvis and bilateral lower extremity, CT runoff was reported as probable distal right basilar pulmonary embolism. It also showed dense opacity involving the right lower lobe. It was felt that the patient likely has pulmonary embolus. He has been started on Lovenox and there is considerable discussion regarding how to anticoagulate him. Admitting CBC showed WBC of 10.4, hemoglobin 7.9, and platelet count of 319,000. MCV was 93.8, though in the past he has MCV up to 104.0. Most recent CBC from earlier today showed hemoglobin of 7.5 g. Today, he was complaining of severe pain in the left hip that started last night. He denies of bleeding from any site. Looking into BiOxyDyn, the patient has been anemic since March 2018, and most of his hemoglobins have been around 9 to 10 g. Chemistry profile showed normal serum creatinine of 1.24, though in the past his creatinine has been elevated. Liver enzymes have been mildly abnormal with AST 54, ALT 66, and alkaline phosphatase 196. The alkaline phosphatase has been elevated off and on since 2014. His ferritin was 52.9 on 11/07/2020. B12 was 1335 in December this year and folic acid was 15.5 in December 2019. The patient had a normal EGD by Dr. Valadez in March 2019. At that time, colonoscopy was declined by the patient. HOME MEDICATIONS: Include: 1. Synthroid. 2. Dilantin. 3. Metolazone. 4. Torsemide. 5. Metoprolol. 6. Allopurinol. 7. Aspirin. 8. Aldactone. PAST HISTORY: Positive findings include chronic diastolic heart failure, hypertension, coronary artery disease, paroxysmal atrial fibrillation. The anticoagulation with Coumadin was recently discontinued for suspected known site of bleeding that could have caused his anemia and also for fall risk, hypothyroidism, gout, obstructive sleep apnea, aortic valve replacement with bovine valve, lumbar laminectomy, coronary artery bypass graft surgery, and cholecystectomy. DRUGS WITH ADVERSE EFFECTS: Penicillin. PERSONAL FAMILY AND SOCIAL HISTORY: The patient lives with his . He is a previous smoker, quitting over 10 years ago. He does not drink. REVIEW OF SYSTEMS: Has been said in the history of present illness. He also gives history of constipation, shortness of breath, and weight loss. PHYSICAL EXAMINATION: GENERAL: The patient is alert and oriented. He is uncomfortable at the time of examination because of left hip pain. VITAL SIGNS: Temperature 97.5, pulse 110, respirations 16, and blood pressure 130/63. HEENT: Unremarkable. There is no peripheral lymphadenopathy in cervical, supraclavicular, axillary, or inguinal area. CHEST: Clear to percussion and auscultation. HEART: S1 and S2. ABDOMEN: Soft. Liver seems to be palpable, but this could be related more to very lax abdominal wall. The spleen was not palpable. Bowel sounds normal. EXTREMITIES: 1+ bipedal edema. LABORATORY AND IMAGING STUDIES: Have already been mentioned. CT scan of the abdomen had showed irregular liver borders suggestive of cirrhosis. ASSESSMENT AND RECOMMENDATIONS: This patient has chronic anemia, which has become worse recently. His white cells and platelets are normal. He had upper GI endoscopy before, and colonoscopy has not been done. I have ordered additional studies such as retic count, ferritin, and serum protein electrophoresis. He might need colonoscopy and if no other cause for anemia is found, bone marrow will have to be considered. I am not sure how aggressive one should be. We will follow him along and suggested additional studies in the future. Thanks very much for allowing me to participate in this patient's care. Job ID: [id number]
[2020-11-09 04:39] LABS: #Eosinphils 0.1 thou/uL (0.0-0.7); #Lymphocytes 1.1 thou/uL (1.20-3.40); #Monocytes 0.8 thou/uL (0.11-0.59); #Neutrophils 7.9 thou/uL (1.40-6.50); %Basophils 0.2 % (0.0-1.0); %Eosinophils 1.5 % (0.0-10.0); %Lymphocytes 11.1 % (21.0-51.0); %Monocytes 8.2 % (0.0-10.0); Hemoglobin 7.6 g/dL (14.0-18.0); Mean Corpuscular HGB CONC 30.2 g/dL (32.0-36.0); Mean Corpuscular Hemoglobin 28.4 pg (27.0-31.0); Mean Corpuscular Volume 94.1 fL (78.0-98.0); Platelet Count 216 thou/uL (130-400); RBC Distribution Width 16.7 % (11.5-14.5); Red Blood Cell (RBC) Count 2.66 mill/uL (4.70-6.10)
[2020-11-09 04:50] LABS: INR-International Normal Ratio 1.1; Prothrombin Time 14.8 sec (12.0-14.7)
[2020-11-09 04:55] LABS: Lactic Acid 1.6 mmol/L (0.5-2.2)
[2020-11-09 05:07] LABS: ALT (SGPT) 49 U/L (8-55); AST (SGOT) 33 U/L (5-34); Albumin 3.4 g/dL (3.4-4.8); Alkaline Phosphatase 206 U/L (40-110); Anion Gap 14 mmol/L (10-20); BUN (Urea Nitrogen) 43 mg/dL (8.4-25.7); Bilirubin, Total 0.7 mg/dL (0.2-1.2); Calc. Creatinine Clearance 45 mL/min (70-130); Calcium 7.9 mg/dL (7.8-10.44); Carbon Dioxide 27 mmol/L (23-31); Chloride 98 mmol/L (98-107); Globulin 3.2 g/dL (2.4-3.5); Glucose 110 mg/dL (83-110); Iron Binding Capacity, Total 335 mcg/dL (261-462); Magnesium 2.4 mg/dL (1.6-2.6); Phosphorus 2.5 mg/dL (2.3-4.7); Potassium 4.3 mmol/L (3.5-5.1); Protein, Total 6.6 g/dL (5.8-8.1); Sodium 135 mmol/L (136-145)
[2020-11-09 05:28] LABS: Ferritin 53.72 ng/mL (22-322)
[2020-11-09] MEDS: Levothyroxine Sodium 125 MCG TAB PO SCH (05:39)
[2020-11-09] MEDS: Enoxaparin Sodium 60 MG/0.6 ML SYRINGE SC SCH ×2 (09:25→21:02)
[2020-11-09] MEDS: Metoprolol Tartrate 25 MG TAB PO SCH ×2 (09:28→21:01)
[2020-11-09] MEDS: Loratadine 10 MG TAB PO SCH (09:28)
--- NOTE | 2020-11-09 16:28 | EKG ---
Test Reason : Blood Pressure : / mmHG Vent. Rate : 092 BPM Atrial Rate : 085 BPM P-R Int : 000 ms QRS Dur : 134 ms QT Int : 392 ms P-R-T Axes : 000 -67 098 degrees QTc Int : 484 ms Atrial fibrillation Left axis deviation Left ventricular hypertrophy with QRS widening Abnormal QRS-T angle, consider primary T wave abnormality Abnormal ECG Baseline Artifact Present Confirmed by DAO Haas, CALLIE ([id number]), newspaper editor managing KATHI BECKMAN ([id number]) on 11/09/2020 4:28:11 PM Referred By: Confirmed By:CALLIE DC M.D.
[2020-11-09] MEDS: Warfarin Sodium 5 MG TAB PO SCH (16:45)
[2020-11-09] MEDS: Phenytoin 50 MG Chewable Tablet PO SCH (16:45)
--- NOTE | 2020-11-09 17:34 | PDOC.HOSPP ---
- Subjective Encounter Date: 11/09/20 Encounter Time: 14:00 Subjective: Patient seen and examined for pulmonary embolism/respiratory failure. Denies any new complaints. Intermittent confusion. No chest pain or palpitation. Denies any nausea or vomiting. - Objective Vital Signs & Weight: Vital Signs (12 hours) Temp Pulse Pulse Pulse Resp BP BP 11/09/20 16:49 98.4 F 105 H 18 11/09/20 12:55 98 15 11/09/20 12:45 105 H 18 11/09/20 10:41 115 H 107 H 115/55 L 99/54 L 11/09/20 07:23 98.3 F 109 H 18 11/09/20 07:20 11/09/20 07:00 92 17 BP Pulse Ox Pulse Ox Pulse Ox 11/09/20 16:49 111/52 L 100 11/09/20 12:55 11/09/20 12:45 109/55 L 96 11/09/20 10:41 93 L 97 11/09/20 07:23 122/56 L 100 11/09/20 07:20 100 11/09/20 07:00 Weight Weight 158 lb 4.8 oz I&O: 11/08/20 11/09/20 11/10/20 06:59 06:59 06:59 Intake Total 480 1680 Output Total 2550 1475 Balance -2069 Result Diagrams: 11/09/20 04:07 11/09/20 04:07 Additional Labs: Abnormal Lab Results - Last 48 hrs 11/07/20 17:30: Sodium 135 L, Potassium 3.3 L, Chloride 94 L, BUN 74 H, Creatinine 1.51 H 11/08/20 04:13: Potassium 3.3 L, BUN 60 H, AST 54 H, ALT 66 H, Alkaline Phosphatase 196 H, Albumin 3.2 L, Albumin/Globulin Ratio 1.0 L 11/08/20 04:13: RBC 2.50 L, Hgb 7.5 L, Hct 23.6 L, RDW 16.3 H, Neutrophils % 80.8 H, Lymphocytes % 10.0 L, Neutrophils # 8.3 H, Lymphocytes # 1.0 L, Monocytes # 0.9 H 11/08/20 16:40: PT 14.8 H 11/09/20 04:07: Sodium 135 L, BUN 43 H, Alkaline Phosphatase 206 H, Albumin/Globulin Ratio 1.1 L 11/09/20 04:07: PT 14.8 H 11/09/20 04:07: Lactate Dehydrogenase 269 H 11/09/20 04:07: Vitamin B12 1733 H 11/09/20 04:07: RBC 2.66 L, Hgb 7.6 L, Hct 25.0 L, MCHC 30.2 L, RDW 16.7 H, Neutrophils % 79.0 H, Lymphocytes % 11.1 L, Neutrophils # 7.9 H, Lymphocytes # 1.1 L, Monocytes # 0.8 H 11/09/20 04:07: Retic Count 2.0 H Radiology Reviewed by me: Yes (Hip x-raynegative for fractures) EKG Reviewed by me: Yes (Atrial fibrillation on telemetry) Hospitalist ROS - Review of Systems Cardiovascular: denies: chest pain, palpitations, orthopnea, paroxysmal noc. dyspnea, edema, light headedness, other Gastrointestinal: denies: nausea, vomiting, abdominal pain, diarrhea, constipation, melena, hematochezia, other - Medication Medications: Active Medications Generic Name Dose Route Start Last Admin Trade Name Freq PRN Reason Stop Dose Admin Hydrocodone Bitart/Acetaminophen 1 tab 11/07/20 00:57 11/08/20 17:25 Hydrocodone/Acetaminophen 5/325 Mg Tablet PO 1 tab Q4H PRN Administration Moderate Pain (4-6) Hydrocodone Bitart/Acetaminophen 2 tab 11/07/20 00:57 11/09/20 00:02 Hydrocodone/Acetaminophen 5/325 Mg Tablet PO 2 tab Q4H PRN Administration Severe Pain (7-10) Albuterol/Ipratropium 3 ml 11/07/20 13:00 11/09/20 12:55 Ipratropium/Albuterol Sulfate 3 Ml Neb NEB 3 ml [id number] SEAN Administration Atorvastatin Calcium 80 mg 11/07/20 21:00 11/08/20 20:36 Atorvastatin Calcium 40 Mg Tab PO 80 mg HS SEAN Administration Enoxaparin Sodium 50 mg 11/08/20 21:00 11/09/20 09:25 Enoxaparin Sodium 60 Mg/0.6 Ml Syringe SC 50 mg 0900,2100 SEAN Administration Levothyroxine Sodium 125 mcg 11/07/20 06:00 11/09/20 05:39 Levothyroxine Sodium 125 Mcg Tab PO 125 mcg 0600 SEAN Administration Loratadine 10 mg 11/08/20 09:00 11/09/20 09:28 Loratadine 10 Mg Tab PO 10 mg DAILY SEAN Administration Metoprolol Tartrate 25 mg 11/07/20 09:00 11/09/20 09:28 Metoprolol Tartrate 25 Mg Tab PO 25 mg BID SEAN Administration Phenytoin Sodium 50 mg 11/07/20 15:00 11/09/20 16:45 Phenytoin 50 Mg Chewable Tablet PO 50 mg Q2D SEAN Administration Phenytoin Sodium 200 mg 11/07/20 21:00 11/09/20 09:27 Phenytoin Sodium Extended 100 Mg Cap PO Not Given QPM SEAN Phenytoin Sodium 300 mg 11/07/20 09:00 11/09/20 09:29 Phenytoin Sodium Extended 100 Mg Cap PO 300 mg DAILY SEAN Administration Warfarin Sodium 5 mg 11/09/20 17:00 11/09/20 16:45 Warfarin Sodium 5 Mg Tab PO 5 mg 1700 SEAN Administration - Exam General Appearance: NAD Neck: supple, no JVD Heart: RRR, no gallops Respiratory: no wheezes, no ronchi Gastrointestinal: soft, non-tender, normal bowel sounds Extremities: no cyanosis Skin: normal turgor Neurological: no new deficit Hosp A/P - Plan DVT proph w/lovenox Acute hypoxic respiratory failure Acute pulmonary embolism Chronic diastolic heart failure Acute kidney injury on CKD stage III Hyponatremia/hypokalemia Lactic acidosis probably due to intravascular volume depletion Extensive peripheral vascular disease with 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 Due to anemia patient was started on low-dose Lovenox instead of 1 mg/kg twice daily. Hematology input appreciated. INR 1.1 today. Continue to monitor PT/INR. LFTs improving. Case discussed with the spouse. Family refusing aggressive measures. Start diuretics in a.m. Recheck labs in a.m.
[2020-11-09] MEDS ORDERED: traMADol HCl 50 MG TAB PO SCH (20:45)
[2020-11-09] MEDS: Atorvastatin Calcium 40 MG TAB PO SCH (21:01)
--- NOTE | 2020-11-09 23:32 | PRG ---
DATE OF SERVICE: 11/09/2020 CBC today showed WBC of 10,000 with hemoglobin of 7.6, and platelet count of 216,000. Differential showed 79% neutrophils, 11.1% lymphocytes. Reticulocyte count was 2%. Chemistry profile showed creatinine of 1.16 with BUN of 43. Alkaline phosphatase was elevated at 206. ALT and alkaline phosphatase have returned to normal. LDH is elevated. Folic acid 11.5, B12 of 1733. Serum iron was 15 on November 07. TIBC is towards high side at 335 and ferritin level is 53.72, which is towards the low side. Relatively low ferritin with relatively high TIBC and low serum iron favors the diagnosis of Iron deficiency anemia. Job ID: [id number] [facility]
[2020-11-10 04:26] LABS: #Eosinphils 0.1 thou/uL (0.0-0.7); #Lymphocytes 1.2 thou/uL (1.20-3.40); #Monocytes 0.9 thou/uL (0.11-0.59); #Neutrophils 7.7 thou/uL (1.40-6.50); %Basophils 0.3 % (0.0-1.0); %Eosinophils 1.1 % (0.0-10.0); %Lymphocytes 12.3 % (21.0-51.0); %Monocytes 8.6 % (0.0-10.0); %Neutrophils 77.8 % (42.0-75.0); Hemoglobin 7.5 g/dL (14.0-18.0); Mean Corpuscular HGB CONC 31.6 g/dL (32.0-36.0); Mean Corpuscular Hemoglobin 29.7 pg (27.0-31.0); Mean Corpuscular Volume 94.1 fL (78.0-98.0); Mean Platelet Volume 8.4 fL (7.4-10.4); Platelet Count 210 thou/uL (130-400); Red Blood Cell (RBC) Count 2.54 mill/uL (4.70-6.10); White Blood Cell (WBC) Count 9.9 thou/uL (4.8-10.8)
[2020-11-10 04:30] LABS: INR-International Normal Ratio 1.2; Prothrombin Time 15.2 sec (12.0-14.7)
[2020-11-10 04:51] LABS: Anion Gap 15 mmol/L (10-20); BUN (Urea Nitrogen) 34 mg/dL (8.4-25.7); Calc. Creatinine Clearance 51 mL/min (70-130); Carbon Dioxide 26 mmol/L (23-31); Chloride 97 mmol/L (98-107); Glucose 111 mg/dL (83-110); Magnesium 2.4 mg/dL (1.6-2.6); Potassium 3.9 mmol/L (3.5-5.1); Sodium 134 mmol/L (136-145)
[2020-11-10] MEDS: Levothyroxine Sodium 125 MCG TAB PO SCH (05:32)
[2020-11-10] MEDS: Acetaminophen 325 MG TAB PO PRN ×2 (05:32→09:06)
[2020-11-10] MEDS ORDERED: Torsemide 10 MG TAB PO SCH (09:00)
[2020-11-10] MEDS: Enoxaparin Sodium 60 MG/0.6 ML SYRINGE SC SCH ×2 (09:06→21:09)
[2020-11-10] MEDS: Loratadine 10 MG TAB PO SCH (09:06)
[2020-11-10] MEDS: Metoprolol Tartrate 25 MG TAB PO SCH ×2 (09:06→21:09)
[2020-11-10] MEDS: Acetaminophen 325 MG TAB PO SCH ×2 (15:34→21:10)
[2020-11-10] MEDS: Warfarin Sodium 5 MG TAB PO SCH (17:18)
--- NOTE | 2020-11-10 18:46 | PDOC.HOSPP ---
- Subjective Encounter Date: 11/10/20 Encounter Time: 10:45 Subjective: Patient seen and examined for respiratory failure due to pulmonary embolism. Denies any shortness of breath or cough. No chest pain reported. - Objective Vital Signs & Weight: Vital Signs (12 hours) Temp Pulse Resp BP BP Pulse Ox 11/10/20 18:25 101 H 18 94 L 11/10/20 16:02 97.4 F L 113 H 19 138/88 95 11/10/20 14:11 78 18 11/10/20 08:59 98.2 F 106 H 20 125/57 L 97 11/10/20 07:25 73 20 Weight Weight 158 lb 4.8 oz I&O: 11/09/20 11/10/20 11/11/20 06:59 06:59 06:59 Intake Total 1680 1320 Output Total 1475 1100 Balance 205 220 Result Diagrams: 11/10/20 03:52 11/10/20 03:52 EKG Reviewed by me: Yes (John eaton on telemetry) Hospitalist ROS - Review of Systems Cardiovascular: denies: chest pain, palpitations, orthopnea, paroxysmal noc. dyspnea, edema, light headedness, other Gastrointestinal: denies: nausea, vomiting, abdominal pain, diarrhea, constipation, melena, hematochezia, other - Medication Medications: Active Medications Generic Name Dose Route Start Last Admin Trade Name Freq PRN Reason Stop Dose Admin Acetaminophen 650 mg 11/09/20 17:39 11/10/20 09:06 Acetaminophen 325 Mg Tab PO 650 mg Q4H PRN Administration Headache/Fever or Mild Pain Acetaminophen 650 mg 11/10/20 15:00 11/10/20 15:34 Acetaminophen 325 Mg Tab PO 650 mg TID SEAN Administration Albuterol/Ipratropium 3 ml 11/07/20 13:00 11/10/20 18:25 Ipratropium/Albuterol Sulfate 3 Ml Neb NEB 3 ml [id number] SEAN Administration Atorvastatin Calcium 80 mg 11/07/20 21:00 11/09/20 21:01 Atorvastatin Calcium 40 Mg Tab PO 80 mg HS SEAN Administration Enoxaparin Sodium 50 mg 11/08/20 21:00 11/10/20 09:06 Enoxaparin Sodium 60 Mg/0.6 Ml Syringe SC 50 mg 0900,2100 SEAN Administration Levothyroxine Sodium 125 mcg 11/07/20 06:00 11/10/20 05:32 Levothyroxine Sodium 125 Mcg Tab PO 125 mcg 0600 SEAN Administration Loratadine 10 mg 11/08/20 09:00 11/10/20 09:06 Loratadine 10 Mg Tab PO 10 mg DAILY SEAN Administration Metoprolol Tartrate 25 mg 11/07/20 09:00 11/10/20 09:06 Metoprolol Tartrate 25 Mg Tab PO 25 mg BID SEAN Administration Phenytoin Sodium 50 mg 11/07/20 15:00 11/09/20 16:45 Phenytoin 50 Mg Chewable Tablet PO 50 mg Q2D SEAN Administration Phenytoin Sodium 200 mg 11/07/20 21:00 11/09/20 09:27 Phenytoin Sodium Extended 100 Mg Cap PO Not Given QPM SEAN Phenytoin Sodium 300 mg 11/07/20 09:00 11/10/20 09:06 Phenytoin Sodium Extended 100 Mg Cap PO 300 mg DAILY SEAN Administration Torsemide 10 mg 11/10/20 09:00 11/10/20 09:06 Torsemide 10 Mg Tab PO 10 mg DAILY SEAN Administration Warfarin Sodium 5 mg 11/09/20 17:00 11/10/20 17:18 Warfarin Sodium 5 Mg Tab PO 5 mg 1700 [facility] Administration - Exam General Appearance: ill appearing Heart: RRR, no gallops Respiratory: no wheezes, no rales Gastrointestinal: soft, non-distended, normal bowel sounds Extremities: no cyanosis, no clubbing Neurological: no new deficit Hosp A/P - Plan DVT proph w/lovenox Acute hypoxic respiratory failure Acute pulmonary embolism Chronic diastolic heart failure Acute kidney injury on CKD stage III Hyponatremia/hypokalemia Lactic acidosis probably due to intravascular volume depletion Extensive peripheral vascular disease with 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 Continue Lovenox at low-dose due to severe anemia. Recheck PT/INR in a.m. Increase torsemide to 20 mg daily. Monitor labs on a daily basis. Continue other medications as above. GI input appreciated. Await stool for occult blood. Patient and the family understand the risk associated with anticoagulation.
[2020-11-10] MEDS: Atorvastatin Calcium 40 MG TAB PO SCH (21:09)
--- NOTE | 2020-11-10 23:04 | PRG ---
DATE OF SERVICE: 11/10/2020 The patient is generally feeling poorly. CBC today shows WBC 9900, hemoglobin 7.5, and platelet count of 210,000. Serum ferritin is 53.72. Serum iron is low at 15. TIBC is 335, which is toward the higher side. The patient had isolated anemia with normal WBC and platelet. These favored the diagnosis of iron deficiency. His stool for occult blood is pending. According to Dr. Stepan Peter's consult, the patient did not have colonoscopy in 2019. I am going to ask for GI consult to see if he can have colonoscopy. If colonoscopy cannot be done, the next, somewhat invasive action will be to do a bone marrow to see if he actually had iron-deficiency anemia. The patient likely will require transfusion in very near future. Job ID: [id number] [facility]
[2020-11-11] MEDS: Levothyroxine Sodium 125 MCG TAB PO SCH (03:12)
[2020-11-11] MEDS: Acetaminophen 325 MG TAB PO PRN (03:12)
[2020-11-11 04:27] LABS: #Eosinphils 0.2 thou/uL (0.0-0.7); #Lymphocytes 1.4 thou/uL (1.20-3.40); #Monocytes 0.7 thou/uL (0.11-0.59); #Neutrophils 4.8 thou/uL (1.40-6.50); %Basophils 0.1 % (0.0-1.0); %Eosinophils 2.7 % (0.0-10.0); %Lymphocytes 19.3 % (21.0-51.0); %Monocytes 10.4 % (0.0-10.0); %Neutrophils 67.4 % (42.0-75.0); Hemoglobin 7.7 g/dL (14.0-18.0); Mean Corpuscular HGB CONC 30.8 g/dL (32.0-36.0); Mean Corpuscular Hemoglobin 28.3 pg (27.0-31.0); Mean Corpuscular Volume 91.8 fL (78.0-98.0); Mean Platelet Volume 8.3 fL (7.4-10.4); Platelet Count 223 thou/uL (130-400); RBC Distribution Width 17.3 % (11.5-14.5); Red Blood Cell (RBC) Count 2.72 mill/uL (4.70-6.10); White Blood Cell (WBC) Count 7.1 thou/uL (4.8-10.8)
[2020-11-11 04:32] LABS: INR-International Normal Ratio 1.4; Prothrombin Time 17.8 sec (12.0-14.7)
[2020-11-11 04:52] LABS: Anion Gap 17 mmol/L (10-20); BUN (Urea Nitrogen) 46 mg/dL (8.4-25.7); Calc. Creatinine Clearance 36 mL/min (70-130); Carbon Dioxide 26 mmol/L (23-31); Chloride 95 mmol/L (98-107); Glucose 99 mg/dL (83-110); Magnesium 2.4 mg/dL (1.6-2.6); Potassium 4.6 mmol/L (3.5-5.1); Sodium 133 mmol/L (136-145)
[2020-11-11] MEDS ORDERED: traMADol HCl 50 MG TAB PO SCH (06:15)
[2020-11-11] MEDS ORDERED: Dextrose 50% Abboject 50 ML SYRINGE ONE (06:32)
[2020-11-11] MEDS ORDERED: Torsemide 20 MG TAB PO SCH (09:00)
[2020-11-11] MEDS: Metoprolol Tartrate 25 MG TAB PO SCH ×2 (09:06→20:14)
[2020-11-11] MEDS: Acetaminophen 325 MG TAB PO SCH ×3 (09:11→20:15)
[2020-11-11] MEDS: Potassium Chloride 10 MEQ TAB PO SCH ×2 (09:11→16:33)
[2020-11-11] MEDS: Enoxaparin Sodium 60 MG/0.6 ML SYRINGE SC SCH ×2 (09:12→20:14)
[2020-11-11] MEDS: Loratadine 10 MG TAB PO SCH (09:12)
[2020-11-11] MEDS ORDERED: Iron, Sodium Ferric Gluconate 250 MG in Sodium Chloride 0.9% 100 ML IVPB SCH (13:00)
[2020-11-11] MEDS: Phenytoin 50 MG Chewable Tablet PO SCH (15:24)
--- NOTE | 2020-11-11 16:24 | CON ---
DATE OF CONSULTATION: 11/11/2020 CONSULTING PHYSICIAN: Dr. Lauryn Busch. REASON FOR CONSULTATION: Anemia. HISTORY OF PRESENT ILLNESS: Mr. Giles is an 89-year-old gentleman, who presented to the hospital on the with right lower extremity pain. Ultimately, he was diagnosed with a pulmonary embolus, when he had an aortogram done to evaluate the pain in his leg. That study also showed dilation of the hepatic veins and intrahepatic IVC consistent with passive congestion of liver and a small amount of fluid in the perihepatic region. Liver was also found to be nodular. He has been started on anticoagulation. Apparently, he has had issues with anemia in the past at the NH. He reports that his blood thinners which he has been on for about 40 years have been stop secondary to anemia. He denies any melena, hematochezia, or hematemesis. On talking with his who is with him, he has not had any prior endoscopies. His hemoglobins prior to this admission ranged between 9 and 10 and here it has been around 7. Last year in March, he was seen by Dr. Valadez for reported anemia at the NH. By the time he saw him, his CBC was normal with a hemoglobin of 13.7. Vitamin B12, ferritin, folic acid, iron studies were all normal. An EGD at that time was normal. The patient's last colonoscopy was in 2006, which was normal. There was discussion about repeating the colonoscopy when he was seen recently in 03/2019. The patient and his refused it at that time. PAST MEDICAL HISTORY: 1. Chronic diastolic heart failure, hypertension, coronary artery disease, paroxysmal atrial fibrillation, and prior DVT, remote history. 2. Incidental pulmonary embolus, diagnosed in this admission. 3. Hypothyroidism. 4. Gout. 5. Obstructive sleep apnea. PAST SURGICAL HISTORY: Laminectomy, coronary artery bypass surgery, cholecystectomy, aortic valve replacement with bovine, endoscopy in March of 2019. Drugs with adverse effect, penicillin. SOCIAL HISTORY: The patient lives with his . Previous smoker. He does not drink. REVIEW OF SYSTEMS: He has had to use the CPAP last night, had been short winded. He has been eating well. He denies melena, hematochezia, hematemesis, or change in appetite. He is somewhat forgetful. His answers most of his questions. The patient has no known history of hepatitis or liver disease. MEDICATIONS: Medications here; 1. Tylenol. 2. DuoNeb. 3. Lipitor. 4. Lovenox 50 subcu q.12. 5. Synthroid. 6. Dilantin. 7. Coumadin 5 mg daily. 8. Furosemide. Home medicines; 1. Levothyroxine. 2. Dilantin. 3. Metolazone. 4. Furosemide. 5. Metoprolol. 6. Allopurinol. 7. Aspirin. 8. Atorvastatin. 9. Spironolactone. FAMILY HISTORY: Negative for colon cancer or liver disease. PHYSICAL EXAMINATION: VITAL SIGNS: Temperature is 98, pulse 103, blood pressure 112/57. GENERAL: Mr. Giles is thin and frail. He is in no distress. He is hard of hearing. He knows where he is. He does not know the exact date. LUNGS: He has decreased breath sounds in the right base on lung exam. CARDIAC: He has 2/6 systolic ejection murmur. He has notable JVD. ABDOMEN: Notable for some shifting dullness. There is no palpable hepatosplenomegaly. EXTREMITIES: No clubbing, cyanosis, or edema. LABORATORY STUDIES: Hemoglobin 7.7 today with white count 7.1, platelet count 223, and MCV 91, back in December of this year, it was in 102 to 103 range. Sedimentation rate 16. INR 1.4. Sodium 133, potassium 4.6, chloride 95, bicarb 26, BUN and creatinine are 46 and 1.45. On admission, BUN and creatinine were 92 and 2.07. AST 54, ALT 66, alkaline phosphatase 196. Other labs; iron 15 on 11/07, TIBC 335, ferritin is 52. B12 is 1733, folate 11.5. Echo from 12/2019 showed severe tricuspid regurgitation, mild aortic stenosis, moderate regurgitation, left atrium dilatation, EF 60% to 65%. Hip films this admission, no fracture. Chest x-ray on 11/07, peripheral calcified pericardial cyst, right atrium. Venogram, negative for DVT on 11/07/2020. ASSESSMENT: 1. This is an 89-year-old gentleman, who came to the hospital, he is not eating well, not getting around well at home and felt weak, complaining of some leg pain and some plain films that showed no evidence of fracture. An aortogram with runoff to check for vascular insufficiency showed none, but showed incidental findings of a possible PE in the right lung. He is now on anticoagulation for this. 2. 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 He has negative hepatitis A, B, and C serologies recently. 3. Iron deficiency anemia. It does not appear that he has had any acute hemorrhage in talking with the patient and family, although that is really difficult to know as he is not a good historian. Since early 2019, his hemoglobin is usually in the 9 to 10 range. Since September, it has been in the 9 to 7 range. He was seen in our office last year for anemia that developed following blood thinner at the NH, apparently we stopped the blood thinner and EGD was nondiagnostic. The patient and family refused a colonoscopy. Here, he has normocytic normochromic anemia with low iron stores. RECOMMENDATIONS: 1. I have discussed with the patient's family endoscopy. In light of his multiple medical problems and heart failure, they did not want to proceed with a colonoscopy at this time or repeat the upper endoscopy. This is consistent with their decisions in last March. 2. With regard to this decision, I would recommend a PPI and trial of IV iron supplementation. 3. With regard to his cirrhosis, no further workup is indicated at this time. I would treat him as you would in any other individuals with right-sided heart failure, salt restriction fluid balance with p.r.n. diuretics. Dr. Valadez is returning, will be following for GI service tomorrow. Please call if you have any questions. Job ID: [id number]
[2020-11-11] MEDS: Warfarin Sodium 5 MG TAB PO SCH (16:33)
[2020-11-11 17:14] LABS: Albumin 3.1 g/dL (2.9-4.4); Alpha 1 0.3 g/dL (0.0-0.4); Alpha 2 0.6 g/dL (0.4-1.0); Beta 0.9 g/dL (0.7-1.3); Gamma 1.2 g/dL (0.4-1.8); Globulin, Total 3.2 g/dL (2.2-3.9); M-Spike 0.7 g/dL (Not Observed)
[2020-11-11] MEDS: Atorvastatin Calcium 40 MG TAB PO SCH (20:15)
--- NOTE | 2020-11-11 22:32 | PDOC.HOSPP ---
- Subjective Encounter Date: 11/11/20 Encounter Time: 14:30 Subjective: Patient seen and examined for pulmonary embolism/respiratory failure. Denies any new complaints. Intermittent confusion. No GI bleeding reported. Denies any chest pain. - Objective Vital Signs & Weight: Vital Signs (12 hours) Temp Pulse Pulse Resp BP BP Pulse Ox 11/11/20 18:22 105 H 20 95 11/11/20 15:19 97.6 F 103 H 17 107/57 L 94 L 11/11/20 13:52 96 20 94 L 11/11/20 13:22 120 H 126/59 L 11/11/20 12:00 97.8 F 103 H 19 112/57 L 98 Weight Weight 159 lb 3.2 oz I&O: 11/10/20 11/11/20 11/12/20 06:59 06:59 06:59 Intake Total 1320 240 500 Output Total 1100 400 400 Balance 220 -160 100 Result Diagrams: 11/11/20 04:08 11/11/20 04:08 Additional Labs: Abnormal Lab Results - Last 48 hrs 11/09/20 04:07: M-Adams 0.7 H 11/10/20 03:52: PT 15.2 H 11/10/20 03:52: Sodium 134 L, Chloride 97 L, BUN 34 H 11/10/20 03:52: RBC 2.54 L, Hgb 7.5 L, Hct 23.9 L, MCHC 31.6 L, RDW 17.0 H, Neutrophils % 77.8 H, Lymphocytes % 12.3 L, Neutrophils # 7.7 H, Monocytes # 0.9 H 11/11/20 04:08: PT 17.8 H 11/11/20 04:08: Sodium 133 L, Chloride 95 L, BUN 46 H, Creatinine 1.45 H 11/11/20 04:08: RBC 2.72 L, Hgb 7.7 L, Hct 25.0 L, MCHC 30.8 L, RDW 17.3 H, Lymphocytes % 19.3 L, Monocytes % 10.4 H, Monocytes # 0.7 H Microbiology - Entire Visit 11/11/20 00:30 Stool - Final EKG Reviewed by me: Yes (Atrial fibrillation on telemetry) Hospitalist ROS - Review of Systems Cardiovascular: denies: chest pain, palpitations, orthopnea, paroxysmal noc. dyspnea, edema, light headedness, other Gastrointestinal: denies: nausea, vomiting, abdominal pain, diarrhea, co nstipation, melena, hematochezia, other - Medication Medications: Active Medications Generic Name Dose Route Start Last Admin Trade Name Freq PRN Reason Stop Dose Admin Acetaminophen 650 mg 11/09/20 17:39 11/11/20 03:12 Acetaminophen 325 Mg Tab PO 650 mg Q4H PRN Administration Headache/Fever or Mild Pain Acetaminophen 650 mg 11/10/20 15:00 11/11/20 20:15 Acetaminophen 325 Mg Tab PO 650 mg TID SEAN Administration Albuterol/Ipratropium 3 ml 11/07/20 13:00 11/11/20 18:22 Ipratropium/Albuterol Sulfate 3 Ml Neb NEB 3 ml [id number] SEAN Administration Atorvastatin Calcium 80 mg 11/07/20 21:00 11/11/20 20:15 Atorvastatin Calcium 40 Mg Tab PO 80 mg HS SEAN Administration Enoxaparin Sodium 50 mg 11/08/20 21:00 11/11/20 20:14 Enoxaparin Sodium 60 Mg/0.6 Ml Syringe SC 50 mg 0900,2100 SEAN Administration Levothyroxine Sodium 125 mcg 11/07/20 06:00 11/11/20 03:12 Levothyroxine Sodium 125 Mcg Tab PO 125 mcg 0600 SEAN Administration Loratadine 10 mg 11/08/20 09:00 11/11/20 09:12 Loratadine 10 Mg Tab PO 10 mg DAILY SEAN Administration Metoprolol Tartrate 25 mg 11/07/20 09:00 11/11/20 20:14 Metoprolol Tartrate 25 Mg Tab PO 25 mg BID SEAN Administration Phenytoin Sodium 50 mg 11/07/20 15:00 11/11/20 15:24 Phenytoin 50 Mg Chewable Tablet PO 50 mg Q2D SEAN Administration Phenytoin Sodium 200 mg 11/07/20 21:00 11/11/20 20:15 Phenytoin Sodium Extended 100 Mg Cap PO 200 mg QPM SEAN Administration Phenytoin Sodium 300 mg 11/07/20 09:00 11/11/20 09:12 Phenytoin Sodium Extended 100 Mg Cap PO 300 mg DAILY SEAN Administration Potassium Chloride 10 meq 11/11/20 08:00 11/11/20 16:33 Potassium Chloride 10 Meq Tab PO 10 meq BID-WM SEAN Administration Sodium Chloride 10 ml 11/11/20 21:00 11/11/20 20:15 Flush - Normal Saline 10 Ml Syringe IVF 10 ml Q12HR SEAN Administration Torsemide 20 mg 11/11/20 09:00 11/11/20 09:07 Torsemide 20 Mg Tab PO Not Given DAILY SEAN Warfarin Sodium 5 mg 11/09/20 17:00 11/11/20 16:33 Warfarin Sodium 5 Mg Tab PO 5 mg 1700 SEAN Administration - Exam General Appearance: ill appearing Neck: supple, no JVD Heart: no gallops, no rubs, irregular Respiratory: no wheezes, no rales Gastrointestinal: non-tender, non-distended Extremities: no cyanosis Hosp A/P - Plan DVT proph w/lovenox Acute hypoxic respiratory failure Acute pulmonary embolism Chronic diastolic heart failure Acute kidney injury on CKD stage III Hyponatremia/hypokalemia Lactic acidosis probably due to intravascular volume depletion Extensive peripheral vascular disease 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 Continue warfarin with Lovenox. Hold torsemide due to JOANNE. Hold potassium supplementation. Recheck labs in a.m. Continue home CPAP. Iron supplementation. Palliative care input appreciated. Patient and family declining colonoscopy at this time. Stool for occult blood negative
[2020-11-12 03:05] LABS: INR-International Normal Ratio 1.8; Prothrombin Time 20.8 sec (12.0-14.7)
[2020-11-12 03:10] LABS: #Eosinphils 0.2 thou/uL (0.0-0.7); #Lymphocytes 1.5 thou/uL (1.20-3.40); #Monocytes 0.6 thou/uL (0.11-0.59); #Neutrophils 4.9 thou/uL (1.40-6.50); %Basophils 0.3 % (0.0-1.0); %Eosinophils 2.6 % (0.0-10.0); %Lymphocytes 20.2 % (21.0-51.0); %Neutrophils 68.9 % (42.0-75.0); Hemoglobin 7.3 g/dL (14.0-18.0); Mean Corpuscular Hemoglobin 28.7 pg (27.0-31.0); Mean Corpuscular Volume 92.6 fL (78.0-98.0); Mean Platelet Volume 8.3 fL (7.4-10.4); Platelet Count 200 thou/uL (130-400); RBC Distribution Width 17.4 % (11.5-14.5); Red Blood Cell (RBC) Count 2.52 mill/uL (4.70-6.10); White Blood Cell (WBC) Count 7.2 thou/uL (4.8-10.8)
[2020-11-12 03:12] LABS: Anion Gap 14 mmol/L (10-20); BUN (Urea Nitrogen) 52 mg/dL (8.4-25.7); Calc. Creatinine Clearance 37 mL/min (70-130); Calcium 7.8 mg/dL (7.8-10.44); Carbon Dioxide 26 mmol/L (23-31); Chloride 92 mmol/L (98-107); Glucose 93 mg/dL (83-110); Magnesium 2.4 mg/dL (1.6-2.6); Potassium 4.2 mmol/L (3.5-5.1); Sodium 128 mmol/L (136-145)
[2020-11-12] MEDS: Levothyroxine Sodium 125 MCG TAB PO SCH (05:18)
[2020-11-12] MEDS: Acetaminophen 325 MG TAB PO SCH ×2 (08:23→14:15)
[2020-11-12] MEDS: Loratadine 10 MG TAB PO SCH (08:24)
[2020-11-12] MEDS: Metoprolol Tartrate 25 MG TAB PO SCH (08:24)
[2020-11-12] MEDS ORDERED: Enoxaparin Sodium 40 MG/0.4 ML SYRINGE SC SCH (09:00)
[2020-11-12] MEDS ORDERED: traMADol HCl 50 MG TAB PO PRN (10:21)
--- NOTE | 2020-11-12 13:18 | PRG ---
DATE OF SERVICE: 11/12/2020 SUBJECTIVE: The patient is sitting up at the bedside. Primary complaint is shortness of breath. He denies any nausea, vomiting, or abdominal pain. He had a bowel movement this morning without any overt blood or melena. PHYSICAL EXAMINATION: VITAL SIGNS: Temperature is 97.8, blood pressure 101/53, and pulse of 89. GENERAL: He is alert without distress. HEENT: Shows anicteric sclerae. NECK: Supple. CV: Shows normal S1 and S2. Regular rate and rhythm. CHEST: Shows breath sounds. ABDOMEN: Soft. No distention. It is nontender to palpation. He has normoactive bowel sounds. EXTREMITIES: Show no edema. LABORATORY: Hemoglobin 7.3 (ranged between 7.5 to 7.7 over the last four days). WBC 7.2, platelet count of 200. Sodium 128, potassium 4.2, chloride 92, CO2 of 26, creatinine 1.41. INR 1.8. PT of 28.8 seconds. ASSESSMENT: 1. Iron deficiency anemia with heme-positive stool, but without any overt bleeding. The patient is back on warfarin with Lovenox for pulmonary embolism. There is no overt bleeding, and hemoglobin has remained fairly stable over the last four days. Outpatient EGD last year was negative. Family does not want to pursue further tests or colonoscopy. 2. Acute pulmonary embolism. 3. Diastolic heart failure. 4. Chronic kidney disease. 5. Peripheral vascular disease. 6. Cirrhosis with evidence of passive congestion by CT. No signs of significant clinical decompensation. RECOMMENDATION: 1. Continue to observe and trend his blood count and watch for any overt bleeding while starting on warfarin. 2. Continue with pantoprazole 40 mg daily. 3. We will follow. Job ID: [id number]
[2020-11-12 15:07] VITALS: BP 114/57; TEMP 97.5
[2020-11-12] MEDS ORDERED: Warfarin Sodium 2.5 MG TAB PO SCH (17:00)
--- NOTE | 2020-11-13 09:41 | PDOC.DS.DS ---
Provider - Provider Date of Admission: 11/06/20 20:31 Date of Discharge: 11/12/20 Admitting Provider: Sahara Riley MD Primary Care Physician: Jacobo Lai MD Course - Hospital Course Hospital Course: Patient is a 89-year-old male with coronary artery disease, chronic anemia congestive heart failure and paroxysmal atrial fibrillation currently not on anticoagulation presented to the emergency room on 11/06 with generalized weakness and right foot pain. He underwent CT angiogram of the abdomen and pelvis with bilateral lower extremity runoffs that showed probable distal right basilar pulmonary embolism with severe stenosis of the left popliteal artery. Dopplers were negative for DVT. He was evaluated by multiple consultants. Please refer to their notes for further details. Cardiovascular recommended outpatient follow-up for peripheral vascular disease. His symptoms are probably not from peripheral vascular disease per Dr. Scott. He was seen by pulmonary recommended anticoagulation with warfarin rather than newer anticoagulants due to anemia. He was started on Lovenox with warfarin with daily INR monitoring. Patient was evaluated by hematology due to persistent anemia. Hematology consulted gastroenterology who recommended close follow-up on hemoglobin. Colonoscopy was offered however patient declined. The patient and the family eventually decided to go home with hospice. His INR on the day of discharge was 1.8. Warfarin has been discontinued. Patient and the family understand the risk associated with pulmonary embolism while not on anticoagulation. 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 Abnormal LFTs probably due to passive hepatic congestionimproving Seizure disorder Questionable cirrhosis with ascites Resuscitation Status: 11/11/20 14:50 Resuscitation Status Routine Resuscitation Status: DNAR: NO Resuscitation Discussed with: confirmed with pt and his - Labs Lab Results: 11/12/20 02:44 11/12/20 02:44 Abnormal Lab Results - Last 48 hrs 11/09/20 04:07: M-Adams 0.7 H 11/12/20 02:44: Sodium 128 L, Chloride 92 L, BUN 52 H, Creatinine 1.41 H 11/12/20 02:44: RBC 2.52 L, Hgb 7.3 L, Hct 23.4 L, MCHC 31.0 L, RDW 17.4 H, Lymphocytes % 20.2 L, Monocytes # 0.6 H 11/12/20 02:44: PT 20.8 H Microbiology - Entire Visit 11/11/20 22:23 Stool - Final 11/11/20 00:30 Stool - Final - Physical Exam Vitals: Weight Weight 166 lb Physical Exam: The patient was seen and examined on the day of discharge. Plan - Discharge Medications Prescriptions: Pantoprazole [Protonix] 40 mg PO DAILY #30 tab Home Medications: Medication Instructions Recorded Confirmed Type Atorvastatin Calcium 80 mg PO HS 09/02/16 11/07/20 History Levothyroxine Sodium [Synthroid] 125 mcg PO QAM 01/15/20 11/07/20 History Metoprolol Tartrate 25 mg PO BID 01/15/20 11/07/20 History Phenytoin 50 mg PO Q2DAYS 11/07/20 11/07/20 History Phenytoin Sodium Extended 2 capsule PO QPM 11/07/20 11/07/20 History [Dilantin] Phenytoin Sodium Extended 3 capsule PO DAILY 11/07/20 11/07/20 History [Dilantin] Aspirin [Ecotrin Regular Strength] 243 mg PO DAILY #0 11/12/20 11/07/20 Rx Pantoprazole [Protonix] 40 mg PO DAILY #30 tab 11/12/20 Rx Torsemide [Demadex] 20 mg PO DAILY tab 11/12/20 Rx Allergies: Penicillins Allergy (Verified 11/07/20 00:25) - Discharge Instructions Discharge Instructions:: Restart aspirin on 11/17 - Follow up Plan Referrals: [facility] [Outside] (Home with hospice services.) Jacobo Lai MD [Primary Care Provider] - 7 Days (Follow up with your primary care provider within 7 days) Bryce Gutierrez MD [Active] - (Follow up with pulmonology as discussed. ) Lauryn Busch MD [Active] - 12/04/20 3:00 pm (Please go to your appointment with Dr. Busch.) Disposition: HOSPICE-HOME Quality - Care Measures CORE MEASURES:: N/A
== END 2020-11-12 15:18 | disposition hospice, home (50) | DRG 175 ==
LOC: ERS 16:13 → 2NO 20:31
PROVIDERS: ADMIT Internal Medicine; ATTEND Internal Medicine
PROC: 5A09357 Assistance with Respiratory Ventilation, Less than 24 Consecutive Hours, Continuous Positive Airway Pressure (ICD-10-PCS; principal; 2020-11-07)
DX: I26.99 Other pulmonary embolism without acute cor pulmonale (principal); J96.01 Acute respiratory failure with hypoxia; I50.32 Chronic diastolic (congestive) heart failure; N17.9 Acute kidney failure, unspecified; I13.0 Hypertensive heart and chronic kidney disease with heart failure and stage 1 through stage 4 chronic kidney disease, or unspecified chronic kidney disease; E87.1 Hypo-osmolality and hyponatremia; E87.2 Acidosis; R18.8 Other ascites; Z66 Do not resuscitate; Z20.828 Contact with and (suspected) exposure to other viral communicable diseases; M10.9 Gout, unspecified; E78.00 Pure hypercholesterolemia, unspecified; F03.90 Unspecified dementia, unspecified severity, without behavioral disturbance, psychotic disturbance, mood disturbance, and anxiety; G40.409 Other generalized epilepsy and epileptic syndromes, not intractable, without status epilepticus; I25.10 Atherosclerotic heart disease of native coronary artery without angina pectoris; I48.0 Paroxysmal atrial fibrillation; G47.33 Obstructive sleep apnea (adult) (pediatric); N18.30 Chronic kidney disease, stage 3 unspecified; E87.6 Hypokalemia; E86.9 Volume depletion, unspecified; I70.202 Unspecified atherosclerosis of native arteries of extremities, left leg; D50.9 Iron deficiency anemia, unspecified; K74.60 Unspecified cirrhosis of liver; Z79.01 Long term (current) use of anticoagulants; Z86.718 Personal history of other venous thrombosis and embolism; Z95.1 Presence of aortocoronary bypass graft; Z87.891 Personal history of nicotine dependence; Z95.2 Presence of prosthetic heart valve; Z88.0 Allergy status to penicillin; Z95.5 Presence of coronary angioplasty implant and graft; Z90.49 Acquired absence of other specified parts of digestive tract; Z79.82 Long term (current) use of aspirin; Z79.890 Hormone replacement therapy; Z79.899 Other long term (current) drug therapy
CPT/HCPCS: 36415; 71045; 75635; 80048; 80053; 82270; 82607; 82728; 82746; 83540; 83550; 83605; 83615; 83690; 83735; 83880; 84100; 84165; 84466; 85025; 85046; 85610; 85652; 86140; 86850; 86900; 86901; 87635; 93005; 93970; 94640; 96372; 96374; 96375; J1650; J1940; J2270; J2916; J3490; J7620; Q9967; U0003